=== PATIENT | male | born 1965 | race African-American/Black ===

== ENCOUNTER 2021-08-15 01:32 | Emergency (ER) | payer OTHER, MEDICAID ==
[~2021-08-15] VITALS: Ht 188 cm; Wt 113.4 kg
[2021-08-15 01:45] VITALS: BP 128/100
[2021-08-15 03:05] LABS: Basophils # (auto) 0.1 10 ^3/uL (0-0.2); Eosinophils # (auto) 0 10 ^3/uL (0-0.8)
[2021-08-15 03:08] LABS: Monocytes # (auto) 0.6 10 ^3/uL (0-1.3)
[2021-08-15 03:20] LABS: Albumin 2.6 g/dL (3.4-5.0); Calcium 8.4 mg/dL (8.5-10.1); Eosinophils % (auto) 0.2 % (0.0-7.0); Potassium 3.8 mmol/L (3.5-5.1)
[2021-08-15 03:23] LABS: Basophils % (auto) 1.3 % (0.0-2.0); Hematocrit 34.9 % (41.0-53.0); Lymphocytes # (auto) 1.6 10 ^3/uL (0.4-5.4); Lymphocytes % (auto) 34.2 % (10.0-50.0); Mean Corpuscular Hemoglobin 23.9 pg (28.0-32.0); Mean Corpuscular Hgb Conc. 31.4 g/dL (32.0-36.0); Monocytes % (auto) 13.9 % (0.0-12.0); Neutrophils # (auto) 2.3 10 ^3/uL (1.6-8.6); Neutrophils % (auto) 50.4 % (37.0-80.0); Nucleated Red Blood Cells % 1.3 %; Red Blood Cells 4.59 10^6/uL (4.5-5.90); White Blood Cell 4.6 10^3/uL (4.4-10.8)
[2021-08-15 03:25] LABS: BUN/Creatinine Ratio 10.7; Bilirubin, Total 3.1 mg/dL (0.2-1.0); Red Cell Distribution Width 23.8 % (11.8-14.3); Total Protein 7.7 g/dL (6.4-8.2)
== END 2021-08-15 05:58 | disposition home or self-care (01) ==
LOC: ER 01:32 → EDBD 01:32 → ER 05:58
DX: R51.9 Headache, unspecified (principal); E11.40 Type 2 diabetes mellitus with diabetic neuropathy, unspecified; I13.0 Hypertensive heart and chronic kidney disease with heart failure and stage 1 through stage 4 chronic kidney disease, or unspecified chronic kidney disease; E11.22 Type 2 diabetes mellitus with diabetic chronic kidney disease; N18.9 Chronic kidney disease, unspecified; I50.9 Heart failure, unspecified; Z88.6 Allergy status to analgesic agent
CPT/HCPCS: 36415; 71045; 80053; 83880; 84484; 85025; 93005

== ENCOUNTER 2025-03-20 13:27 | Inpatient (IN) | payer MEDICAID, OTHER ==
[~2025-03-20] VITALS: Ht 188 cm; Wt 92.0 kg
[~2025-03-20 13:27] MED LIST: ACET300T51 PO; ATOR20TA50 PO; BUME2TAB5 PO; CEPH500C PO; GABA-1250 PO; HYDR-4798 PO; LEVE500T3 PO; LOS25T PO; SODI650T PO; TIZA-206 PO
--- NOTE | 2025-03-20 13:38 | ECG ---
[facility] Test Date: 2025-03-20 Test Time: 13:24:41 Pat Name: CYNTHIA OROPEZA Department: Room: 0234T Gender: M Bakery Helper: TIMOTHY : 1965 Requested By: EMERGENCY EMERGENCY Order Number: [id number] Reading MD: Jt Ponce Measurements Intervals [place] Rate: 86 P: 80 ND: 212 QRS: 124 QRSD: 115 T: 127 QT: 447 QTc: 535 Interpretive Statements Sinus rhythm Prolonged ND interval Left posterior fascicular block Nonspecific T abnormalities, lateral leads Electronically Signed On 03-23-2025 9:37:33 PDT by Jt Ponce Please click the below link to view image of tracing.
--- NOTE | 2025-03-20 14:23 | ED.PDOC ---
SOB-HPI HPI Comments 60 y/o M, BIBA, with PMHx of CHF, CKF, CVA, DM, HTN, and seizures presents to the ED for CC of shortness of breath. EMS reports, patient is coming from home where he c/o shortness of breath sudden onset, yesterday (03/20/25). Patient relays, that he uses at home oxygen at 4L pm via [place] at night; despite oxygen usage has experienced no relied. Patient denies cough, nasal congestion, sore- throat, chest pain, or fever. No other symptoms or modifying factors are present at this time. Chief Complaint: Shortness of Breath Time Seen by MD: 14:15 Reviewed notes: Nurses Notes, Executive Vice President Of Sales Notes, Medications, Allergies Information Source: Patient, Emergency Med Personnel Mode of Arrival: EMS Severity: Moderate Timing: Hours Duration: Since onset Context: At Rest PE Risk Factors: None History of: CHF Prehospital treatment: None Modifying Factors: Nothing Associated Signs and Symptoms: None Past Medical History PAST MEDICAL HISTORY: CHF, CKF, CVA, DM, HTN, Seizures Surgical History: Denies all surgeries Family History Family History: Reviewed,noncontributory to illness Social History Smoker: Non-Smoker Alcohol: Denies ETOH Use Drugs: Denies Drug Use Lives In: Home Constitutional: denies: chills, diaphoresis, fatigue, fever, malaise, sweats, weakness, others EENTM: denies: blurred vision, double vision, ear bleeding, ear discharge, ear drainage, ear pain, ear ringing, eye pain, eye redness, hearing loss, mouth pain, mouth swelling, nasal discharge, nose bleeding, nose congestion, nose pain, photophobia, tearing, throat pain, throat swelling, voice changes, others Respiratory: reports: shortness of breath; denies: cough, hemoptysis, orthopnea, SOB at rest, SOB with excertion, stridor, wheezing, others Cardiovascular: denies: chest pain, dizzy spells, diaphoresis, Dyspnea on exertion, edema, irregular heart beat, left arm pain, lightheadedness, palpitations, PND, syncope, others Gastrointestinal: denies: abdomen distended, abdominal pain, blood streaked bowels, constipated, diarrhea, dysphagia, difficulty swallowing, hematemesis, melena, nausea, poor appetite, poor fluid intake, rectal bleeding, rectal pain, vomiting, others Genitourinary: denies: burning, dysuria, flank pain, frequency, hematuria, incontinence, penile discharge, penile sore, pain, testicle pain, testicle swelling, urgency, others Neurological: denies: dizziness, fainting, headache, left sided numbness, left sided weakness, numbness, paresthesia, pre-existing deficit, right sided numbness, right sided weakness, seizure, speech problems, tingling, tremors, weakness, others Musculoskeletal: denies: back pain, gout, joint pain, joint swelling, muscle pain, muscle stiffness, neck pain, others Integumetry: denies: bruises, change in color, change in hair/nails, dryness, laceration, lesions, lumps, rash, wounds, others Allergic/Immunocompromised: denies: Difficulty Healing, Frequent Infections, Hives, Itching, others Hematologic/Lymphatic: denies: anemia, blood clots, easy bleeding, easy bruising, swollen glands, others Endocrine: denies: excessive hunger, excessive sweating, excessive thirst, excessive urination, flushing, intolerance to cold, intolerance to heat, unexplained weight gain, unexplained weight loss, others Psychiatric: denies: anxiety, bipolar disorder, depression, hopeless, panic disorder, schizophrenia, sleepless, suicidal, others All Other Systems: Reviewed and Negative Physical Exam General Appearance: Moderate Distress HEENT: Normal ENT Inspection, Pharynx Normal, TMs Normal Neck: Full Range of Motion, Non-Tender, Normal, Normal Inspection Respiratory: Other (Coarse breath sounds) Cardiovascular: No Edema, No JVD, No Murmur, No Gallop, Normal Peripheral Pulses, Regular Rate/Rhythm Breast Exam: Deferred Gastrointestinal: No Organomegaly, Non Tender, No Pulsatile Mass, Normal Bowel Sounds, Soft Genitalia: Deferred Pelvic: Deferred Rectal: Deferred Extremities: Decreased range of motion (Bilateral lower extremity), No calf tenderness, Pedal edema Musculoskeletal : Apperance: Normal Neurologic: Alert, No Motor Deficits, No Sensory Deficits Cerebellar Function: NOT DONE Reflexes: NOT DONE Skin: Wounds (Left ankle area medial aspect wound dehiscence) Peripheral Pulses: 3+ Radial (R), 3+ Radial (L) Lymphatic: No Adenopathy Was a procedure done? Was a procedure done?: No Differential Dx Differential Diagnosis: Anxiety, Asthma, Bronchitis, CHF, COPD, Pneumonia, Pulmonary Embolism, Sinusitis, Pharyngitis, URI X-Ray, Labs, Meds, VS Vital Signs Date Time Temp Pulse Resp B/P (MAP) Pulse Ox O2 Delivery O2 Flow Rate FiO2 03/20/25 13:59 93 18 107/67 (80) 100 03/20/25 13:32 98.0 80 18 111/59 100 98.0 03/20/25 13:27 86 Lab Test 03/20/25 15:19 Range/Units White Blood Count 5.3 4.4-10.8 10^3/uL Red Blood Count 3.07 L 4.5-5.90 10^6/uL Hemoglobin 7.7 L 13.5-17.5 g/dL Hematocrit 23.0 L 41.0-53.0 % Mean Corpuscular Volume 74.7 L 80.0-100.0 fL Mean Corpuscular Hemoglobin 24.9 L 28.0-32.0 pg Mean Corpuscular Hemoglobin Concent 33.3 32.0-36.0 g/dL Red Cell Distribution Width 21.3 H 11.8-14.3 % Platelet Count 73 L 140-450 10^3/uL Mean Platelet Volume 8.8 6.9-10.8 fL Neutrophils (%) (Auto) 65.4 37.0-80.0 % Lymphocytes (%) (Auto) 24.9 10.0-50.0 % Monocytes (%) (Auto) 8.8 0.0-12.0 % Eosinophils (%) (Auto) 0.6 0.0-7.0 % Basophils (%) (Auto) 0.3 0.0-2.0 % Neutrophils # (Auto) 3.4 1.6-8.6 10 ^3/uL Lymphocytes # (Auto) 1.3 0.4-5.4 10 ^3/uL Monocytes # (Auto) 0.5 0-1.3 10 ^3/uL Eosinophils # (Auto) 0 0-0.8 10 ^3/uL Basophils # (Auto) 0 0-0.2 10 ^3/uL Nucleated Red Blood Cells 0.1 % Platelet Estimate Pending Sodium Level 135 L 136-145 mmol/L Potassium Level 3.7 3.5-5.1 mmol/L Chloride Level 99 98-107 mmol/L Carbon Dioxide Level 26 20-31 mmol/L Anion Gap 10 5-15 Blood Urea Nitrogen Pending Creatinine Pending Glomerular Filtration Rate Calc Pending BUN/Creatinine Ratio Pending Serum Glucose Pending Calcium Level 8.1 L 8.7-10.4 mg/dL Troponin I High Sensitivity Pending B-Type Natriuretic Peptide Pending Patient alert. Vitals stable. Complaining of shortness a breath. Answering questions. Has gaps when he speaks possibly from shortness a breath. Possible CHF. He did have a wound in the left ankle medial aspect that has been sutured at [facility]. Wound dehiscence. Was given Lasix. Explained to the patient. Clinically monitoring. [place] [id number] Ph: [phone] DIAGNOSTIC IMAGING Diagnostic Imaging Report : [id number] Signed PATIENT: CYNTHIA OROPEZA ACCT: [id number] UNIT: [id number] : 1965 LOC: ER ROOM / BED: / AGE / SEX: 60 / M ADM STATUS: REG ER SERVICE 1450 ORDERING PHYSICIAN: SKIP MEDRANO MD PROCEDURE(s): CXRP - CHEST PORTABLE REASON: sob ORDER NUMBER(s): [id number], ACCESSION NUMBER(s): [id number] CHEST RADIOGRAPH Indication: sob Technique: Single frontal view of the chest was obtained COMPARISON: XR CHEST 1 VIEW on DOS: 01/19/23, XR CHEST 1 VIEW on DOS: 01/15/23, CHEST PORTABLE on DOS: 08/15/21 FINDINGS: Lines and Tubes: None Lungs: Congestion Pleura: No effusion. No pneumothorax. Cardiomediastinal contours: Cardiomegaly Bones: Unremarkable IMPRESSION: Increased interstital prominence. This may represent pulmonary vascular congestion and/or viral pneumonia. Clinical correlation advised. ATED BY: SEAN MCPHERSON MD DICTATED DATE/TIME: 03/20/251518 SIGNED BY: SEAN MCPHERSON MD SIGNED DATE/TIME: 03/20/251518 CC: Time of 1ST Reevaluation: 14:45 Reevaluation 1ST: Unchanged Patient Education/Counseling: Diagnosis, Treatment Family Education/Counseling: No Family Present SEPSIS Sepsis Screen Date sepsis recognized/suspect: Mar 20, 2025 Time Sepsis recognized/suspect: 1329 Recent Procedure: No On Antibiotic Therapy: No Respiratory Rate >20: No Heart Rate >90: No Temp<36 C (96.8 F) or >38.3 C: No SBP <90 or MAP <65 mmHG: No New Acute Mental Status Change: No Is the patient on CPAP, BIPAP,: No Physician Orders Troponin-I Hs (03/20/25 14:50) Complete Blood Count (03/20/25 14:50) Chest Portable (03/20/25 14:50) Urinalysis (03/20/25 14:50) Basic Metabolic Panel (03/20/25 14:50) Troponin-I Hs (03/20/25 15:50) Troponin-I Hs (03/20/25 17:50) B-Type Natriuretic Peptide (03/20/25 14:50) Rbc Morphology (03/20/25 15:19) Vital Signs Date Time Temp Pulse Resp B/P (MAP) Pulse Ox O2 Delivery O2 Flow Rate FiO2 03/20/25 13:59 93 18 107/67 (80) 100 03/20/25 13:32 98.0 80 18 111/59 100 98.0 03/20/25 13:27 86 Laboratory Tests Test 03/20/25 15:19 White Blood Count 5.3 10^3/uL (4.4-10.8) Departure 1 Departure Time of Disposition: 14:58 Impression: Primary Impression: CHF (congestive heart failure) Qualified Codes: I50.43 - Acute on chronic combined systolic (congestive) and diastolic (congestive) heart failure Disposition: ADMITTED INPATIENT Admit to: Med Surg Condition: Guarded Critical Care Note Critical Care Time?: Yes (90 min-critical care time only) Stability Stability form required: No Heart Score Heart Score: Heart Score Response (Comments) Value History N/A 0 EKG N/A 0 Age N/A 0 Risk Factors N/A 0 Troponin N/A 0 Total 0 I personally scribed for SKIP MEDRANO MD ([email or web address]) on 03/20/25 at 14:23. Electronically submitted by Ramona Zepeda ([email or web address]). I personally scribed for SKIP MEDRANO MD ([email or web address]) on 03/20/25 at 15:57. Electronically submitted by Ramona Zepeda ([email or web address]). SKIP MEDRANO MD Mar 20, 2025 14:23
[2025-03-20] MEDS: FUROSEMIDE 40 MG/4 ML VIAL IV ONE (15:00)
--- NOTE | 2025-03-20 15:22 | DVH ---
CHEST RADIOGRAPH Indication: sob Technique: Single frontal view of the chest was obtained COMPARISON: XR CHEST 1 VIEW on DOS: 01/19/23, XR CHEST 1 VIEW on DOS: 01/15/23, CHEST PORTABLE on DOS: 08/15/21 FINDINGS: Lines and Tubes: None Lungs: Congestion Pleura: No effusion. No pneumothorax. Cardiomediastinal contours: Cardiomegaly Bones: Unremarkable IMPRESSION: Increased interstital prominence. This may represent pulmonary vascular congestion and/or viral pneum onia. Clinical correlation advised.
[2025-03-20 15:46] LABS: Hematocrit 23.0 % (41.0-53.0); Hemoglobin 7.7 g/dL (13.5-17.5); Mean Corpuscular Hemoglobin 24.9 pg (28.0-32.0); Mean Corpuscular Volume 74.7 fL (80.0-100.0); Nucleated Red Blood Cells % 0.1 %
[2025-03-20 15:51] LABS: Chloride 99 mmol/L (98-107); Potassium 3.7 mmol/L (3.5-5.1)
[2025-03-20 15:53] LABS: Anion Gap 10 (5-15); Carbon Dioxide 26 mmol/L (20-31)
[2025-03-20 15:54] LABS: Calcium 8.1 mg/dL (8.7-10.4); Sodium 135 mmol/L (136-145)
[2025-03-20 15:58] LABS: BUN/Creatinine Ratio 11.2 (10.0-20.0); Blood Urea Nitrogen 23 mg/dL (9-23); Glucose 98 mg/dL (74-106)
[2025-03-20 16:18] LABS: Anisocytosis Slight
[2025-03-20] MEDS ORDERED: NITROGLYCERIN 0.4 MG SL TAB SL PRN (17:30)
[2025-03-20] MEDS ORDERED: MORPHINE SULFATE INJ 2 MG/ml SYRG IV PRN (17:30)
[2025-03-20] MEDS ORDERED: ONDANSETRON HCL 4 MG/2 ML VIAL IV PRN (17:30)
[2025-03-20 17:58] LABS: INR 1.25 (0.9-1.15); Partial Thromboplastin Time 34.6 SEC (24.5-34.5); Prothrombin Time 13.0 sec (9.3-11.8)
[2025-03-20 18:12] LABS: Triglycerides 59 mg/dL (< 150)
[2025-03-20 18:14] LABS: Cholesterol 90 mg/dL (< 200)
[2025-03-20 18:34] LABS: HDL Cholesterol 35 mg/dL (40-59)
--- NOTE | 2025-03-20 18:37 | DVHHPRES ---
History of Present Illness Resident Creating Document: SHELLY BHATTI RESIDENT History of Present Illness CYNTHIA OROPEZA is a 60-year-old male with a PMH of CHF, CKD, CVA, type 2 DM, HTN, seizure presented to the ED with the chief complaints of worsening of shortness of breath for 1 week. The patient has been experiencing shortness of breath for about 3 days which has been consistent throughout the day and night, he also reports chest pain started 2 days ago localized in the left side of the chest and the pain is described as sharp and stinging in the same place with the no radiation, no aggravating, no relieving factors. On my assessment patient denies fever, pallor, dizziness, chills, recent flu-like symptoms CV and other associated symptoms at this time. Patient is polysubstance abuser still using, smoking, drinking, methamphetamines occasionally. PMH: As above PSH: None Family history: Noncontributo Social history: lives at home. Smokes cigarettes less than a pack for 40 years, 1 glass per day alcohol use, marijuana abuse and methamphetamine abuse but denies other drug abuse Allergies: No known allergies Home medications: amiodarone 200 mg b.i.d., aspirin 81 mg, Lipitor 20 mg, Coreg 6.25 mg, Cozaar 25 mg, Keppra 500 mg b.i.d., Protonix Patient seen and examined at the bedside. Patient is currently complaining of shortness of breath and rest of the ROS is negative Review of Systems Allergies: Coded Allergies: Aspirin (Verified Allergy, Unknown, 03/20/25) Ibuprofen (Verified Allergy, Unknown, 08/15/21) Lisinopril (Verified Allergy, Unknown, 03/20/25) Medications Current Medications Medications Dose Ordered Sig/Maryan Route Start Time Stop Time Status Last Admin Dose Admin Sodium Chloride 10 ml Q8HR IV 03/20/25 22:00 Ondansetron HCl 4 mg Q4HP PRN IV 03/20/25 17:30 Enoxaparin Sodium 40 mg DAILY SC 03/21/25 10:00 UNV Acetaminophen 650 mg Q6HP PRN PO 03/20/25 17:30 Morphine Sulfate 2 mg Q4HPRN PRN IV 03/20/25 17:30 Nitroglycerin 0.4 mg Q5MINP PRN SL 03/20/25 17:30 Morphine Sulfate 2 mg Q30M PRN IV 03/20/25 17:30 Levetiracetam 500 mg BID PO 03/20/25 22:00 Pantoprazole Sodium 40 mg DAILY@0600 PO 03/21/25 06:00 Amiodarone HCl 200 mg Q12HR PO 03/20/25 22:00 Aspirin 81 mg DAILY PO 03/21/25 10:00 UNV Losartan Potassium 25 mg DAILY PO 03/21/25 10:00 Carvedilol 3.125 mg Q12HR PO 03/20/25 22:00 Atorvastatin Calcium 20 mg HS PO 03/20/25 22:00 Furosemide 40 mg DAILY IV 03/21/25 10:00 Exam Vital Signs Vital Signs Date Time Temp Pulse Resp B/P (MAP) Pulse Ox O2 Delivery O2 Flow Rate FiO2 03/20/25 18:00 98.1 92 18 110/60 (77) 99 98.1 Exam Pt is lying on bed General Appearance: Alert, Oriented X3, Cooperative, Not in acute distress HEENT: Atraumatic, Mucous membranes moist/pink Respiratory: Clear to auscultation, Normal air movement, No added sounds Cardiovascular: Regular rate, Normal S1, Normal S2, No murmurs, reproducible chest tenderness on the right side Abdominal: Active bowel sounds, Soft, no distention, no tenderness Extremities: 1+ BLE edema, Normal pulses, No tenderness/swelling Skin: No Significant rash, except past surgical scars Neuro: Normal speech, sensorimotor deficits none Psych/Mental Status: Mental status NL, Mood NL Nurse was there as outside event sales specialist during examination Labs/Xrays Labs Test 03/20/25 18:24 03/20/25 16:44 03/20/25 15:19 Range/Units Troponin I High Sensitivity 11 </=54 ng/L White Blood Count 5.3 4.4-10.8 10^3/uL Red Blood Count 3.07 L 4.5-5.90 10^6/uL Hemoglobin 7.7 L 13.5-17.5 g/dL Hematocrit 23.0 L 41.0-53.0 % Mean Corpuscular Volume 74.7 L 80.0-100.0 fL Mean Corpuscular Hemoglobin 24.9 L 28.0-32.0 pg Mean Corpuscular Hemoglobin Concent 33.3 32.0-36.0 g/dL Red Cell Distribution Width 21.3 H 11.8-14.3 % Platelet Count 73 L 140-450 10^3/uL Mean Platelet Volume 8.8 6.9-10.8 fL Neutrophils (%) (Auto) 65.4 37.0-80.0 % Lymphocytes (%) (Auto) 24.9 10.0-50.0 % Monocytes (%) (Auto) 8.8 0.0-12.0 % Eosinophils (%) (Auto) 0.6 0.0-7.0 % Basophils (%) (Auto) 0.3 0.0-2.0 % Neutrophils # (Auto) 3.4 1.6-8.6 10 ^3/uL Lymphocytes # (Auto) 1.3 0.4-5.4 10 ^3/uL Monocytes # (Auto) 0.5 0-1.3 10 ^3/uL Eosinophils # (Auto) 0 0-0.8 10 ^3/uL Basophils # (Auto) 0 0-0.2 10 ^3/uL Nucleated Red Blood Cells 0.1 % Platelet Estimate Decreased Hypochromasia (manual) Slight Poikilocytosis (manual) Slight Anisocytosis (manual) Slight Microcytosis Slight Prothrombin Time 13.0 H 9.3-11.8 sec Prothrombin Time INR 1.25 H 0.9-1.15 Activated Partial Thromboplast Time 34.6 H 24.5-34.5 SEC D-Dimer, Quantitative 7.38 H 0.0-0.49 mg/L FEU Sodium Level 135 L 136-145 mmol/L Potassium Level 3.7 3.5-5.1 mmol/L Chloride Level 99 98-107 mmol/L Carbon Dioxide Level 26 20-31 mmol/L Anion Gap 10 5-15 Blood Urea Nitrogen 23 9-23 mg/dL Creatinine 2.05 H 0.700-1.30 mg/dL Glomerular Filtration Rate Calc 36 >90 mL/min BUN/Creatinine Ratio 11.2 10.0-20.0 Serum Glucose 98 74-106 mg/dL Calcium Level 8.1 L 8.7-10.4 mg/dL B-Type Natriuretic Peptide 682.54 0-100 pg/mL Triglycerides Level 59 < 150 mg/dL Cholesterol Level 90 < 200 mg/dL LDL Cholesterol 39 < 100 mg/dL HDL Cholesterol 35 L 40-59 mg/dL SEPSIS Sepsis Screen Date sepsis recognized/suspect: Mar 20, 2025 Time Sepsis recognized/suspect: 1328 Recent Procedure: No On Antibiotic Therapy: No Respiratory Rate >20: No Heart Rate >90: No Temp<36 C (96.8 F) or >38.3 C: No SBP <90 or MAP <65 mmHG: No New Acute Mental Status Change: No Is the patient on CPAP, BIPAP,: No Physician Orders Chest Portable (03/20/25 14:50) Urinalysis (03/20/25 14:50) Troponin-I Hs (03/20/25 17:50) Admit (03/20/25 17:17) Allergies (03/20/25 17:17) Code Status (03/20/25 17:17) 2 Gm Sodium Diet (03/20/25 Dinner) Sodium Chloride Lock (Saline Lock Ns) (03/20/25 22:00) Oxygen Per Hour (03/20/25 17:17) Ondansetron Hcl (Zofran) (03/20/25 17:30) Enoxaparin Sodium (Lovenox) (03/21/25 10:00) Complete Blood Count (03/21/25 04:00) Comprehensive Metabolic Panel (03/21/25 04:00) Cardiac Diet-2gna,Lofat,Lochol (03/20/25 Dinner) Condition: Fair (03/20/25 17:17) Acetaminophen Tablet (Tylenol Tablet) (03/20/25 17:30) Morphine Sulfate Injection (03/20/25 17:30) Nitroglycerin Sublingual (Ntrostat Subli (03/20/25 17:30) Morphine Sulfate Injection (03/20/25 17:30) Oxygen By Nasal Cannula (03/20/25 17:17) Stat Ekg For Chest Pain (03/20/25 17:17) Notify Md Of Changes From Base (03/20/25 17:17) Anthropology Department Chair For 24 Hours (03/20/25 17:17) Emergency Dysrhythmia Protocol (03/20/25 17:17) Rhythm Strips Once Every Shift (03/20/25 17:17) Echo 2d Mode Cardiac Dop (03/20/25 17:17) Magnesium (03/20/25 17:17) Urinalysis (03/20/25 17:17) Thyroid Stimulating Hormone (03/20/25 17:17) Lipid Panel (03/20/25 17:17) Hepatic Panel (03/20/25 17:17) Drug Screen (03/20/25 17:17) Blood Alcohol (03/20/25 17:17) Covid19 Antigen Joyce (03/20/25 17:17) Rapid Influenza A&B (03/20/25 17:17) Levetiracetam Tablet (Keppra Tablet) (03/20/25 22:00) Pantoprazole Tablet (Protonix Tablet) (03/21/25 06:00) Amiodarone Tablet (Cordarone Tablet) (03/20/25 22:00) Aspirin Tablet (03/20/25 17:30) Aspirin Tablet (03/21/25 10:00) Losartan Tablet (Cozaar Tablet) (03/21/25 10:00) Carvedilol Tablet (Coreg Tablet) (03/20/25 22:00) Atorvastatin (Lipitor) (03/20/25 22:00) Furosemide Injection (Lasix Injection) (03/21/25 10:00) Strict I & O QSHIFT (03/20/25 17:17) Maintain Fluid Restrictions QSHIFT (03/20/25 17:17) Vital Signs Date Time Temp Pulse Resp B/P (MAP) Pulse Ox O2 Delivery O2 Flow Rate FiO2 03/20/25 18:00 98.1 92 18 110/60 (77) 99 98.1 03/20/25 13:59 93 18 107/67 (80) 100 03/20/25 13:32 98.0 80 18 111/59 100 98.0 03/20/25 13:27 86 Laboratory Tests Test 03/20/25 15:19 White Blood Count 5.3 10^3/uL (4.4-10.8) Assessment/Plan Assessment/Plan # Acute on chronic systolic versus diastolic CHF # Chest pain rule out ACS likely costochondritis # Polysubstance abuse, methamphetamine, marijuana, alcohol - telemetry - echocardiogram, pending - started on GDM T Coreg, Cozaar - Lasix 40 mg IV daily - CXR showed congestion - strict I&Os and fluid restriction - UDS - continue aspirin # HX of CVA - resumed aspirin and Lipitor # KEKE likely due to VMN on CKD -monitor lab -avoid nephrotoxic agents # Microcytic hypochromic anemia # Thrombocytopenia - monitor lab for now # tobacco use disorder/dependence # methamphetamine use disorder # alcohol use disorder, monitor for withdrawal # marijuana use disorder -counseled regarding cessation for more than 17 minutes -consider nicotine patch if needed GI PPX: Protonix VTE ppx: scds Diet: cardiac diet as tolerated Goals of care addressed with the patient for more than 27 minutes: Full code status Case discussed with Dr. Major ,patient and nurse Plan discussed with: Patient My Orders Orders - SHELLY BHATTI RESIDENT Procedure Category Date Status Time Admit ADMIT 03/20/25 Transmitted 17:17 Allergies YURI 03/20/25 In Process 17:17 Code Status CODE 03/20/25 Transmitted 17:17 2 Gm Sodium Diet DIET 03/20/25 Transmitted Dinner Sodium Chloride Lock PHA 03/20/25 In Process (Saline Lock Ns) 22:00 Oxygen Per Hour RT 03/20/25 Transmitted 17:17 Ondansetron Hcl PHA 03/20/25 In Process (Zofran) 17:30 Enoxaparin Sodium PHA 03/21/25 Logged (Lovenox) 10:00 Complete Blood Count LAB 03/21/25 Verified 04:00 Comprehensive LAB 03/21/25 Verified Metabolic Panel 04:00 Cardiac DIET 03/20/25 Transmitted Diet-2gna,Lofat,Lochol Dinner Condition: Fair YURI 03/20/25 In Process 17:17 Acetaminophen Tablet PHA 03/20/25 In Process (Tylenol Tablet) 17:30 Morphine Sulfate PHA 03/20/25 In Process Injection 17:30 Nitroglycerin PHA 03/20/25 In Process Sublingual (Ntrostat 17:30 Morphine Sulfate PHA 03/20/25 In Process Injection 17:30 Oxygen By Nasal RT 03/20/25 Transmitted Cannula 17:17 Stat Ekg For Chest YURI 03/20/25 In Process Pain 17:17 Notify Of Changes [facility] 03/20/25 In Process From Base 17:17 Anthropology Department Chair For [facility] 03/20/25 In Process 24 Hours 17:17 Emergency Dysrhythmia YURI 03/20/25 In Process Protocol 17:17 Rhythm Strips Once [facility] 03/20/25 In Process Every Shift 17:17 Echo 2d Mode Cardiac US 03/20/25 Logged DOP 17:17 Magnesium LAB 03/20/25 Logged 17:17 Urinalysis LAB 03/20/25 Logged 17:17 Thyroid Stimulating LAB 03/20/25 In Process Hormone 17:17 Lipid Panel LAB 03/20/25 In Process 17:17 Hepatic Panel LAB 03/20/25 Logged 17:17 Drug Screen LAB 03/20/25 Logged 17:17 Blood Alcohol LAB 03/20/25 Logged 17:17 Covid19 Antigen Joyce LAB 03/20/25 Logged 17:17 Rapid Influenza A&B LAB 03/20/25 Logged 17:17 Levetiracetam Tablet PHA 03/20/25 In Process (Keppra Tablet) 22:00 Pantoprazole Tablet PHA 03/21/25 In Process (Protonix Tablet) 06:00 Amiodarone Tablet PHA 03/20/25 In Process (Cordarone Tablet) 22:00 Aspirin Tablet PHA 03/20/25 Logged 17:30 Aspirin Tablet PHA 03/21/25 Logged 10:00 Losartan Tablet PHA 03/21/25 In Process (Cozaar Tablet) 10:00 Carvedilol Tablet PHA 03/20/25 In Process (Coreg Tablet) 22:00 Atorvastatin (Lipitor) PHA 03/20/25 In Process 22:00 Furosemide Injection PHA 03/21/25 In Process (Lasix Injection) 10:00 Strict I & O YURI 03/20/25 In Process 17:17 Maintain Fluid YURI 03/20/25 In Process Restrictions 17:17 Date of Service: Mar 20, 2025 Billing Provider: TIFFANIE AGGARWAL MD Common Visit Codes: 21585-[id number] INP/OBS CARE (HIGH) Secondary Visit Codes: 48305-FOUCNQZH CARE PLAN 30 MINUTES TRIPP BHATTIBenitaROCÍO RESIDENT Mar 20, 2025 18:36 TIFFANIE AGGARWAL MD Mar 27, 2025 18:45
[2025-03-20 19:10] LABS: Alanine Aminotransferase 22 U/L (7-40); Total Protein 6.9 g/dL (5.7-8.2)
[2025-03-20 19:11] LABS: Albumin 2.6 g/dL (3.2-4.8); Alkaline Phosphatase 385 U/L (46-116); Bilirubin, Direct 1.3 mg/dL (<0.3); Bilirubin, Total 2.0 mg/dL (0.2-1.0); Magnesium 1.5 mg/dL (1.6-2.6)
[2025-03-20] MEDS: HYDROcodone-ACET 5/325MG TAB PO ONE (20:40)
[2025-03-20] MEDS: HYDROcodone-ACET 5/325MG TAB ONE (20:40)
[2025-03-20] MEDS: ATORVASTATIN 20 MG TAB PO SCH (22:00)
[2025-03-21] VITALS (18 sets, daily range): BP systolic 90–133; BP diastolic 50–74; PULSE 68–92; RESP 14–22; TEMP 97.1–98.1; O2SAT 89–100
[2025-03-21] MEDS: AMIODARONE HCL 200 MG TAB ONE (00:51)
[2025-03-21] MEDS: ONDANSETRON HCL 4 MG/2 ML VIAL ONE (00:51)
[2025-03-21] MEDS: CARVEDILOL 3.125 MG TAB ONE (00:51)
[2025-03-21] MEDS: levETIRAcetam 500 MG TAB ONE (00:51)
[2025-03-21] MEDS: PANTOPRAZOLE 40 MG/10 ML VIAL INJ IV ONE ×2 (01:03→01:04)
[2025-03-21] MEDS: SODIUM CHLOR 0.9% PF (SALINE LOCK) 10ML VIAL/SYR IV SCH (01:03)
[2025-03-21] MEDS: AMIODARONE HCL 200 MG TAB PO SCH (01:04)
[2025-03-21] MEDS: SODIUM CHLORIDE 0.9% 500 ML IV ONE (01:04)
[2025-03-21] MEDS: ONDANSETRON HCL 4 MG/2 ML VIAL IV ONE (01:04)
[2025-03-21] MEDS: levETIRAcetam 500 MG TAB PO SCH (01:05)
[2025-03-21] MEDS: CARVEDILOL 3.125 MG TAB PO SCH (01:05)
[2025-03-21 01:07] LABS: COVID19 ANTIGEN SOFIA FIA POSITIVE (NEGATIVE)
[2025-03-21 01:58] LABS: Hematocrit 18.1 % (41.0-53.0)
[2025-03-21 01:58] LABS: Cannabinoid Screen, Urine Pos (NEGATIVE); Opiate Scree,Urine Neg (NEGATIVE)
[2025-03-21 02:01] LABS: Hemoglobin 6.0 g/dL (13.5-17.5)
[2025-03-21 02:09] LABS: Amphetamine Screen, Urine Neg (NEGATIVE); Barbiturate Scree,Urine Neg (NEGATIVE); Benzodiazephine Screen, Urine Neg (NEGATIVE); Cocaine Screen, Urine Neg (NEGATIVE); Phencyclidine Screen, Urine Pos (NEGATIVE)
[2025-03-21 02:19] LABS: Urine Protein, UAD Negative (Negative)
[2025-03-21] MEDS: PANTOPRAZOLE 40 MG TAB PO SCH ×2 (06:00→21:58)
[2025-03-21] MEDS: PANTOPRAZOLE 40 MG TAB PO ONE (06:13)
[2025-03-21 06:55] LABS: Mean Corpuscular Volume 75.6 fL (80.0-100.0); Nucleated Red Blood Cells % 0.1 %
[2025-03-21 07:03] LABS: Hematocrit 16.1 % (41.0-53.0); Mean Corpuscular Hemoglobin 25.5 pg (28.0-32.0)
[2025-03-21 07:16] LABS: Alanine Aminotransferase 23 U/L (7-40); Anion Gap 10 (5-15); BUN/Creatinine Ratio 16.5 (10.0-20.0); Carbon Dioxide 27 mmol/L (20-31); Chloride 104 mmol/L (98-107); Glucose 98 mg/dL (74-106); Potassium 4.5 mmol/L (3.5-5.1); Sodium 141 mmol/L (136-145); Total Protein 6.0 g/dL (5.7-8.2)
[2025-03-21 07:19] LABS: Hemoglobin 5.4 g/dL (13.5-17.5)
[2025-03-21 07:21] LABS: Albumin 2.3 g/dL (3.2-4.8); Alkaline Phosphatase 309 U/L (46-116); Bilirubin, Total 2.3 mg/dL (0.2-1.0); Blood Urea Nitrogen 32 mg/dL (9-23); Calcium 8.0 mg/dL (8.7-10.4)
[2025-03-21] MEDS: MAGNESIUM SULFATE 1GM/100ML 100 ML IV ONE (08:00)
[2025-03-21] MEDS ORDERED: REMDESIVIR PER PHARMACY 0 ML IV SCH (08:30)
[2025-03-21] MEDS ORDERED: MAGNESIUM SULFATE 1GM/100ML 100 ML IV SCH (09:00)
[2025-03-21] MEDS: DOXYCYCLINE 100MG/100ML 100 ML IV SCH (09:30)
[2025-03-21 09:35] LABS: Anisocytosis Slight; Ovalocytes FEW
[2025-03-21 09:52] LABS: INR 1.43 (0.9-1.15); Partial Thromboplastin Time 35.4 SEC (24.5-34.5); Prothrombin Time 14.6 sec (9.3-11.8)
--- NOTE | 2025-03-21 09:53 | DVH ---
US BiLat Lower DVT HISTORY: D-7.3 COMPARISON: None TECHNIQUE: Duplex doppler evaluation of the deep venous system of the lower extremity from the common femoral veins, superficial femoral vein, great saphenous vein, deep femoral vein, popliteal vein, an d calf veins, including color doppler and spectral/pulsed waveform analysis, was performed. FINDINGS: Right: - Common femoral vein: Compressible - Deep femoral vein: Compressible - Femoral vein: Compressible - Popliteal vein: Compressible - Posterior tibial vein: Waveforms present - Other: Nothing Left: - Common femoral vein: Compressible - Deep femoral vein: Compressible - Femoral vein: Compressible - Popliteal vein: Compressible - Posterior tibial vein: Waveforms present - Other: Nothing IMPRESSION: No right or left lower extremity deep venous thrombosis.
[2025-03-21] MEDS ORDERED: ENOXAPARIN SOD 40 MG/0.4 ML SYRINGE SC SCH (10:00)
[2025-03-21] MEDS ORDERED: FUROSEMIDE 40 MG/4 ML VIAL IV SCH ×2 (10:00)
[2025-03-21] MEDS ORDERED: LOSARTAN POTASSIUM 25 MG TAB PO SCH (10:00)
[2025-03-21 10:05] LABS: Protein, Urine 12.5 mg/dL (1-14)
--- NOTE | 2025-03-21 11:33 | DVHINCON2 ---
ROBERT VAZQUEZ [facility] 03/21/25 1133: Date Seen: Mar 21, 2025 Referring Physician MD Chapito Reason for Consultation CHF, suspected cardiomyopathy, hx of AICD History of Present Illness This is a 60-year-old man who presented to the emergency room via EMS with a chief complaint of shortness of breath x1 week. At time of assessment, the patient was found withdrawn, very poor historian. Information obtained from records which indicate he presented with a chief complaint of progressive shortness of breath associated with chest pain and with worsening symptoms yesterday which prompted him to call 911. It is mentioned he used his home O2 with no relief of symptoms. Twelve lead electrocardiogram revealed a sinus rhythm with an associated first-degree atrioventricular block. Serial troponin levels are negative. 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 Past Medical History Past medical history reviewed. No other significant than mentioned above. Past Surgical History History of AICD implantation and explantation Status post implantable loop recorder Family History: Patient reports no known family medical history. Family History Unable to obtain family history at this time. Social History See HPI. Allergies: Coded Allergies: Aspirin (Verified Allergy, Unknown, 03/20/25) Ibuprofen (Verified Allergy, Unknown, 08/15/21) Lisinopril (Verified Allergy, Unknown, 03/20/25) Home Meds Home medications reviewed. Current Medications Current Medications Medications (Trade) Dose Ordered Sig/Maryan Route PRN Reason Start Time Stop Time Status Last Admin Sodium Chloride (Saline Lock Ns) 10 ml Q8HR IV 03/20/25 22:00 03/21/25 06:18 Ondansetron HCl (Zofran) 4 mg Q4HP PRN IV NAUSEA / VOMITING 03/20/25 17:30 Enoxaparin Sodium (Lovenox) 40 mg DAILY SC 03/21/25 10:00 03/21/25 09:36 DC Acetaminophen (Tylenol Tablet) 650 mg Q6HP PRN PO PAIN SCALE 1-3 OR TEMP>100.4 03/20/25 17:30 Morphine Sulfate 2 mg Q4HPRN PRN IV SEVERE PAIN (7-10 PAIN SCALE) 03/20/25 17:30 Nitroglycerin (Ntrostat Sublingual) 0.4 mg Q5MINP PRN SL FOR CHEST PAIN 03/20/25 17:30 Morphine Sulfate 2 mg Q30M PRN IV FOR CHEST PAIN 03/20/25 17:30 Levetiracetam (Keppra Tablet) 500 mg BID PO 03/20/25 22:00 03/21/25 01:05 Pantoprazole Sodium (Protonix Tablet) 40 mg DAILY@0600 PO 03/21/25 06:00 Amiodarone HCl (Cordarone Tablet) 200 mg Q12HR PO 03/20/25 22:00 03/21/25 01:04 Aspirin 81 mg DAILY PO 03/21/25 10:00 Losartan Potassium (Cozaar Tablet) 25 mg DAILY PO 03/21/25 10:00 03/21/25 10:04 DC Carvedilol (Coreg Tablet) 3.125 mg Q12HR PO 03/20/25 22:00 03/21/25 01:05 Atorvastatin Calcium (Lipitor) 20 mg HS PO 03/20/25 22:00 Furosemide (Lasix Injection) 40 mg DAILY IV 03/21/25 10:00 03/21/25 09:36 DC Remdesivir 0 ml @ 0 mls/hr PER PHARMACY IV 03/21/25 08:30 03/23/25 08:31 Dexamethasone Sodium Phosphate (Decadron Injection) 6 mg DAILY IV 03/21/25 08:30 Magnesium Sulfate/ Dextrose 100 ml @ 100 mls/hr Q1HR IV 03/21/25 09:00 03/21/25 10:59 UNV Remdesivir 100 mg/ Sodium Chloride 250 ml @ 250 mls/hr DAILY@1500 IV 03/22/25 15:00 03/23/25 15:59 Ceftriaxone Sodium 50 ml @ 100 mls/hr DAILY@09 IV 03/21/25 09:30 Doxycycline Hyclate 100 ml @ 50 mls/hr Q12H IV 03/21/25 09:30 Furosemide (Lasix Injection) 40 mg BID IV 03/21/25 10:00 Albuterol (Ventolin Medneb) 2.5 mg Q6HR NEB 03/21/25 12:00 Ipratropium [place] (Atrovent Medneb) 0.5 mg Q6HR NEB 03/21/25 12:00 Review of Systems Constitutional: No symptom reported Ears, Nose, & Throat: No symptom reported Eyes: No symptom reported Neurological: No symptoms reported Pulmonary/Respiratory: SOB Cardiovascular: Chest pain Gastrointestinal: No symptom reported Genitourinary: No symptom reported Musculoskeletal: No symptom reported Skin: No symptom reported Psychiatric: No symptom reported Endocrine: No symptom reported Hemotologic/Lymphatic: No symptom reported Vital Signs Vital Signs Date Time Temp Pulse Resp B/P (MAP) Pulse Ox O2 Delivery O2 Flow Rate FiO2 03/21/25 08:29 97.5 85 18 107/59 (75) 99 97.5 03/21/25 02:55 Nasal Cannula* 4 36 Physical Exam General Appearance: Withdrawn Head Exam: Normal inspection Neck Exam: Normal inspection. Normal alignment Pulmonary/Respiratory: Diminished bilateral breath sounds. On room air Cardiovascular/Chest: Regular rate and rhythm. S1, S2. Sinus rhythm. No murmurs Peripheral Pulses: 2+ Radial (R). 2+ Radial (L). 2+ Pedal (R). 2+ Pedal (L) Abdominal Exam: Normal bowel sounds. Soft. Nontender. No hepatospenomegaly. No masses Ankle Exam: Negative ankle edema Lower extremities: Negative lower extremity edema Neuro/Mental Status: Unable to assess at this time Thoughts/Psych: Unable to assess at this time Appearance: In no acute distress. Withdrawn Skin Exam: Wounds present to left foot and suture wound to left ankle area Labs/Diagnostic Data Labs Test 03/21/25 05:15 03/21/25 00:50 03/20/25 23:30 03/20/25 18:35 Range/Units White Blood Count 5.0 4.4-10.8 10^3/uL Red Blood Count 2.13 L 4.5-5.90 10^6/uL Hemoglobin 5.4 *L 13.5-17.5 g/dL Hematocrit 16.1 #L 41.0-53.0 % Mean Corpuscular Volume 75.6 L 80.0-100.0 fL Mean Corpuscular Hemoglobin 25.5 L 28.0-32.0 pg Mean Corpuscular Hemoglobin Concent 33.7 32.0-36.0 g/dL Red Cell Distribution Width 21.6 H 11.8-14.3 % Platelet Count 54 L 140-450 10^3/uL Mean Platelet Volume 9.2 6.9-10.8 fL Neutrophils (%) (Auto) 59.0 37.0-80.0 % Lymphocytes (%) (Auto) 28.9 10.0-50.0 % Monocytes (%) (Auto) 10.5 0.0-12.0 % Eosinophils (%) (Auto) 1.2 0.0-7.0 % Basophils (%) (Auto) 0.4 0.0-2.0 % Neutrophils # (Auto) 3.0 1.6-8.6 10 ^3/uL Lymphocytes # (Auto) 1.4 0.4-5.4 10 ^3/uL Monocytes # (Auto) 0.5 0-1.3 10 ^3/uL Eosinophils # (Auto) 0.1 0-0.8 10 ^3/uL Basophils # (Auto) 0 0-0.2 10 ^3/uL Nucleated Red Blood Cells 0.1 % Platelet Estimate Decreased Large Platelets Few Poikilocytosis (manual) Slight Anisocytosis (manual) Slight Microcytosis Slight Target Cells Few Ovalocytes Few Schistocytes Few Prothrombin Time 14.6 H 9.3-11.8 sec Prothrombin Time INR 1.43 H 0.9-1.15 Activated Partial Thromboplast Time 35.4 H 24.5-34.5 SEC Sodium Level 141 # 136-145 mmol/L Potassium Level 4.5 3.5-5.1 mmol/L Chloride Level 104 98-107 mmol/L Carbon Dioxide Level 27 20-31 mmol/L Anion Gap 10 5-15 Blood Urea Nitrogen 32 H 9-23 mg/dL Creatinine 1.94 H 0.700-1.30 mg/dL Glomerular Filtration Rate Calc 39 >90 mL/min BUN/Creatinine Ratio 16.5 10.0-20.0 Serum Glucose 98 74-106 mg/dL Calcium Level 8.0 L 8.7-10.4 mg/dL Total Bilirubin 2.3 H 0.2-1.0 mg/dL Aspartate Amino Transferase (AST) 117 H 13-40 U/L Alanine Aminotransferase (ALT) 23 7-40 U/L Alkaline Phosphatase 309 H 46-116 U/L Total Protein 6.0 5.7-8.2 g/dL Albumin 2.3 L 3.2-4.8 g/dL Urine Color Yellow Yellow Urine Clarity Clear Clear Urine pH 6.0 5.0-9.0 Urine Specific [place] 1.015 1.001-1.035 Urine Protein Negative Negative Urine Ketones 1+ H Negative Urine Blood Negative Negative /uL Urine Nitrite Negative Negative Urine Bilirubin Negative Negative Urine Urobilinogen Normal Negative mg/dL Urine Leukocyte Esterase Negative Negative /uL Urine RBC None seen 0 - 3 /hpf Urine Microscopic WBC < 1 0-3 /HPF Urine Squamous Epithelial Cells None seen <5 /hpf Urine Uric Acid Crystals Many None Seen /hpf Urine Bacteria None seen None Seen /hpf Urine Creatinine 131.85 H 30.0-125.0 mg/dL Urine Protein/Creatinine Ratio 0.09 Urine Sodium 11 L 40-220 mmol/L Urine Glucose Normal Normal mg/dL Urine Total Protein 12.5 1-14 mg/dL Urine Opiates Screen Neg NEGATIVE Urine Fentanyl Screen Neg NEGATIVE Urine Barbiturates Screen Neg NEGATIVE Urine Phencyclidine Screen Pos NEGATIVE Urine Amphetamines Screen Neg NEGATIVE Urine Benzodiazepines Screen Neg NEGATIVE Urine Cocaine Screen Neg NEGATIVE Urine Cannabinoids Screen Pos NEGATIVE Influenza Type A Antigen Negative Negative Influenza Type B Antigen Negative Negative SARS-CoV-2 Antigen (Rapid) Positive *A NEGATIVE Hemoglobin A1c 5.5 <5.7 % A1C Magnesium Level 1.5 L 1.6-2.6 mg/dL Direct Bilirubin 1.3 H <0.3 mg/dL Troponin I High Sensitivity 12 </=54 ng/L Plasma/Serum Blood Alcohol < 3.0 <10 mg/dL Test 03/20/25 15:19 Range/Units Hypochromasia (manual) Slight D-Dimer, Quantitative 7.38 H 0.0-0.49 mg/L FEU B-Type Natriuretic Peptide 682.54 0-100 pg/mL Triglycerides Level 59 < 150 mg/dL Cholesterol Level 90 < 200 mg/dL LDL Cholesterol 39 < 100 mg/dL HDL Cholesterol 35 L 40-59 mg/dL Thyroid Stimulating Hormone (TSH) 0.78 0.55-4.78 uIU/mL Assessment RV enlargement rule out PE Acute on chronic HF, NYHA Class IV COVID-19 Pneumonia Acute toxic encephalopathy Acute anemia/thrombocytopenia Acute kidney injury vs CKD 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 Presence of loop recorder +UDS: PCP/cannabinoids Tobacco/alcohol use Plan/Recommendation (Dr. Wooten) The patient follows up in the outpatient setting with Dr. Wooten with latest appointment on 01/2025. At that time, the patient reported a recent hospital discharge from [facility] where he was treated for endocarditis with management including explantation of AICD and HD catheter and hospital length of stay of approximately five months. Prior to this, he was last seen on 04/2023. During this admission, the patient is highly suspected for a PE with AC therapy contraindicated given acute anemia and thrombocytopenia. A VQ Scan was ordered by the primary care team. Consider an IVC filter implantation in the setting of a positive PE. Agree with blood transfusion, monitor blood levels closely. Discontinue ASA given listed allergy and blood levels. Discontinue BP medication given borderline BP. Agree with judicious preload reduction. Replete electrolytes as necessary. We will continue further cardiac evaluation with a transthoracic echocardiogram to evaluate cardiac function. Rest of plan per clinical course. Thank you for allowing us to participate in this patient's care. Please call if you have any questions or concerns. Critical care time: 40 min. This medical document was created using an electronic medical record system with voice recognition software and computerized dictation system. Although this document has been carefully reviewed, there might still be some phonetic and typographical errors. Occasional wrong-word or ``sound-alike substitutions may have occurred due to the inherent limitations of voice recognition software. These areas are purely typographical due to imperfections of the software programs and do not reflect any compromise in the patient's medical care. Please read the chart carefully and recognize, using context, where these substitutions have occurred. Plan discussed with: Other NYHA Physical activity limitations: Class4(Severe)discomfort (w any activit,symptoms at rest) Date of Service: Mar 21, 2025 Billing Provider: ROBERT VAZQUEZ Cardiology Common Codes: [id number] CARE 30-74 MIN QUIQUE WOOTEN MD 03/21/25 1336: Family History: Patient reports no known family medical history. Allergies: Coded Allergies: Aspirin (Verified Allergy, Unknown, 03/20/25) Ibuprofen (Verified Allergy, Unknown, 08/15/21) Lisinopril (Verified Allergy, Unknown, 03/20/25) Plan/Recommendation pt has seen us in office hx of severe chf ef 10% in past per notes s/p ICD placement and removal in [place] hx of drug abuse agreee with SPEECH CORRECTION ASSISTANT assessment and plan defer VTE workup to primary team obtunded severe anemia tx to icu if pt decompensates Plan discussed with: Patient VAZQUEZ,ROBERT FNP Mar 21, 2025 11:33 QUIQUE WOOTEN MD Mar 21, 2025 13:36
[2025-03-21] MEDS: ALBUTEROL SULF 2.5 MG/0.5ML(0.5%) NEB SOLN NEB SCH (12:00)
[2025-03-21] MEDS: IPRATROPIUM BROM 0.5 MG/2.5ML INH SOL NEB SCH (12:00)
[2025-03-21 12:02] LABS: Hepatitis B Surface Antigen Negative (Negative)
[2025-03-21 12:02] LABS: Iron 190.0 ug/dL (65-175)
[2025-03-21 12:06] LABS: Hematocrit 15.3 % (41.0-53.0); Mean Corpuscular Hemoglobin 25.3 pg (28.0-32.0); Mean Corpuscular Volume 76.7 fL (80.0-100.0); Nucleated Red Blood Cells % 0.2 %
[2025-03-21 12:07] LABS: Total Iron Binding Capacity 234.0 ug/dL (250-425)
[2025-03-21 12:10] LABS: Hemoglobin 5.1 g/dL (13.5-17.5)
[2025-03-21 12:22] LABS: Hepatitis C Antibody Negative (Negative)
[2025-03-21] MEDS: REMDESIVIR 200mg in NS 210mL LOADING DOSE ADULT IV ONE (13:00)
--- NOTE | 2025-03-21 13:18 | DVHSR ---
APPROVED REPORT EXAM: Two-dimensional and M-mode echocardiogram with Doppler and color Doppler. Blood Pressure: 133/74 mmHg INDICATION Heart Failure RISK FACTORS Height: 6'2", Weight: 191 DIMENSIONS LVDd5.9 (3.8-5.7cm)LA (2D)4.2 (1.9-4.0cm)Aortic Root3.1 (2.0-3.7cm) LVDs4.4 (2.5-4.0cm)LA (MM) (1.9-4.0cm)Aortic Cusp Exc2.0 (1.5-2.0cm) EF (%) 49.0 (55-70%)Rt. Atrium5.8 (1.9-4.0cm)Asc. Aorta cm IVSd0.9 (0.7-1.1cm)RV (D)4.7 (1.8-2.4cm) PWd1.1 (0.7-1.1cm) Mitral Valve MitralMitral Stenosis E wave0.83m/sMV Mean GR.mmHg A wave0.66m/sMV Peak GR.mmHg E/A ratio1.32D MVAcm2 DECEL [id number] 1/2 Timems Aortic Valve Aortic ValveAortic Stenosis V11.08m/Nils Mean GR.11mmHg V22.21m/Nils Peak GR.20mmHg LVOT Diameter2.2 (1.8-2.4cm)Doppler AVA1.86cm2 AI P 1/2 Wfrc155.18ms Pulmonic Valve V21.18m/s Tricuspid Valve TR Velocity2.44m/s [id number] Other Information Quality : Technically LimitedRhythm : Technically limited study due to patient non-stop moving and position. Conclusion lvef 35% moderate LV dysfunction RV enlarged moderate with dysfunction biatrial enlargement moderate tricsupid regurg
--- NOTE | 2025-03-21 15:16 | DVHPNRES ---
Progress Note Date Seen: Mar 21, 2025 Resident Creating Document: ELSI NORRIS RESIDENT Medical Necessity Reason Pt with a Central, PICC or Fol: No Subjective Review of Systems Patient is 60 years old male with past medical history of CHF, CKD, CVA, diabetes mellitus type 2, hypertension, seizure disorder came with a complaint of shortness of breaths. As per patient he has been having shortness of breaths for 3 days associated with the PND. Patient reported he came back [place] and started having runny nose and sneezing. Also started having shortness of breaths with the exertion and also with PND. Patient reported having sick contact with the other family members especially his aunt. Patient also endorsed left-sided chest pain for last 3 days, intermittent, sharp, could not give details. Patient denied any fever, dysuria, diarrhea. Patient reported he had hemodialysis before and also he had a defibrillator placed in chest but could not give me the exact reson. Patient reported he was [facility] for 1 and happened then followed by rehab at the same hospital for another 4 months. Patient reported he had some infection in his chest, so his defibrillator was taken off, he also had dialysis and catheter also removed due to infection. On further inquiry patient reported he was not able to walk so he was sent to rehab for almost for 4 month. Initial lab workup revealed positive for COVID-19, anemia with hemoglobin 7.7, thrombocytopenia with platelets 73, serum creatinine 2.05, BUN 23, GFR 36, D-dimer 7.38, INR 1.25, Total bilirubin 2.0, direct bilirubin 1.3, AST 110, ALT 22, alkaline phosphatase 385, troponin I 14, BNP 682, uterine creatinine 132, urine sodium 11, urine protein creatinine ratio 0.09, FENA .1%.. CXR- Increased interstital prominence. This may represent pulmonary vascular congestion and/or viral pneumonia. Doppler study negative for DVT. Echo 2D revealed LVEF 35%, moderate LV dysfunction, right ventricular enlargement moderate with a dysfunction. Biatrial enlargement. Moderate tricuspid regurgitation. PMH-CHF, CKD, CVA, diabetes mellitus type 2, hypertension, seizure disorder PSH- History of AICD implantation and explantation , Status post implantable loop recorder Allergy- aspirin, ibuprofen, lisinopril Personal History/ Social History- Smokes cigarettes less than a pack for 40 years, 1 glass per day alcohol use, marijuana abuse and methamphetamine abuse but denies other drug abuse Gastrointestinal- denies any rectal bleeding, nausea or vomiting Musculoskeletal-denies acute joint swelling or tenderness or redness Neurological- denies acute dysarthria, dysphagia, change in vision Psychiatry- denies depression or SI or HI Skin- denies acute rash or purpura Patient was seen today at bedside. Patient was not cooperative during history taking and physical examination. Details of the history and physical could not be obtained. Labs and chart reviewed. Patient on 4 L of oxygen, patient has some confusion and agitation. Patient's hemoglobin dropped down to 5.4> 5.1. Transfusion for packed red blood cell in place. Patient tested positive for COVID-19, started on remdesivir and Decadron. Patient was also started on ceftriaxone and doxycycline for secondary pneumonia. Cardiology consult reviewed and appreciated. Pending nephrology consult.Echo 2D revealed LVEF 35%, moderate LV dysfunction, right ventricular enlargement moderate with a dysfunction. Biatrial enlargement. Moderate tricuspid regurgitation. Pending gastroenterology consult for further evaluation and care Provider called of kin Bubba Rangel, [phone] , several times, called did not go through. Called patient's sister Sultana Brandt, , discussed patient's current medical condition and answered her question. Objective vital signs Vital Sign Date Time Temp Pulse Resp B/P (MAP) Pulse Ox O2 Delivery O2 Flow Rate FiO2 03/21/25 13:00 97.6 80 18 105/55 (72) 98 97.6 03/21/25 11:23 2.0 03/21/25 02:55 Nasal Cannula* 36 Total Intake and Output 03/20/25 03/20/25 03/21/25 15:00 23:00 07:00 Output Total 200 ml Balance -200 ml medications Current Medications Medications Dose Ordered Sig/Maryan Route Start Time Stop Time Status Last Admin Dose Admin Sodium Chloride 10 ml Q8HR IV 03/20/25 22:00 03/21/25 06:18 10 ML Ondansetron HCl 4 mg Q4HP PRN IV 03/20/25 17:30 Acetaminophen 650 mg Q6HP PRN PO 03/20/25 17:30 Morphine Sulfate 2 mg Q4HPRN PRN IV 03/20/25 17:30 Nitroglycerin 0.4 mg Q5MINP PRN SL 03/20/25 17:30 Morphine Sulfate 2 mg Q30M PRN IV 03/20/25 17:30 Levetiracetam 500 mg BID PO 03/20/25 22:00 03/21/25 01:05 500 MG Pantoprazole Sodium 40 mg DAILY@0600 PO 03/21/25 06:00 Amiodarone HCl 200 mg Q12HR PO 03/20/25 22:00 03/21/25 01:04 200 MG Atorvastatin Calcium 20 mg HS PO 03/20/25 22:00 Remdesivir 0 ml @ 0 mls/hr PER PHARMACY IV 03/21/25 08:30 03/23/25 08:31 Dexamethasone Sodium Phosphate 6 mg DAILY IV 03/21/25 08:30 Magnesium Sulfate/ Dextrose 100 ml @ 100 mls/hr Q1HR IV 03/21/25 09:00 03/21/25 10:59 UNV Remdesivir 100 mg/ Sodium Chloride 250 ml @ 250 mls/hr DAILY@1500 IV 03/22/25 15:00 03/23/25 15:59 Ceftriaxone Sodium 50 ml @ 100 mls/hr DAILY@09 IV 03/21/25 09:30 Doxycycline Hyclate 100 ml @ 50 mls/hr Q12H IV 03/21/25 09:30 Albuterol 2.5 mg Q6HR NEB 03/21/25 12:00 Ipratropium [place] 0.5 mg Q6HR NEB 03/21/25 12:00 Furosemide 20 mg BID IV 03/21/25 22:00 Examination General examination- awake, mild respiratory distress, agitation HEENT- PEERLA, no acute nasal discharge Cardiovascular- S1-S2 audible, rate and rhythm regular, no murmur Respiratory- bilateral lung crackles+ Gastrointestinal-nontender, bowel sound+. Nondistended Musculoskeletal-no acute joint swelling or tenderness or redness Lower extremity- bilateral leg edema+ Neurological- cranial nerves intact, no acute dysarthria or dysphagia Psychiatry- denies depression or SI or HI Skin- no acute rash or purpura laboratory and microbiology Laboratory Tests 03/21/25 10:59 03/21/25 05:15 Test 03/21/25 05:15 Range/Units Serum Glucose 98 74-106 mg/dL Problem List/Assessment/Plan Problem List/Assessment/Plan Assessment and plan- Patient was not cooperative during history taking and physical examination. Details of the history and physical could not be obtained. # acute hypoxic respiratory failure likely due to COVID pneumonia/HFpEF # rule out pulmonary embolism # acute pneumonia Gram-positive versus Gram-negative -pending ventilation perfusion mismatch study -continue remdesivir as prescribed -continue Decadron as prescribed -continue ceftriaxone IV 1 g daily -continue doxycycline 100 mg IV b.i.d. -NC O2 as per titration -monitor vitals # acute metabolic encephalopathy likely due to acute hepatic failure/hypoxic encephalopathy/pneumonia -ordered lactulose 30 mL p.o. b.i.d. -continue pantoprazole 40 mg IV b.i.d. -continue other conservative management # sepsis likely due to pneumonia -pending blood culture, respiratory culture -continue current management -ordered IV fluid -monitor vitals # acute GI bleeding #Suspected acute hepatic failure likely due to acute hepatitis/cirrhosis of liver # transaminitis -continue lactulose 30 mL p.o. b.i.d. -pantoprazole IV drip as prescribed . -pending GI consult # acute on chronic HFpEF, NYHA class 4 #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 #Presence of loop recorder # bilateral leg edema, rule out DVT/CHF -Doppler study negative for DVT -echo 2D revealed LVEF 35%, moderate LV dysfunction, right ventricular enlargement moderate with a dysfunction. Biatrial enlargement. Moderate tricuspid regurgitation. -continue Lasix 40 mg IV daily # KEKE on CKD likely due to VMN # history of CKD # severe anemia under evaluation -avoid dehydration and nephrotoxic drugs -pending nephrology consult # severe anemia # bicytopenia # thrombocytopenia under evaluation -ordered blood transfusion -monitor CBC, CMP # seizure disorder -resume home medication Keppra 500 mg p.o. b.i.d. # substance abuse- +UDS: PCP/cannabinoids #Tobacco/alcohol use -patient was counseled about the effect of substance abuse, smoking/alcoholism on health Goals of care, Code status ; discussed with >15 minutes PUD prophylaxis: SCD DVT prophylaxis: Pantoprazole Plan discussed with Dr. Ragland , nursing staff, Total time spent on patient evaluation, chart review, assessment and plan, discussion discussion >35 minutes Plan discussed with: Patient, Other (RN, sister) My Orders My Orders Orders - ELSI NORRIS RESIDENT Procedure Category Date Status Time Bilat Lower Dvt US 03/21/25 Resulted 08:01 Remdesivir Per PHA 03/21/25 In Process Pharmacy 08:30 Dexamethasone PHA 03/21/25 In Process Injection (Decadron 08:30 Hiv 1 Quant Pcr LAB 03/21/25 In Process Nongraphical 08:25 Remdesivir 100mg PHA 03/22/25 In Process ([facility]) 15:00 Pharmacy [facility] 03/21/25 In Process Clarification: 09:14 Ceftriaxone 1gm/50ml PHA 03/21/25 In Process (Rocephin) 09:30 Doxycycline PHA 03/21/25 In Process 100mg/100ml 09:30 * Cardiology Consult CONS 03/21/25 Transmitted 09:25 Albuterol Medneb PHA 03/21/25 In Process (Ventolin Medneb) 12:00 Ipratropium Medneb PHA 03/21/25 In Process (Atrovent Medneb) 12:00 *Dr. [facility] CONS 03/21/25 Transmitted -[place] 10:01 Nm Vq Scan NM 03/21/25 Logged 10:50 Blood Culture NOHEMY 03/21/25 In Process 10:54 Insert Midline ORDERS 03/21/25 Transmitted 12:03 Stool Occult Blood LAB 03/21/25 In Process 12:58 Stool Bacterial NOHEMY 03/21/25 In Process Culture 12:58 Date of Service: Mar 21, 2025 Billing Provider: MARLEN RAGLAND MD Common Visit Codes: [id number] INP/OBS CARE(HIGH) Secondary Visit Codes: [id number] CARE PLAN 30 MINUTES ELSI NORRIS RESIDENT Mar 21, 2025 15:16 MARLEN RAGLAND MD Mar 29, 2025 19:42
--- NOTE | 2025-03-21 16:43 | DVHCONRES ---
Date Seen: Mar 21, 2025 Resident Creating Document: DONNY WARD RESIDENT Referring Physician Dr. Momin Reason for Consultation Severe anemia History of Present Illness Patient is a 60-year-old male with past medical history of heart failure with reduced ejection fraction, CKD, CVA, type 2 diabetes, hypertension, seizure disorder who came in initially due to shortness of breath, and was being treated for heart failure exacerbation. GI team was consulted for severe anemia. At the time of my assessment, patient notes he has been having vomiting for the last 2 days, multiple episodes unable to quantify, notes having blood in vomitus. Patient is AO x4, however, in poor historian due to being in moderate distress. Patient also had 4 bowel movements today which were watery and black in color. Past Medical History heart failure with reduced ejection fraction, CKD, CVA, type 2 diabetes, h ypertension, seizure disorder Family History: Patient reports no known family medical history. Social History Smokin cigarettes per day for the past 15 years Alcohol: 1 pt per day for the past 40 years Drugs: Marijuana. Allergies: Coded Allergies: Aspirin (Verified Allergy, Unknown, 03/20/25) Ibuprofen (Verified Allergy, Unknown, 08/15/21) Lisinopril (Verified Allergy, Unknown, 03/20/25) Home Meds Reported Medications Cephalexin Monohydrate (Cephalexin) 500 Mg Cap, 1 CAP PO TID for 10 Days, #30 03/21/25 Hydrocodone-Acetaminophen (Hydrocodone Bitartrate/AC 10-325 mg) 1 Tab Tab, 1 TAB PO QID for 30 Days, #120 [HYDROCODONE-ACETAMINOPHEN 10-325 MG TABLET] 03/21/25 Tizanidine Hydrochloride (Tizanidine Hydrochloride) 2 Mg Tab, 1 TAB PO DAILY for 30 Days, #30 03/21/25 Sodium Bicarbonate (Sodium Bicarbonate) 650 Mg Tab, 1 TAB PO BID for 30 Days, #30 03/21/25 Bumetanide (Bumetanide) 2 Mg Tab, 1 TAB PO BID for 30 Days, #60 03/21/25 Losartan Potassium (Losartan Potassium) 25 Mg Tab, 1 TAB PO DAILY for 30 Days, #30 03/21/25 Levetiracetam (Levetiracetam) 500 Mg Tab, 1 TAB PO BID for 30 Days, #60 03/21/25 Atorvastatin Calcium (ATORVASTATIN CALCIUM) 20 Mg Tab, 1 TAB PO DAILY for 30 Days, #30 03/21/25 Gabapentin (Gabapentin) 300 Mg Cap, 1 CAP PO DAILY for 30 Days, #30 03/21/25 Discontinued Reported Medications Acetaminophen W/ Codeine (Acetaminophen/Codeine) 1 Tab Tab, 1 TAB PO QID for 30 Days, #120 03/21/25 Current Medications Current Medications Medications (Trade) Dose Ordered Sig/Maryan Route PRN Reason Start Time Stop Time Status Last Admin Sodium Chloride (Saline Lock Ns) 10 ml Q8HR IV 03/20/25 22:00 03/21/25 06:18 Ondansetron HCl (Zofran) 4 mg Q4HP PRN IV NAUSEA / VOMITING 03/20/25 17:30 Enoxaparin Sodium (Lovenox) 40 mg DAILY SC 03/21/25 10:00 03/21/25 09:36 DC Acetaminophen (Tylenol Tablet) 650 mg Q6HP PRN PO PAIN SCALE 1-3 OR TEMP>100.4 03/20/25 17:30 Morphine Sulfate 2 mg Q4HPRN PRN IV SEVERE PAIN (7-10 PAIN SCALE) 03/20/25 17:30 Nitroglycerin (Ntrostat Sublingual) 0.4 mg Q5MINP PRN SL FOR CHEST PAIN 03/20/25 17:30 Morphine Sulfate 2 mg Q30M PRN IV FOR CHEST PAIN 03/20/25 17:30 Levetiracetam (Keppra Tablet) 500 mg BID PO 03/20/25 22:00 03/21/25 01:05 Pantoprazole Sodium (Protonix Tablet) 40 mg DAILY@0600 PO 03/21/25 06:00 03/21/25 16:08 DC Amiodarone HCl (Cordarone Tablet) 200 mg Q12HR PO 03/20/25 22:00 03/21/25 01:04 Aspirin 81 mg DAILY PO 03/21/25 10:00 03/21/25 11:29 DC Losartan Potassium (Cozaar Tablet) 25 mg DAILY PO 03/21/25 10:00 03/21/25 10:04 DC Carvedilol (Coreg Tablet) 3.125 mg Q12HR PO 03/20/25 22:00 03/21/25 11:30 DC 03/21/25 01:05 Atorvastatin Calcium (Lipitor) 20 mg HS PO 03/20/25 22:00 Furosemide (Lasix Injection) 40 mg DAILY IV 03/21/25 10:00 03/21/25 09:36 DC Remdesivir 0 ml @ 0 mls/hr PER PHARMACY IV 03/21/25 08:30 03/23/25 08:31 Dexamethasone Sodium Phosphate (Decadron Injection) 6 mg DAILY IV 03/21/25 08:30 Magnesium Sulfate/ Dextrose 100 ml @ 100 mls/hr Q1HR IV 03/21/25 09:00 03/21/25 10:59 UNV Remdesivir 100 mg/ Sodium Chloride 250 ml @ 250 mls/hr DAILY@1500 IV 03/22/25 15:00 03/23/25 15:59 Ceftriaxone Sodium 50 ml @ 100 mls/hr DAILY@09 IV 03/21/25 09:30 Doxycycline Hyclate 100 ml @ 50 mls/hr Q12H IV 03/21/25 09:30 Furosemide (Lasix Injection) 40 mg BID IV 03/21/25 10:00 03/21/25 11:30 DC Albuterol (Ventolin Medneb) 2.5 mg Q6HR NEB 03/21/25 12:00 Ipratropium [place] (Atrovent Medneb) 0.5 mg Q6HR NEB 03/21/25 12:00 Furosemide (Lasix Injection) 20 mg BID IV 03/21/25 22:00 Pantoprazole Sodium (Protonix Tablet) 40 mg BID PO 03/21/25 22:00 Sucralfate (Carafate Tab) 1 gm QIDACHS PO 03/21/25 17:00 Lactulose 30 ml BID PO 03/21/25 22:00 Review of Systems General: Chills Eyes: No Pain, No Vision change, No Conjunctivae inflammation, No Eyelid inflammation, No Other, No Redness ENT: No Ear pain, No Ear discharge, No Nose pain, No Nose discharge, No Nose congestion, No Mouth pain, No Mouth swelling, No Throat pain, No Throat swelling, No Other Cardiovascular: No Chest Pain, No Palpitations, No Orthopnea, No Paroxysmal No Dyspnea, No Edema, No Lt Headedness, No Other Respiratory: Cough, No Dry, Shortness of breath, No SOB with exertion, No Wheezing, No Hemoptysis, No Pleuritic Pain, No Sputum, No Other Gastrointestinal: Nausea, Vomiting, No Abdominal Pain, Diarrhea, No Constipation, No Melena, No Hematochezia, No Other Genitourinary: No Dysuria, No Frequency, No Incontinence, No Hematuria, No Retention, No Other Musculoskeletal: No other, No neck pain, No shoulder pain, No arm pain, No back pain, No hand pain, No leg pain, No foot pain Skin: No Rash, No Lesions, No Jaundice, No Bruising, No Other Vital Signs Vital Signs Date Time Temp Pulse Resp B/P (MAP) Pulse Ox O2 Delivery O2 Flow Rate FiO2 03/21/25 14:50 97.4 83 18 99/55 97.4 03/21/25 13:00 98 03/21/25 11:23 2.0 03/21/25 02:55 Nasal Cannula* 36 Physical Exam General Appearance: Cooperative. In moderate distress Pulmonary/Respiratory: Chest non-tender. Coarse bilateral breath sounds Abdominal Exam: Normal bowel sounds. Soft. normal abdomen, no visible veins, Nontender. Neuro/Mental Status: A&O x4. Coherent. Thoughts/Psych: Normal thought pattern. Appropriate mood and affect. Good judgement and insight Skin Exam: Normal inspection. Normal color. Warm. Dry Labs/Diagnostic Data Labs Test 03/21/25 13:15 03/21/25 12:50 03/21/25 10:59 03/21/25 05:15 Range/Units Stool Occult Blood Positive Negative Stool Occult Blood Sample #3 Negative White Blood Count 4.3 L 4.4-10.8 10^3/uL Red Blood Count 2.00 L 4.5-5.90 10^6/uL Hemoglobin 5.1 *L 13.5-17.5 g/dL Hematocrit 15.3 L 41.0-53.0 % Mean Corpuscular Volume 76.7 L 80.0-100.0 fL Mean Corpuscular Hemoglobin 25.3 L 28.0-32.0 pg Mean Corpuscular Hemoglobin Concent 33.0 32.0-36.0 g/dL Red Cell Distribution Width 21.4 H 11.8-14.3 % Platelet Count 53 L 140-450 10^3/uL Mean Platelet Volume 10.0 6.9-10.8 fL Neutrophils (%) (Auto) 58.4 37.0-80.0 % Lymphocytes (%) (Auto) 28.2 10.0-50.0 % Monocytes (%) (Auto) 10.8 0.0-12.0 % Eosinophils (%) (Auto) 2.1 0.0-7.0 % Basophils (%) (Auto) 0.5 0.0-2.0 % Neutrophils # (Auto) 2.5 1.6-8.6 10 ^3/uL Lymphocytes # (Auto) 1.2 0.4-5.4 10 ^3/uL Monocytes # (Auto) 0.5 0-1.3 10 ^3/uL Eosinophils # (Auto) 0.1 0-0.8 10 ^3/uL Basophils # (Auto) 0 0-0.2 10 ^3/uL Nucleated Red Blood Cells 0.2 % Ferritin 177.3 22-322 ng/mL Hepatitis A IgM Antibody Negative Hepatitis B Surface Antigen Negative Negative Hepatitis B Core IgM Antibody Negative Negative Hepatitis C Antibody Negative Negative Platelet Estimate Decreased Large Platelets Few Poikilocytosis (manual) Slight Anisocytosis (manual) Slight Microcytosis Slight Target Cells Few Ovalocytes Few Schistocytes Few Prothrombin Time 14.6 H 9.3-11.8 sec Prothrombin Time INR 1.43 H 0.9-1.15 Activated Partial Thromboplast Time 35.4 H 24.5-34.5 SEC Sodium Level 141 # 136-145 mmol/L Potassium Level 4.5 3.5-5.1 mmol/L Chloride Level 104 98-107 mmol/L Carbon Dioxide Level 27 20-31 mmol/L Anion Gap 10 5-15 Blood Urea Nitrogen 32 H 9-23 mg/dL Creatinine 1.94 H 0.700-1.30 mg/dL Glomerular Filtration Rate Calc 39 >90 mL/min BUN/Creatinine Ratio 16.5 10.0-20.0 Serum Glucose 98 74-106 mg/dL Calcium Level 8.0 L 8.7-10.4 mg/dL Total Bilirubin 2.3 H 0.2-1.0 mg/dL Aspartate Amino Transferase (AST) 117 H 13-40 U/L Alanine Aminotransferase (ALT) 23 7-40 U/L Alkaline Phosphatase 309 H 46-116 U/L Total Protein 6.0 5.7-8.2 g/dL Albumin 2.3 L 3.2-4.8 g/dL Test 03/21/25 01:05 03/21/25 00:50 03/20/25 23:30 03/20/25 18:35 Range/Units Iron Level 190 H 65-175 ug/dL Total Iron Binding Capacity 234 L 250-425 ug/dL Percent Iron Saturation 81.2 H 20-55 % Urine Color Yellow Yellow Urine Clarity Clear Clear Urine pH 6.0 5.0-9.0 Urine Specific [place] 1.015 1.001-1.035 Urine Protein Negative Negative Urine Ketones 1+ H Negative Urine Blood Negative Negative /uL Urine Nitrite Negative Negative Urine Bilirubin Negative Negative Urine Urobilinogen Normal Negative mg/dL Urine Leukocyte Esterase Negative Negative /uL Urine RBC None seen 0 - 3 /hpf Urine Microscopic WBC < 1 0-3 /HPF Urine Squamous Epithelial Cells None seen <5 /hpf Urine Uric Acid Crystals Many None Seen /hpf Urine Bacteria None seen None Seen /hpf Urine Creatinine 131.85 H 30.0-125.0 mg/dL Urine Protein/Creatinine Ratio 0.09 Urine Sodium 11 L 40-220 mmol/L Urine Glucose Normal Normal mg/dL Urine Total Protein 12.5 1-14 mg/dL Urine Opiates Screen Neg NEGATIVE Urine Fentanyl Screen Neg NEGATIVE Urine Barbiturates Screen Neg NEGATIVE Urine Phencyclidine Screen Pos NEGATIVE Urine Amphetamines Screen Neg NEGATIVE Urine Benzodiazepines Screen Neg NEGATIVE Urine Cocaine Screen Neg NEGATIVE Urine Cannabinoids Screen Pos NEGATIVE Influenza Type A Antigen Negative Negative Influenza Type B Antigen Negative Negative SARS-CoV-2 Antigen (Rapid) Positive *A NEGATIVE Hemoglobin A1c 5.5 <5.7 % A1C Magnesium Level 1.5 L 1.6-2.6 mg/dL Direct Bilirubin 1.3 H <0.3 mg/dL Troponin I High Sensitivity 12 </=54 ng/L Plasma/Serum Blood Alcohol < 3.0 <10 mg/dL Test 03/20/25 15:19 Range/Units Hypochromasia (manual) Slight D-Dimer, Quantitative 7.38 H 0.0-0.49 mg/L FEU B-Type Natriuretic Peptide 682.54 0-100 pg/mL Triglycerides Level 59 < 150 mg/dL Cholesterol Level 90 < 200 mg/dL LDL Cholesterol 39 < 100 mg/dL HDL Cholesterol 35 L 40-59 mg/dL Thyroid Stimulating Hormone (TSH) 0.78 0.55-4.78 uIU/mL Assessment GI bleed Acute blood loss anemia due to above Heart failure with reduced ejection fraction in exacerbation COVID 19 positive Viral pneumonia Sepsis due to above Mixed shock: Hypovolemic vs septic vs cardiogenic Possible liver cirrhosis History of CVA Type 2 diabetes Seizure disorder KEKE likely hemodynamically mediated/VMN on possible CKD Plan: Patient currently unstable for endoscopy Protonix drip at 8 milligram/hour Octreotide drip Ordered another PRBC transfusion Manage conservatively until patient is stable for endoscopy We will continue to follow the patient closely Prognosis remains guarded Thank you so much for the opportunity to consult on your patient. GI team will follow the patient. In case of any questions or concerns please feel free to reach out. Plan discussed with Dr. Wong Plan discussed with: Patient, Other (RN) DONNY WARD RESIDENT Mar 21, 2025 16:43
[2025-03-21] MEDS ORDERED: NOREPINEPHRINE 8 MG/250ML KIT 250 ML IV SCH (16:45)
--- NOTE | 2025-03-21 16:58 | DVH ---
CLINICAL HISTORY: Rule out cirrhosis of liver/acute hepatitis/choledocholithia TECHNIQUE: Transabdominal sonogram was performed of the right upper quadrant. COMPARISON: None FINDINGS: The liver is coarsened liver in echogenicity and nodular in contour. There is no focal parenchymal a bnormality. No intrahepatic biliary ductal dilatation is present. The liver measures 12.1 cm. The gallbladder is normal with no evidence for stones or wall thickening. The common bile duct is normal in caliber, measuring 2 mm. The visualized pancreas is grossly unremarkable. The right kidney is normal in echogenicity and measures 9.4 cm in length. There is no evidence for hy dronephrosis or calculi. IMPRESSION: Coarsened liver echotexture and nodular Nodular liver contour, suggesting cirrhosis.
[2025-03-21] MEDS: SUCRALFATE 1 GM TAB PO SCH (17:00)
[2025-03-21] MEDS: NOREPINEPHRINE 8 MG/250ML KIT 250 ML IV SCH (19:15)
[2025-03-21 20:37] LABS: Hematocrit 18.1 % (41.0-53.0); Mean Corpuscular Hemoglobin 25.7 pg (28.0-32.0); Mean Corpuscular Volume 77.5 fL (80.0-100.0); Nucleated Red Blood Cells % 0.0 %
--- NOTE | 2025-03-21 20:37 | DVHINCON2 ---
Date of service: Mar 21, 2025 Reason for Consultation sarah History of Present Illness 60 years old man with past medical history of Congestive heart failure with reduced ejection fraction Acute kidney injury needing dialysis in the past currently off dialysis from six months, Chronic kidney disease IIIb, CVA, diabetes, hypertension, seizures presented with shortness of breath and also reports dark bloody stools he was found to have low hemoglobin needing multiple PRBC transfusions nephrology consulted for Acute kidney injury Patient is a noncompliant patient overall Surgical history- Tunneled catheter placement and removal Past Medical History As per HPI Past Surgical History As per HPI Allergies: Coded Allergies: Aspirin (Verified Allergy, Unknown, 03/20/25) Ibuprofen (Verified Allergy, Unknown, 08/15/21) Lisinopril (Verified Allergy, Unknown, 03/20/25) Home Meds Reported Medications Cephalexin Monohydrate (Cephalexin) 500 Mg Cap, 1 CAP PO TID for 10 Days, #30 03/21/25 Hydrocodone-Acetaminophen (Hydrocodone Bitartrate/AC 10-325 mg) 1 Tab Tab, 1 TAB PO QID for 30 Days, #120 [HYDROCODONE-ACETAMINOPHEN 10-325 MG TABLET] 03/21/25 Tizanidine Hydrochloride (Tizanidine Hydrochloride) 2 Mg Tab, 1 TAB PO DAILY for 30 Days, #30 03/21/25 Sodium Bicarbonate (Sodium Bicarbonate) 650 Mg Tab, 1 TAB PO BID for 30 Days, #30 03/21/25 Bumetanide (Bumetanide) 2 Mg Tab, 1 TAB PO BID for 30 Days, #60 03/21/25 Losartan Potassium (Losartan Potassium) 25 Mg Tab, 1 TAB PO DAILY for 30 Days, #30 03/21/25 Levetiracetam (Levetiracetam) 500 Mg Tab, 1 TAB PO BID for 30 Days, #60 03/21/25 Atorvastatin Calcium (ATORVASTATIN CALCIUM) 20 Mg Tab, 1 TAB PO DAILY for 30 Days, #30 03/21/25 Gabapentin (Gabapentin) 300 Mg Cap, 1 CAP PO DAILY for 30 Days, #30 03/21/25 Discontinued Reported Medications Acetaminophen W/ Codeine (Acetaminophen/Codeine) 1 Tab Tab, 1 TAB PO QID for 30 Days, #120 03/21/25 Current Medications Current Medications Medications (Trade) Dose Ordered Sig/Maryan Route PRN Reason Start Time Stop Time Status Last Admin Remdesivir 100 mg/ Sodium Chloride 250 ml @ 250 mls/hr DAILY@1500 IV 03/22/25 15:00 03/23/25 15:59 Furosemide (Lasix Injection) 20 mg BID IV 03/21/25 22:00 03/22/25 09:19 Pantoprazole Sodium (Protonix Tablet) 40 mg BID PO 03/21/25 22:00 03/22/25 09:17 Lactulose 30 ml BID PO 03/21/25 22:00 Norepinephrine Bitartrate 250 ml @ 3.75 mls/hr Q24H IV 03/21/25 19:15 03/22/25 08:27 DC Sodium Chloride 1,000 ml @ 60 mls/hr [id number] IV 03/21/25 19:15 03/22/25 11:55 Meropenem 50 ml @ 17 mls/hr Q12HR IV 03/21/25 22:00 03/22/25 09:18 Vancomycin HCl 250 ml @ 250 mls/hr ONCE STAT IV 03/21/25 19:25 03/21/25 20:24 DC 03/22/25 04:16 Magnesium Sulfate/ Dextrose 100 ml @ 100 mls/hr Q1HR IV 03/22/25 08:00 03/22/25 09:59 DC 03/22/25 09:00 Magnesium Sulfate/ Dextrose 100 ml @ 100 mls/hr Q1HR IV 03/22/25 09:00 Hold Albuterol (Ventolin Hfa) 90 mcg TID IN 03/22/25 14:00 Acetaminophen/ Hydrocodone Bitart (Descanso 5/325MG Tab) 1 tab Q4HPRN PRN PO MODERATE PAIN (4-6 PAIN SCALE) 03/22/25 08:30 Haloperidol Lactate (Haldol) 2.5 mg Q6HPRN PRN IM AGITATION 03/22/25 09:00 03/22/25 09:48 Thiamine HCl 500 mg BID IV 03/22/25 22:00 03/22/25 17:15 DC Folic Acid 1 mg/ Dextrose 50.2 ml @ 200.8 mls/ hr DAILY INJ 03/22/25 17:15 Thiamine HCl 500 mg TID IV 03/22/25 17:15 Family History: Patient reports no known family medical history. Review of Systems As mentioned in HPI otherwise negative H&P Exam Vital Signs/I&O Vital Sign Date Time Temp Pulse Resp B/P (MAP) Pulse Ox O2 Delivery O2 Flow Rate FiO2 03/22/25 15:00 99.0 89 18 106/52 (70) 100 99.0 03/22/25 10:00 Nasal Cannula 3.0 03/22/25 10:00 28 Intake and Output 03/21/25 03/22/25 19:00 07:00 Intake Total 450 ml 410 ml Output Total 200 ml 550 ml Balance 250 ml -140 ml Intake Oral 150 ml 0 ml IV Total 110 ml Blood Product 300 ml 300 ml Output Urine Total 200 ml 550 ml # Bowel Movements 5 10 Physical Exam General-not in any distress HEENT-normocephalic, no icterus, positive pallor Respiratory-fair air entry bilateral, [id number] heard, no murmurs appreciated Abdominal-soft, nontender, nondistended Musculoskeletal-no pedal edema, no calf tenderness Genitourinary-deferred Neuro-awake alert oriented x3, Psychiatric-not agitated, cooperative, Labs/Diagnostic Data Labs/Diagnostic Data Laboratory Tests Test 03/22/25 16:32 03/22/25 09:30 03/22/25 04:50 03/21/25 20:10 Range/Units POC Glucose 198 H 70-106 mg/dl White Blood Count 5.3 4.6 4.4 4.4-10.8 10^3/uL Red Blood Count 2.73 L 2.53 L 2.34 L 4.5-5.90 10^6/uL Hemoglobin 7.4 L 6.7 *L 6.0 #*L 13.5-17.5 g/dL Hematocrit 21.9 #L 19.8 L 18.1 #L 41.0-53.0 % Mean Corpuscular Volume 80.1 78.4 L 77.5 L 80.0-100.0 fL Mean Corpuscular Hemoglobin 27.2 L 26.6 L 25.7 L 28.0-32.0 pg Mean Corpuscular Hemoglobin Concent 34.0 34.0 33.1 32.0-36.0 g/dL Red Cell Distribution Width 20.0 H 20.9 H 21.9 H 11.8-14.3 % Platelet Count 56 L 55 L 53 L 140-450 10^3/uL Mean Platelet Volume 8.9 9.4 9.3 6.9-10.8 fL Neutrophils (%) (Auto) 87.4 H 89.7 H 83.2 H 37.0-80.0 % Lymphocytes (%) (Auto) 11.9 9.7 L 12.7 10.0-50.0 % Monocytes (%) (Auto) 0.6 0.6 2.3 0.0-12.0 % Eosinophils (%) (Auto) 0.0 0.0 1.4 0.0-7.0 % Basophils (%) (Auto) 0.1 0.0 0.4 0.0-2.0 % Neutrophils # (Auto) 4.7 4.2 3.7 1.6-8.6 10 ^3/uL Lymphocytes # (Auto) 0.6 0.4 0.6 0.4-5.4 10 ^3/uL Monocytes # (Auto) 0 0 0.1 0-1.3 10 ^3/uL Eosinophils # (Auto) 0 0 0.1 0-0.8 10 ^3/uL Basophils # (Auto) 0 0 0 0-0.2 10 ^3/uL Nucleated Red Blood Cells 0.1 0.2 0.0 % Prothrombin Time 12.9 H 13.1 H 9.3-11.8 sec Prothrombin Time INR 1.24 H 1.26 H 0.9-1.15 Activated Partial Thromboplast Time 35.0 H 34.9 H 24.5-34.5 SEC Sodium Level 141 143 136-145 mmol/L Potassium Level 4.1 4.3 3.5-5.1 mmol/L Chloride Level 108 H 109 H 98-107 mmol/L Carbon Dioxide Level 20 22 20-31 mmol/L Anion Gap 13 12 5-15 Blood Urea Nitrogen 28 #H 45 #H 9-23 mg/dL Creatinine 1.86 H 1.87 H 0.700-1.30 mg/dL Glomerular Filtration Rate Calc 41 41 >90 mL/min BUN/Creatinine Ratio 15.1 24.1 H 10.0-20.0 Serum Glucose 139 H 95 74-106 mg/dL Calcium Level 8.5 L 8.0 L 8.7-10.4 mg/dL Magnesium Level 1.7 1.5 L 1.6-2.6 mg/dL Total Bilirubin 2.3 H 2.3 H 0.2-1.0 mg/dL Aspartate Amino Transferase (AST) 90 H 116 H 13-40 U/L Alanine Aminotransferase (ALT) 19 26 7-40 U/L Alkaline Phosphatase 276 H 306 H 46-116 U/L Ammonia 15 23 11-32 umol/L B-Type Natriuretic Peptide 439.99 0-100 pg/mL Total Protein 6.4 5.8 5.7-8.2 g/dL Albumin 2.6 L 2.3 L 3.2-4.8 g/dL Lactic Acid Level 0.9 0.4-2.0 mmol/L Test 03/21/25 12:50 03/21/25 10:59 03/21/25 05:15 03/21/25 01:39 Range/Units Stool Occult Blood Positive Negative Stool Occult Blood Sample #3 Negative White Blood Count 4.3 L 5.0 4.4-10.8 10^3/uL Red Blood Count 2.00 L 2.13 L 4.5-5.90 10^6/uL Hemoglobin 5.1 *L 5.4 *L 6.0 #*L 13.5-17.5 g/dL Hematocrit 15.3 L 16.1 #L 18.1 #L 41.0-53.0 % Mean Corpuscular Volume 76.7 L 75.6 L 80.0-100.0 fL Mean Corpuscular Hemoglobin 25.3 L 25.5 L 28.0-32.0 pg Mean Corpuscular Hemoglobin Concent 33.0 33.7 32.0-36.0 g/dL Red Cell Distribution Width 21.4 H 21.6 H 11.8-14.3 % Platelet Count 53 L 54 L 140-450 10^3/uL Mean Platelet Volume 10.0 9.2 6.9-10.8 fL Neutrophils (%) (Auto) 58.4 59.0 37.0-80.0 % Lymphocytes (%) (Auto) 28.2 28.9 10.0-50.0 % Monocytes (%) (Auto) 10.8 10.5 0.0-12.0 % Eosinophils (%) (Auto) 2.1 1.2 0.0-7.0 % Basophils (%) (Auto) 0.5 0.4 0.0-2.0 % Neutrophils # (Auto) 2.5 3.0 1.6-8.6 10 ^3/uL Lymphocytes # (Auto) 1.2 1.4 0.4-5.4 10 ^3/uL Monocytes # (Auto) 0.5 0.5 0-1.3 10 ^3/uL Eosinophils # (Auto) 0.1 0.1 0-0.8 10 ^3/uL Basophils # (Auto) 0 0 0-0.2 10 ^3/uL Nucleated Red Blood Cells 0.2 0.1 % Ferritin 177.3 22-322 ng/mL Hepatitis A IgM Antibody Negative Hepatitis B Surface Antigen Negative Negative Hepatitis B Core IgM Antibody Negative Negative Hepatitis C Antibody Negative Negative Platelet Estimate Decreased Large Platelets Few Poikilocytosis (manual) Slight Anisocytosis (manual) Slight Microcytosis Slight Target Cells Few Ovalocytes Few Schistocytes Few Prothrombin Time 14.6 H 9.3-11.8 sec Prothrombin Time INR 1.43 H 0.9-1.15 Activated Partial Thromboplast Time 35.4 H 24.5-34.5 SEC Sodium Level 141 # 136-145 mmol/L Potassium Level 4.5 3.5-5.1 mmol/L Chloride Level 104 98-107 mmol/L Carbon Dioxide Level 27 20-31 mmol/L Anion Gap 10 5-15 Blood Urea Nitrogen 32 H 9-23 mg/dL Creatinine 1.94 H 0.700-1.30 mg/dL Glomerular Filtration Rate Calc 39 >90 mL/min BUN/Creatinine Ratio 16.5 10.0-20.0 Serum Glucose 98 74-106 mg/dL Calcium Level 8.0 L 8.7-10.4 mg/dL Total Bilirubin 2.3 H 0.2-1.0 mg/dL Aspartate Amino Transferase (AST) 117 H 13-40 U/L Alanine Aminotransferase (ALT) 23 7-40 U/L Alkaline Phosphatase 309 H 46-116 U/L Total Protein 6.0 5.7-8.2 g/dL Albumin 2.3 L 3.2-4.8 g/dL Test 03/21/25 01:05 03/21/25 00:50 03/20/25 23:30 03/20/25 18:35 Range/Units Iron Level 190 H 65-175 ug/dL Total Iron Binding Capacity 234 L 250-425 ug/dL Percent Iron Saturation 81.2 H 20-55 % Urine Color Yellow Yellow Urine Clarity Clear Clear Urine pH 6.0 5.0-9.0 Urine Specific [place] 1.015 1.001-1.035 Urine Protein Negative Negative Urine Ketones 1+ H Negative Urine Blood Negative Negative /uL Urine Nitrite Negative Negative Urine Bilirubin Negative Negative Urine Urobilinogen Normal Negative mg/dL Urine Leukocyte Esterase Negative Negative /uL Urine RBC None seen 0 - 3 /hpf Urine Microscopic WBC < 1 0-3 /HPF Urine Squamous Epithelial Cells None seen <5 /hpf Urine Uric Acid Crystals Many None Seen /hpf Urine Bacteria None seen None Seen /hpf Urine Creatinine 131.85 H 30.0-125.0 mg/dL Urine Protein/Creatinine Ratio 0.09 Urine Sodium 11 L 40-220 mmol/L Urine Glucose Normal Normal mg/dL Urine Total Protein 12.5 1-14 mg/dL Urine Opiates Screen Neg NEGATIVE Urine Fentanyl Screen Neg NEGATIVE Urine Barbiturates Screen Neg NEGATIVE Urine Phencyclidine Screen Pos NEGATIVE Urine Amphetamines Screen Neg NEGATIVE Urine Benzodiazepines Screen Neg NEGATIVE Urine Cocaine Screen Neg NEGATIVE Urine Cannabinoids Screen Pos NEGATIVE Influenza Type A Antigen Negative Negative Influenza Type B Antigen Negative Negative SARS-CoV-2 Antigen (Rapid) Positive *A NEGATIVE Hemoglobin A1c 5.5 <5.7 % A1C Magnesium Level 1.5 L 1.6-2.6 mg/dL Total Bilirubin 2.0 H 0.2-1.0 mg/dL Direct Bilirubin 1.3 H <0.3 mg/dL Aspartate Amino Transferase (AST) 110 H 13-40 U/L Alanine Aminotransferase (ALT) 22 7-40 U/L Alkaline Phosphatase 385 H 46-116 U/L Troponin I High Sensitivity 12 </=54 ng/L Total Protein 6.9 5.7-8.2 g/dL Albumin 2.6 L 3.2-4.8 g/dL Plasma/Serum Blood Alcohol < 3.0 <10 mg/dL Test 03/20/25 16:44 03/20/25 15:19 Range/Units Troponin I High Sensitivity 11 14 </=54 ng/L White Blood Count 5.3 4.4-10.8 10^3/uL Red Blood Count 3.07 L 4.5-5.90 10^6/uL Hemoglobin 7.7 L 13.5-17.5 g/dL Hematocrit 23.0 L 41.0-53.0 % Mean Corpuscular Volume 74.7 L 80.0-100.0 fL Mean Corpuscular Hemoglobin 24.9 L 28.0-32.0 pg Mean Corpuscular Hemoglobin Concent 33.3 32.0-36.0 g/dL Red Cell Distribution Width 21.3 H 11.8-14.3 % Platelet Count 73 L 140-450 10^3/uL Mean Platelet Volume 8.8 6.9-10.8 fL Neutrophils (%) (Auto) 65.4 37.0-80.0 % Lymphocytes (%) (Auto) 24.9 10.0-50.0 % Monocytes (%) (Auto) 8.8 0.0-12.0 % Eosinophils (%) (Auto) 0.6 0.0-7.0 % Basophils (%) (Auto) 0.3 0.0-2.0 % Neutrophils # (Auto) 3.4 1.6-8.6 10 ^3/uL Lymphocytes # (Auto) 1.3 0.4-5.4 10 ^3/uL Monocytes # (Auto) 0.5 0-1.3 10 ^3/uL Eosinophils # (Auto) 0 0-0.8 10 ^3/uL Basophils # (Auto) 0 0-0.2 10 ^3/uL Nucleated Red Blood Cells 0.1 % Platelet Estimate Decreased Hypochromasia (manual) Slight Poikilocytosis (manual) Slight Anisocytosis (manual) Slight Microcytosis Slight Prothrombin Time 13.0 H 9.3-11.8 sec Prothrombin Time INR 1.25 H 0.9-1.15 Activated Partial Thromboplast Time 34.6 H 24.5-34.5 SEC D-Dimer, Quantitative 7.38 H 0.0-0.49 mg/L FEU Sodium Level 135 L 136-145 mmol/L Potassium Level 3.7 3.5-5.1 mmol/L Chloride Level 99 98-107 mmol/L Carbon Dioxide Level 26 20-31 mmol/L Anion Gap 10 5-15 Blood Urea Nitrogen 23 9-23 mg/dL Creatinine 2.05 H 0.700-1.30 mg/dL Glomerular Filtration Rate Calc 36 >90 mL/min BUN/Creatinine Ratio 11.2 10.0-20.0 Serum Glucose 98 74-106 mg/dL Calcium Level 8.1 L 8.7-10.4 mg/dL B-Type Natriuretic Peptide 682.54 0-100 pg/mL Triglycerides Level 59 < 150 mg/dL Cholesterol Level 90 < 200 mg/dL LDL Cholesterol 39 < 100 mg/dL HDL Cholesterol 35 L 40-59 mg/dL Thyroid Stimulating Hormone (TSH) 0.78 0.55-4.78 uIU/mL Microbiology Date/Time Source Procedure Growth Status 03/22/25 00:12 Nose MRSA Screen - Final Complete Assessment Acute kidney injury likely hemodynamic mediated etiology in the setting of GI bleed Acute hypoxic respiratory failure COVID-19 pneumonia Acute blood loss anemia GI bleed History of Acute kidney injury needed dialysis stopped dialysis six months ago Recommendations Continue IV fluids PRBC transfusion Hypoxia likely secondary to chest x-ray findings --treat with diuretics and COVID pneumonia No DVT ,, suspicion of PE less likely--however defer CT angiogram need to primary medical team---patient is at moderate risk to develop contrast induced Acute kidney injury Treat anemia--GI following We will follow closely Plan discussed with: Patient PAM FRY MD Mar 21, 2025 20:37
[2025-03-21 20:46] LABS: Hemoglobin 6.0 g/dL (13.5-17.5)
[2025-03-21 20:49] LABS: INR 1.26 (0.9-1.15); Partial Thromboplastin Time 34.9 SEC (24.5-34.5); Prothrombin Time 13.1 sec (9.3-11.8)
[2025-03-21 21:41] LABS: Alanine Aminotransferase 26 U/L (7-40); Anion Gap 12 (5-15); BUN/Creatinine Ratio 24.1 (10.0-20.0); Carbon Dioxide 22 mmol/L (20-31); Glucose 95 mg/dL (74-106); Potassium 4.3 mmol/L (3.5-5.1); Sodium 143 mmol/L (136-145); Total Protein 5.8 g/dL (5.7-8.2)
[2025-03-21 21:43] LABS: Albumin 2.3 g/dL (3.2-4.8); Alkaline Phosphatase 306 U/L (46-116); Bilirubin, Total 2.3 mg/dL (0.2-1.0); Blood Urea Nitrogen 45 mg/dL (9-23); Calcium 8.0 mg/dL (8.7-10.4); Chloride 109 mmol/L (98-107)
[2025-03-21] MEDS: PANTOPRAZOLE 40mg/50ML NS AE 50 ML IV SCH (21:51)
[2025-03-21] MEDS: ACETAMINOPHEN 325 MG TAB PO PRN (21:59)
[2025-03-21] MEDS: FUROSEMIDE 40 MG/4 ML VIAL IV SCH (22:00)
[2025-03-21] MEDS: LACTULOSE 20Gm/30ML SOLN PO SCH (22:00)
[2025-03-21] MEDS: MEROPENEM 1GM IVPB 50 ML IV SCH (22:00)
[2025-03-21] MEDS: SODIUM CHLORIDE 0.9% 1,000 ML IV SCH (22:06)
[2025-03-22] VITALS (59 sets, daily range): BP systolic 96–149; BP diastolic 46–80; PULSE 83–101; RESP 10–26; TEMP 97.8–99; O2SAT 85–100
[2025-03-22] MEDS: ALBUMIN 25% 100 ML IV ONE (02:57)
[2025-03-22] MEDS: OCTREOTIDE ACETATE 500 MCG in SODIUM CHL 0.9% 99 ML IV SCH (03:15)
[2025-03-22] MEDS: VANCOMYCIN 1GM/250ML KIT 250 ML IV STA (04:16)
[2025-03-22] MEDS: VANCOMYCIN 1GM/250ML KIT 250 ML IV ONE (04:31)
[2025-03-22 05:26] LABS: Mean Corpuscular Hemoglobin 26.6 pg (28.0-32.0)
[2025-03-22 05:28] LABS: Hematocrit 19.8 % (41.0-53.0); Mean Corpuscular Volume 78.4 fL (80.0-100.0); Nucleated Red Blood Cells % 0.2 %
[2025-03-22 05:37] LABS: Alanine Aminotransferase 19 U/L (7-40); Anion Gap 13 (5-15); BUN/Creatinine Ratio 15.1 (10.0-20.0); Carbon Dioxide 20 mmol/L (20-31); Magnesium 1.7 mg/dL (1.6-2.6); Potassium 4.1 mmol/L (3.5-5.1); Sodium 141 mmol/L (136-145); Total Protein 6.4 g/dL (5.7-8.2)
[2025-03-22 05:45] LABS: INR 1.24 (0.9-1.15); Partial Thromboplastin Time 35.0 SEC (24.5-34.5); Prothrombin Time 12.9 sec (9.3-11.8)
[2025-03-22 05:48] LABS: Albumin 2.6 g/dL (3.2-4.8); Alkaline Phosphatase 276 U/L (46-116); Bilirubin, Total 2.3 mg/dL (0.2-1.0); Blood Urea Nitrogen 28 mg/dL (9-23); Calcium 8.5 mg/dL (8.7-10.4); Chloride 108 mmol/L (98-107); Glucose 139 mg/dL (74-106)
[2025-03-22 05:59] LABS: Hemoglobin 6.7 g/dL (13.5-17.5)
--- NOTE | 2025-03-22 08:28 | DVHPN2 ---
Consult Progress Note Date Seen: Mar 22, 2025 Subjective Other Systems: No overnight cardiac events reported Objective vital signs Vital Sign Date Time Temp Pulse Resp B/P (MAP) Pulse Ox O2 Delivery O2 Flow Rate FiO2 03/22/25 06:18 98.3 99 17 110/59 98.3 03/22/25 02:00 100 03/22/25 00:37 Nasal Cannula 2.0 03/22/25 00:37 28 Total Intake and Output 03/21/25 03/21/25 03/22/25 14:59 22:59 06:59 Intake Total 450 ml 390 ml Output Total 200 ml 550 ml Balance 250 ml -160 ml medications Current Medications Medications Dose Ordered Sig/Maryan Route Start Time Stop Time Status Last Admin Dose Admin Sodium Chloride 10 ml Q8HR IV 03/20/25 22:00 03/22/25 06:27 10 ML Ondansetron HCl 4 mg Q4HP PRN IV 03/20/25 17:30 Acetaminophen 650 mg Q6HP PRN PO 03/20/25 17:30 03/21/25 21:59 650 MG Morphine Sulfate 2 mg Q4HPRN PRN IV 03/20/25 17:30 Nitroglycerin 0.4 mg Q5MINP PRN SL 03/20/25 17:30 Levetiracetam 500 mg BID PO 03/20/25 22:00 03/21/25 22:05 500 MG Amiodarone HCl 200 mg Q12HR PO 03/20/25 22:00 03/21/25 21:58 200 MG Atorvastatin Calcium 20 mg HS PO 03/20/25 22:00 03/21/25 21:56 20 MG Remdesivir 0 ml @ 0 mls/hr PER PHARMACY IV 03/21/25 08:30 03/23/25 08:31 Dexamethasone Sodium Phosphate 6 mg DAILY IV 03/21/25 08:30 03/21/25 10:00 6 MG Magnesium Sulfate/ Dextrose 100 ml @ 100 mls/hr Q1HR IV 03/21/25 09:00 03/21/25 10:59 UNV Remdesivir 100 mg/ Sodium Chloride 250 ml @ 250 mls/hr DAILY@1500 IV 03/22/25 15:00 03/23/25 15:59 Albuterol 2.5 mg Q6HR NEB 03/21/25 12:00 03/22/25 00:37 2.5 MG Ipratropium [place] 0.5 mg Q6HR NEB 03/21/25 12:00 03/22/25 00:37 0.5 MG Furosemide 20 mg BID IV 03/21/25 22:00 03/21/25 22:00 20 MG Pantoprazole Sodium 40 mg BID PO 03/21/25 22:00 03/21/25 21:58 40 MG Sucralfate 1 gm QIDACHS PO 03/21/25 17:00 03/21/25 21:56 1 GM Lactulose 30 ml BID PO 03/21/25 22:00 Pantoprazole Sodium 50 ml @ 10 mls/hr Q5H IV 03/21/25 17:15 03/22/25 03:12 10 MLS/HR Octreotide Acetate 500 mcg/ Sodium Chloride 100 ml @ 10 mls/hr Q10H IV 03/21/25 17:15 03/22/25 04:58 10 MLS/HR Norepinephrine Bitartrate 250 ml @ 3.75 mls/hr Q24H IV 03/21/25 19:15 Sodium Chloride 1,000 ml @ 60 mls/hr [id number] IV 03/21/25 19:15 Meropenem 50 ml @ 17 mls/hr Q12HR IV 03/21/25 22:00 Magnesium Sulfate/ Dextrose 100 ml @ 100 mls/hr Q1HR IV 03/22/25 08:00 03/22/25 09:59 Examination: GENERAL:Abnormal, LUNGS:Abnormal (O2 via NC 3.5 L/min), CVS:Normal (NSR with first degree AV block. Off vasopressors), NEURO:Abnormal (A&O x 2. Uneasy, agitated) laboratory and microbiology Laboratory Tests 03/22/25 04:50 Test 03/22/25 04:50 Range/Units Serum Glucose 139 H 74-106 mg/dL Problem List/Assessment/Plan Problem List/Assessment/Plan RV enlargement rule out PE Acute on chronic decompensated HFrEF, NYHA Class IV COVID-19 Pneumonia Acute toxic encephalopathy Acute anemia/thrombocytopenia with +FOBT Acute kidney injury vs CKD 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 Presence of loop recorder +UDS: PCP/cannabinoids Tobacco/alcohol use Plan/Recommendation (Dr. Hutchins) The patient follows up in the outpatient setting with Dr. Hutchins with latest appointment on 01/2025. At that time, the patient reported a recent hospital discharge from [facility] where he was treated for endocarditis with management including explantation of AICD and HD catheter and a hospital length of stay of approximately five months. Prior to this, he was last seen on 04/2023. The patient underwent a transthoracic echocardiogram revealing a LVEF of 35% with RV enlargement and moderate LV dysfunction. Highly suspected for a PE, continue VQ Scan. AC therapy contraindicated given acute anemia, thrombocytopenia, and +FOBT. Consider an IVC filter implantation in the setting of a positive PE. Agree with blood transfusion, monitor blood levels closely. Initiate GDMT for CHF as BP and renal function can tolerate. Agree with judicious preload reduction. Replete electrolytes as necessary. Kindly call if in need to re-consult. Thank you for allowing us to participate in this patient's care. Critical care time: 30 min. This medical document was created using an electronic medical record system with voice recognition software and computerized dictation system. Although this document has been carefully reviewed, there might still be some phonetic and typographical errors. Occasional wrong-word or ``sound-alike substitutions may have occurred due to the inherent limitations of voice recognition software. These areas are purely typographical due to imperfections of the software programs and do not reflect any compromise in the patient's medical care. Please read the chart carefully and recognize, using context, where these substitutions have occurred. Plan discussed with: Patient, Other Date of Service: Mar 22, 2025 Billing Provider: ROBERT VAZQUEZ Cardiology Common Codes: 10101-[id number] CARE 30-74 MIN ROBERT VAZQUEZ Mar 22, 2025 08:28
--- NOTE | 2025-03-22 08:39 | DVH ---
CHEST RADIOGRAPH Indication: PNA/CHF Technique: Single frontal view of the chest was obtained Comparison: XY CHEST PORTABLE on DOS: 03/20/25, XR CHEST 1 VIEW on DOS: 01/19/23, XR CHEST 1 VIEW on DO S: 01/15/23, CHEST PORTABLE on DOS: 08/15/21, XY CHEST PORTABLE on DOS: 03/20/25 FINDINGS: Lines and Tubes: None Lungs: Congestion Pleura: No effusion. No pneumothorax. Cardiomediastinal contours: Cardiomegaly Bones: Unremarkable IMPRESSION: 1. Increased interstital prominence. This may represent pulmonary vascular congestion and/or viral pn eumonia. Clinical correlation advised.
[2025-03-22] MEDS: MAGNESIUM SULFATE 1GM/100ML 100 ML IV SCH ×2 (09:00)
[2025-03-22] MEDS: MORPHINE SULFATE INJ 2 MG/ml SYRG IV PRN (09:26)
[2025-03-22] MEDS: HALOPERIDOL LACTATE 5 MG/ML INJ VIAL IM PRN (09:48)
[2025-03-22 10:25] LABS: Hemoglobin 7.4 g/dL (13.5-17.5); Nucleated Red Blood Cells % 0.1 %
[2025-03-22 10:26] LABS: Hematocrit 21.9 % (41.0-53.0); Mean Corpuscular Hemoglobin 27.2 pg (28.0-32.0); Mean Corpuscular Volume 80.1 fL (80.0-100.0)
--- NOTE | 2025-03-22 11:05 | CONS ---
Pharmacy Clinical Information: From Heart Failure Fallout Report on CQM Application, ClaireStephan, 60M with PMH of CHF, CKD, CVA, T2DM, HTN, and seizure His home medications for heart failure include losartan 25mg only Due to his inpatient blood pressure being constantly low (average 100/60) while only on the lowest dose of losartan, other GDMT medications such as beta- tin, MRA, and SGLT2 inhibitor should be initiated once blood pressure can tolerate KEVON THOMPSON [facility] RESIDENT Mar 22, 2025 11:05
--- NOTE | 2025-03-22 12:04 | DVHPNRES ---
Progress Note Date Seen: Mar 22, 2025 Resident Creating Document: ELSI NORRIS RESIDENT Medical Necessity Reason Pt with a Central, PICC or Fol: Yes Subjective Review of Systems Patient is 60 years old male with past medical history of CHF, CKD, CVA, diabetes mellitus type 2, hypertension, seizure disorder came with a complaint of shortness of breaths. As per patient he has been having shortness of breaths for 3 days associated with the PND. Patient reported he came back [place] and started having runny nose and sneezing. Also started having shortness of breaths with the exertion and also with PND. Patient reported having sick contact with the other family members especially his aunt. Patient also endorsed left-sided chest pain for last 3 days, intermittent, sharp, could not give details. Patient denied any fever, dysuria, diarrhea. Patient reported he had hemodialysis before and also he had a defibrillator placed in chest but could not give me the exact reson. Patient reported he was [facility] for 1 and happened then followed by rehab at the same hospital for another 4 months. Patient reported he had some infection in his chest, so his defibrillator was taken off, he also had dialysis and catheter also removed due to infection. On further inquiry patient reported he was not able to walk so he was sent to rehab for almost for 4 month. Initial lab workup revealed positive for COVID-19, anemia with hemoglobin 7.7, thrombocytopenia with platelets 73, serum creatinine 2.05, BUN 23, GFR 36, D-dimer 7.38, INR 1.25, Total bilirubin 2.0, direct bilirubin 1.3, AST 110, ALT 22, alkaline phosphatase 385, troponin I 14, BNP 682, uterine creatinine 132, urine sodium 11, urine protein creatinine ratio 0.09, FENA .1%.. CXR- Increased interstital prominence. This may represent pulmonary vascular congestion and/or viral pneumonia. Doppler study negative for DVT. Echo 2D revealed LVEF 35%, moderate LV dysfunction, right ventricular enlargement moderate with a dysfunction. Biatrial enlargement. Moderate tricuspid regurgitation. PMH-CHF, CKD, CVA, diabetes mellitus type 2, hypertension, seizure disorder PSH- History of AICD implantation and explantation , Status post implantable loop recorder Allergy- aspirin, ibuprofen, lisinopril Personal History/ Social History- Smokes cigarettes less than a pack for 40 years, 1 glass per day alcohol use, marijuana abuse and methamphetamine abuse but denies other drug abuse Gastrointestinal- denies any rectal bleeding, nausea or vomiting Musculoskeletal-denies acute joint swelling or tenderness or redness Neurological- denies acute dysarthria, dysphagia, change in vision Psychiatry- denies depression or SI or HI Skin- denies acute rash or purpura Patient was seen today at bedside. Labs and chart reviewed. Patient had 3 units of blood so far. Patient is agitated. 9 Emanuel from left leg was removed without any complication. Patient is getting 4th unit of blood transfusion due to due to active bleeding, with a history of hypotension, with altered mental status. Plan is to follow up with the CBC, CMP, PT INR. Patient is seen by Gastroenterology, recommendation reviewed and appreciated. Cardiology recommendation reviewed and appreciated. Pending V/Q scan to rule out pulmonary embolism. Called patient's sister Sultana Brandt, , discussed patient's current medical condition and answered her question. Objective vital signs Vital Sign Date Time Temp Pulse Resp B/P (MAP) Pulse Ox O2 Delivery O2 Flow Rate FiO2 03/22/25 09:26 100 22 151/81 03/22/25 06:18 98.3 98.3 03/22/25 02:00 100 03/22/25 00:37 Nasal Cannula 2.0 03/22/25 00:37 28 Total Intake and Output 03/21/25 03/21/25 03/22/25 15:00 23:00 07:00 Intake Total 450 ml 390 ml Output Total 200 ml 550 ml Balance 250 ml -160 ml medications Current Medications Medications Dose Ordered Sig/Maryan Route Start Time Stop Time Status Last Admin Dose Admin Sodium Chloride 10 ml Q8HR IV 03/20/25 22:00 03/22/25 06:27 10 ML Ondansetron HCl 4 mg Q4HP PRN IV 03/20/25 17:30 Acetaminophen 650 mg Q6HP PRN PO 03/20/25 17:30 03/21/25 21:59 650 MG Morphine Sulfate 2 mg Q4HPRN PRN IV 03/20/25 17:30 03/22/25 09:26 2 MG Nitroglycerin 0.4 mg Q5MINP PRN SL 03/20/25 17:30 Levetiracetam 500 mg BID PO 03/20/25 22:00 03/22/25 09:18 500 MG Amiodarone HCl 200 mg Q12HR PO 03/20/25 22:00 03/22/25 09:18 200 MG Atorvastatin Calcium 20 mg HS PO 03/20/25 22:00 03/21/25 21:56 20 MG Remdesivir 0 ml @ 0 mls/hr PER PHARMACY IV 03/21/25 08:30 03/23/25 08:31 Dexamethasone Sodium Phosphate 6 mg DAILY IV 03/21/25 08:30 03/22/25 09:19 6 MG Magnesium Sulfate/ Dextrose 100 ml @ 100 mls/hr Q1HR IV 03/21/25 09:00 03/21/25 10:59 UNV Remdesivir 100 mg/ Sodium Chloride 250 ml @ 250 mls/hr DAILY@1500 IV 03/22/25 15:00 03/23/25 15:59 Furosemide 20 mg BID IV 03/21/25 22:00 03/22/25 09:19 20 MG Pantoprazole Sodium 40 mg BID PO 03/21/25 22:00 03/22/25 09:17 40 MG Sucralfate 1 gm QIDACHS PO 03/21/25 17:00 03/21/25 21:56 1 GM Lactulose 30 ml BID PO 03/21/25 22:00 Pantoprazole Sodium 50 ml @ 10 mls/hr Q5H IV 03/21/25 17:15 03/22/25 09:20 10 MLS/HR Octreotide Acetate 500 mcg/ Sodium Chloride 100 ml @ 10 mls/hr Q10H IV 03/21/25 17:15 03/22/25 04:58 10 MLS/HR Sodium Chloride 1,000 ml @ 60 mls/hr [id number] IV 03/21/25 19:15 Meropenem 50 ml @ 17 mls/hr Q12HR IV 03/21/25 22:00 03/22/25 09:18 17 MLS/HR Magnesium Sulfate/ Dextrose 100 ml @ 100 mls/hr Q1HR IV 03/22/25 09:00 Hold Albuterol 90 mcg TID IN 03/22/25 14:00 Acetaminophen/ Hydrocodone Bitart 1 tab Q4HPRN PRN PO 03/22/25 08:30 Haloperidol Lactate 2.5 mg Q6HPRN PRN IM 03/22/25 09:00 03/22/25 09:48 2.5 MG Examination General examination- awake, mild respiratory distress, agitation HEENT- PEERLA, no acute nasal discharge Cardiovascular- S1-S2 audible, rate and rhythm regular, no murmur Respiratory- bilateral lung crackles+ Gastrointestinal-nontender, bowel sound+. Nondistended Musculoskeletal-no acute joint swelling or tenderness or redness Lower extremity- bilateral leg edema+ Neurological- cranial nerves intact, no acute dysarthria or dysphagia Psychiatry- denies depression or SI or HI Skin- no acute rash or purpura laboratory and microbiology Laboratory Tests 03/22/25 09:30 03/22/25 04:50 Test 03/22/25 04:50 Range/Units Serum Glucose 139 H 74-106 mg/dL Microbiology Date/Time Source Procedure Growth Status 03/21/25 12:50 Stool Stool Culture - Preliminary Resulted 03/21/25 12:50 Stool Shiga Toxin I & II Pending Resulted Problem List/Assessment/Plan Problem List/Assessment/Plan Assessment and plan- Patient was not cooperative during history taking and physical examination. Details of the history and physical could not be obtained. # acute hypoxic respiratory failure likely due to COVID pneumonia/HFpEF # rule out pulmonary embolism # acute pneumonia Gram-positive versus Gram-negative -pending ventilation perfusion mismatch study -continue remdesivir as prescribed -continue Decadron as prescribed -continue ceftriaxone IV 1 g daily -continue doxycycline 100 mg IV b.i.d. -NC O2 as per titration -monitor vitals # acute metabolic encephalopathy likely due to acute hepatic failure/hypoxic encephalopathy/pneumonia # suspected Wernicke encephalopathy - lactulose 30 mL p.o. b.i.d. -continue pantoprazole IV drip -started thiamine 500 mg IV b.i.d. for 2 days -started on folic acid -continue other conservative management # septic shock likely due to pneumonia -blood culture no growth so far -continue methamphetamine vancomycin as prescribed -monitor vitals # acute GI bleeding #Suspected acute hepatic failure likely due to acute hepatitis/cirrhosis of liver # transaminitis -continue lactulose 30 mL p.o. b.i.d. -pantoprazole IV drip as prescribed . 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 Biatrial enlargement. Moderate tricuspid regurgitation. -continue Lasix 40 mg IV daily # KEKE on CKD likely due to VMN # history of CKD # severe anemia under evaluation -avoid dehydration and nephrotoxic drugs - Nephrology recommendation reviewed and appreciated # severe anemia # bicytopenia # thrombocytopenia under evaluation -ordered blood transfusion -monitor CBC, CMP # seizure disorder -resume home medication Keppra 500 mg p.o. b.i.d. # substance abuse- +UDS: PCP/cannabinoids #Tobacco/alcohol use -patient was counseled about the effect of substance abuse, smoking/alcoholism on health Goals of care, Code status ; discussed with >15 minutes PUD prophylaxis: SCD DVT prophylaxis: Pantoprazole Plan discussed with Dr. Ragland , nursing staff, Total time spent on patient evaluation, chart review, assessment and plan, discussion discussion >75 minutes Plan discussed with: Patient, Other (RN,sister ) My Orders My Orders Orders - ELSI NORRIS RESIDENT Procedure Category Date Status Time Insert Midline ORDERS 03/21/25 Transmitted 12:03 Stool Bacterial NOHEMY 03/21/25 In Process Culture 12:58 * Gi Dvh Lace Weaver CONS 03/21/25 Transmitted 15:56 Pantoprazole Tablet PHA 03/21/25 In Process (Protonix Tablet) 22:00 LIVER US 03/21/25 Resulted 16:07 Sucralfate Tab PHA 03/21/25 In Process (Carafate Tab) 17:00 Lactulose Oral PHA 03/21/25 In Process 22:00 Transfer Orders XFER 03/21/25 Transmitted 16:38 Transfer Orders XFER 03/21/25 Transmitted 16:49 Communication Order ORDERS 03/21/25 Transmitted 16:51 Communication Order ORDERS 03/21/25 Transmitted 18:11 Transfer Orders XFER 03/21/25 Transmitted 19:04 Communication Order ORDERS 03/21/25 Transmitted 19:06 Sodium Chloride 0.9% PHA 03/21/25 In Process 19:15 Meropenem 1gm Ivpb PHA 03/21/25 In Process (Merrem 1gm/50ml) 22:00 Vancomycin Per YURI 03/21/25 In Process Pharmacy Protoc 19:31 * Wound Consult CONS 03/21/25 Transmitted 23:21 * Dietary Consult CONS 03/21/25 Transmitted 23:21 Mrsa Screen NOHEMY 03/22/25 In Process 00:12 Chest Xray 1 View XY 03/22/25 Resulted 07:00 Albuterol Inhaler PHA 03/22/25 In Process (Ventolin Hfa) 14:00 Communication Order ORDERS 03/22/25 Transmitted 10:54 Dietary Evaluation Review Comments: 1. Tube feeding if EN/GI accessible. Glucerna @60ml/hr (1728kcal 86g Protein 1159ml free water) meeting 100% protein needs and 80% energy needs, 2. F/U with nephrology and GI consults and updated lab values 3. CCHO-60 Cardiac diet when medically feasible and passing CORNER CUTTER eval. Expected Outcomes/Goals: controlled DM, maintain wt, Date of Service: Mar 22, 2025 Billing Provider: AMRLEN RAGLAND MD Common Visit Codes: [id number] INP/OBS CARE(HIGH) ELSI NORRIS RESIDENT Mar 22, 2025 12:04 MARLEN RAGLAND MD Mar 29, 2025 19:44
--- NOTE | 2025-03-22 12:16 | DVHPN2 ---
Progress Note Date Seen: Mar 22, 2025 Resident Creating Document: DONNY WARD RESIDENT Medical Necessity Reason Pt with a Central, PICC or Fol: Yes Subjective Review of Systems Patient seen and examined at bedside No further vomiting One loose brown BM in the past 24 hours Patient not cooperative at the time of my assessment, somewhat altered. Objective vital signs Vital Sign Date Time Temp Pulse Resp B/P (MAP) Pulse Ox O2 Delivery O2 Flow Rate FiO2 03/22/25 09:26 100 22 151/81 03/22/25 06:18 98.3 98.3 03/22/25 02:00 100 03/22/25 00:37 Nasal Cannula 2.0 03/22/25 00:37 28 Total Intake and Output 03/21/25 03/21/25 03/22/25 15:00 23:00 07:00 Intake Total 450 ml 390 ml Output Total 200 ml 550 ml Balance 250 ml -160 ml medications Current Medications Medications Dose Ordered Sig/Maryan Route Start Time Stop Time Status Last Admin Dose Admin Sodium Chloride 10 ml Q8HR IV 03/20/25 22:00 03/22/25 06:27 10 ML Ondansetron HCl 4 mg Q4HP PRN IV 03/20/25 17:30 Acetaminophen 650 mg Q6HP PRN PO 03/20/25 17:30 03/21/25 21:59 650 MG Morphine Sulfate 2 mg Q4HPRN PRN IV 03/20/25 17:30 03/22/25 09:26 2 MG Nitroglycerin 0.4 mg Q5MINP PRN SL 03/20/25 17:30 Levetiracetam 500 mg BID PO 03/20/25 22:00 03/22/25 09:18 500 MG Amiodarone HCl 200 mg Q12HR PO 03/20/25 22:00 03/22/25 09:18 200 MG Atorvastatin Calcium 20 mg HS PO 03/20/25 22:00 03/21/25 21:56 20 MG Remdesivir 0 ml @ 0 mls/hr PER PHARMACY IV 03/21/25 08:30 03/23/25 08:31 Dexamethasone Sodium Phosphate 6 mg DAILY IV 03/21/25 08:30 03/22/25 09:19 6 MG Magnesium Sulfate/ Dextrose 100 ml @ 100 mls/hr Q1HR IV 03/21/25 09:00 03/21/25 10:59 UNV Remdesivir 100 mg/ Sodium Chloride 250 ml @ 250 mls/hr DAILY@1500 IV 03/22/25 15:00 03/23/25 15:59 Furosemide 20 mg BID IV 03/21/25 22:00 03/22/25 09:19 20 MG Pantoprazole Sodium 40 mg BID PO 03/21/25 22:00 03/22/25 09:17 40 MG Sucralfate 1 gm QIDACHS PO 03/21/25 17:00 03/21/25 21:56 1 GM Lactulose 30 ml BID PO 03/21/25 22:00 Pantoprazole Sodium 50 ml @ 10 mls/hr Q5H IV 03/21/25 17:15 03/22/25 09:20 10 MLS/HR Octreotide Acetate 500 mcg/ Sodium Chloride 100 ml @ 10 mls/hr Q10H IV 03/21/25 17:15 03/22/25 04:58 10 MLS/HR Sodium Chloride 1,000 ml @ 60 mls/hr [id number] IV 03/21/25 19:15 Meropenem 50 ml @ 17 mls/hr Q12HR IV 03/21/25 22:00 03/22/25 09:18 17 MLS/HR Magnesium Sulfate/ Dextrose 100 ml @ 100 mls/hr Q1HR IV 03/22/25 09:00 Hold Albuterol 90 mcg TID IN 03/22/25 14:00 Acetaminophen/ Hydrocodone Bitart 1 tab Q4HPRN PRN PO 03/22/25 08:30 Haloperidol Lactate 2.5 mg Q6HPRN PRN IM 03/22/25 09:00 03/22/25 09:48 2.5 MG Examination General Appearance: Cooperative. In moderate distress Pulmonary/Respiratory: Chest non-tender. Coarse bilateral breath sounds Abdominal Exam: Normal bowel sounds. Soft. normal abdomen, no visible veins, Nontender. Neuro/Mental Status: A&O x4. Coherent. Thoughts/Psych: Normal thought pattern. Appropriate mood and affect. Good judgement and insight Skin Exam: Normal inspection. Normal color. Warm. Dry laboratory and microbiology Laboratory Tests 03/22/25 09:30 03/22/25 04:50 Test 03/22/25 04:50 Range/Units Serum Glucose 139 H 74-106 mg/dL Microbiology Date/Time Source Procedure Growth Status 03/21/25 12:50 Stool Stool Culture - Preliminary Resulted 03/21/25 12:50 Stool Shiga Toxin I & II Pending Resulted Labs and/or images reviewed: Labs reviewed by me, Image(s) reviewed by me Problem List/Assessment/Plan Problem List/Assessment/Plan GI bleed Acute blood loss anemia due to above Heart failure with reduced ejection fraction in exacerbation COVID 19 positive Viral pneumonia Sepsis due to above Mixed shock: Hypovolemic vs septic vs cardiogenic Possible liver cirrhosis History of CVA Type 2 diabetes Seizure disorder KEKE likely hemodynamically mediated/VMN on possible CKD Plan: No signs of active GI bleed Protonix drip at 8 milligram/hour Octreotide drip Ordered another PRBC transfusion Manage conservatively until patient is stable for endoscopy We will continue to follow the patient closely Prognosis remains guarded Outpatient follow up with GI recommended Thank you so much for the opportunity to consult on your patient. GI team will follow the patient. In case of any questions or concerns please feel free to reach out. Plan discussed with Dr. Wong Plan discussed with: Other (RN) My Orders My Orders Orders - DONNY WARD RESIDENT Procedure Category Date Status Time Pantoprazole PHA 03/21/25 In Process 40mg/50ml Ns Ae 17:15 Sodium Chl 0.9% PHA 03/21/25 In Process (So... W/Octreotide 17:15 Npo Except Ice Chips YURI 03/21/25 In Process 17:01 Npo (Nothing By DIET 03/21/25 Transmitted Mouth) Diet Dinner Dietary Evaluation Review Comments: 1. Tube feeding if EN/GI accessible. Glucerna @60ml/hr (1728kcal 86g Protein 1159ml free water) meeting 100% protein needs and 80% energy needs, 2. F/U with nephrology and GI consults and updated lab values 3. CCHO-60 Cardiac diet when medically feasible and passing AIRCRAFT MECHANIC ELECTRICAL AND RADIO eval. Expected Outcomes/Goals: controlled DM, maintain wt, DONNY WARD RESIDENT Mar 22, 2025 12:16
[2025-03-22] MEDS: REMDESIVIR 100mg in NS 230mL (3 DAY REGIMEN) IV SCH (18:05)
--- NOTE | 2025-03-22 18:20 | DVHPN2 ---
Progress Note Date Seen: Mar 22, 2025 Medical Necessity Reason Pt with a Central, PICC or Fol: Yes Subjective Patient reports: Other (Upgraded to ICU) Review of Systems: Deferred Objective vital signs Vital Sign Date Time Temp Pulse Resp B/P (MAP) Pulse Ox O2 Delivery O2 Flow Rate FiO2 03/22/25 15:00 99.0 89 18 106/52 (70) 100 99.0 03/22/25 10:00 Nasal Cannula 3.0 03/22/25 10:00 28 Total Intake and Output 03/21/25 03/21/25 03/22/25 15:00 23:00 07:00 Intake Total 450 ml 410 ml Output Total 200 ml 550 ml Balance 250 ml -140 ml medications Current Medications Medications Dose Ordered Sig/Maryan Route Start Time Stop Time Status Last Admin Dose Admin Sodium Chloride 10 ml Q8HR IV 03/20/25 22:00 03/22/25 14:00 10 ML Ondansetron HCl 4 mg Q4HP PRN IV 03/20/25 17:30 Acetaminophen 650 mg Q6HP PRN PO 03/20/25 17:30 03/21/25 21:59 650 MG Morphine Sulfate 2 mg Q4HPRN PRN IV 03/20/25 17:30 03/22/25 09:26 2 MG Nitroglycerin 0.4 mg Q5MINP PRN SL 03/20/25 17:30 Levetiracetam 500 mg BID PO 03/20/25 22:00 03/22/25 09:18 500 MG Amiodarone HCl 200 mg Q12HR PO 03/20/25 22:00 03/22/25 09:18 200 MG Atorvastatin Calcium 20 mg HS PO 03/20/25 22:00 03/21/25 21:56 20 MG Remdesivir 0 ml @ 0 mls/hr PER PHARMACY IV 03/21/25 08:30 03/23/25 08:31 Dexamethasone Sodium Phosphate 6 mg DAILY IV 03/21/25 08:30 03/22/25 09:19 6 MG Magnesium Sulfate/ Dextrose 100 ml @ 100 mls/hr Q1HR IV 03/21/25 09:00 03/21/25 10:59 UNV Remdesivir 100 mg/ Sodium Chloride 250 ml @ 250 mls/hr DAILY@1500 IV 03/22/25 15:00 03/23/25 15:59 Pantoprazole Sodium 40 mg BID PO 03/21/25 22:00 03/22/25 09:17 40 MG Sucralfate 1 gm QIDACHS PO 03/21/25 17:00 03/22/25 16:27 1 GM Lactulose 30 ml BID PO 03/21/25 22:00 Pantoprazole Sodium 50 ml @ 10 mls/hr Q5H IV 03/21/25 17:15 03/22/25 16:28 10 MLS/HR Octreotide Acetate 500 mcg/ Sodium Chloride 100 ml @ 10 mls/hr Q10H IV 03/21/25 17:15 03/22/25 13:15 10 MLS/HR Meropenem 50 ml @ 17 mls/hr Q12HR IV 03/21/25 22:00 03/22/25 09:18 17 MLS/HR Magnesium Sulfate/ Dextrose 100 ml @ 100 mls/hr Q1HR IV 03/22/25 09:00 Hold Albuterol 90 mcg TID IN 03/22/25 14:00 Acetaminophen/ Hydrocodone Bitart 1 tab Q4HPRN PRN PO 03/22/25 08:30 Haloperidol Lactate 2.5 mg Q6HPRN PRN IM 03/22/25 09:00 03/22/25 09:48 2.5 MG Folic Acid 1 mg/ Dextrose 50.2 ml @ 200.8 mls/ hr DAILY INJ 03/22/25 17:15 Thiamine HCl 500 mg TID IV 03/22/25 17:15 Furosemide 40 mg BID IV 03/22/25 22:00 laboratory and microbiology Laboratory Tests 03/22/25 04:50 Test 03/22/25 04:50 Range/Units Serum Glucose 139 H 74-106 mg/dL Microbiology Date/Time Source Procedure Growth Status 03/22/25 00:12 Nose MRSA Screen - Final Complete 03/21/25 13:15 Blood Blood Culture - Preliminary NO GROWTH AFTER 24 HOURS OF INCUBATION. Resulted 03/21/25 12:50 Stool Stool Culture - Preliminary Resulted 03/21/25 12:50 Stool Shiga Toxin I & II - Final Resulted Problem List/Assessment/Plan Problem List/Assessment/Plan Acute kidney injury likely hemodynamic mediated etiology in the setting of GI bleed Acute hypoxic respiratory failure COVID-19 pneumonia Acute blood loss anemia GI bleed History of Acute kidney injury needed dialysis stopped dialysis six months ago Recommendations dc IV fluids, Lasix IV b.i.d. as chest x-ray worse PRBC transfusion--4 units PRBC Hypoxia likely secondary to chest x-ray findings --treat with diuretics and COVID pneumonia No DVT ,, suspicion of PE less likely--however defer CT angiogram need to primary medical team---patient is at moderate risk to develop contrast induced Acute kidney injury-- Six months ago patient needed dialysis and several tunneled catheters were placed---given high-risk for acute kidney injury consider central line instead of a PICC line to preserve vasculature for future---patient is not on any vasopressors Treat anemia--GI following We will follow closely Plan discussed with: Patient My Orders My Orders Orders - PAM FRY MD Procedure Category Date Status Time Furosemide Injection PHA 03/22/25 In Process (Lasix Injection) 22:00 Dietary Evaluation Review Comments: 1. Tube feeding if EN/GI accessible. Glucerna @60ml/hr (1728kcal 86g Protein 1159ml free water) meeting 100% protein needs and 80% energy needs, 2. F/U with nephrology and GI consults and updated lab values 3. CCHO-60 Cardiac diet when medically feasible and passing CIVIL STRUCTURAL ENGINEER eval. Expected Outcomes/Goals: controlled DM, maintain wt, PAM FRY MD Mar 22, 2025 18:20
[2025-03-22 18:30] LABS: Hematocrit 25.5 % (41.0-53.0); Hemoglobin 8.4 g/dL (13.5-17.5); Mean Corpuscular Hemoglobin 26.9 pg (28.0-32.0); Mean Corpuscular Volume 81.6 fL (80.0-100.0); Nucleated Red Blood Cells % 0.1 %
[2025-03-22] MEDS: THIAMINE 100mg/ml INJ (200mg/2ml VIAL) IV SCH (18:31)
[2025-03-22] MEDS ORDERED: DEXTROSE (50%) 50ML SYRG IV PRN (20:00)
[2025-03-22] MEDS: FOLIC ACID 1 MG in D5W 5% 50 ML INJ SCH (21:00)
[2025-03-22] MEDS: FUROSEMIDE 40 MG/4 ML VIAL IV SCH (21:21)
[2025-03-22] MEDS: HYDROcodone-ACET 5/325MG TAB PO PRN (21:35)
[2025-03-22] MEDS: InsuLIN REG 1unit/0.01ml Soln (100units/ml) SC SCH (21:53)
[2025-03-22] MEDS ORDERED: THIAMINE 100mg/ml INJ (200mg/2ml VIAL) IV SCH (22:00)
[2025-03-22] MEDS: ACCU-CHEK COMFORT CURVE STRIP VI SCH (22:00)
[2025-03-22] MEDS: ALBUTEROL SULF HFA 90MCG INH 200DOSE IN SCH (22:11)
[2025-03-23] VITALS (11 sets, daily range): BP systolic 118–138; BP diastolic 73–85; PULSE 80–93; RESP 14–20; TEMP 97.7–98.4; O2SAT 95–100
[2025-03-23 06:09] LABS: Hematocrit 24.5 % (41.0-53.0); Hemoglobin 8.2 g/dL (13.5-17.5); Mean Corpuscular Hemoglobin 27.1 pg (28.0-32.0); Mean Corpuscular Volume 80.9 fL (80.0-100.0); Nucleated Red Blood Cells % 0.0 %
[2025-03-23 06:30] LABS: INR 1.25 (0.9-1.15); Partial Thromboplastin Time 33.7 SEC (24.5-34.5); Prothrombin Time 13.0 sec (9.3-11.8)
[2025-03-23 06:46] LABS: Alanine Aminotransferase 17 U/L (7-40); Anion Gap 10 (5-15); BUN/Creatinine Ratio 20.1 (10.0-20.0); Carbon Dioxide 21 mmol/L (20-31); Chloride 106 mmol/L (98-107); Magnesium 2.1 mg/dL (1.6-2.6); Potassium 4.4 mmol/L (3.5-5.1); Sodium 137 mmol/L (136-145); Total Protein 6.4 g/dL (5.7-8.2)
[2025-03-23 06:51] LABS: Alkaline Phosphatase 242 U/L (46-116); Blood Urea Nitrogen 47 mg/dL (9-23); Glucose 139 mg/dL (74-106)
[2025-03-23 06:52] LABS: Albumin 2.6 g/dL (3.2-4.8); Bilirubin, Total 1.4 mg/dL (0.2-1.0); Calcium 8.4 mg/dL (8.7-10.4)
--- NOTE | 2025-03-23 09:03 | DVHPNRES ---
Progress Note Date Seen: Mar 23, 2025 Resident Creating Document: ELSI NORRIS RESIDENT Medical Necessity Reason Pt with a Central, PICC or Fol: Yes Subjective Review of Systems Patient is 60 years old male with past medical history of CHF, CKD, CVA, diabetes mellitus type 2, hypertension, seizure disorder came with a complaint of shortness of breaths. As per patient he has been having shortness of breaths for 3 days associated with the PND. Patient reported he came back [place] and started having runny nose and sneezing. Also started having shortness of breaths with the exertion and also with PND. Patient reported having sick contact with the other family members especially his aunt. Patient also endorsed left-sided chest pain for last 3 days, intermittent, sharp, could not give details. Patient denied any fever, dysuria, diarrhea. Patient reported he had hemodialysis before and also he had a defibrillator placed in chest but could not give me the exact reson. Patient reported he was [facility] for 1 and happened then followed by rehab at the same hospital for another 4 months. Patient reported he had some infection in his chest, so his defibrillator was taken off, he also had dialysis and catheter also removed due to infection. On further inquiry patient reported he was not able to walk so he was sent to rehab for almost for 4 month. Initial lab workup revealed positive for COVID-19, anemia with hemoglobin 7.7, thrombocytopenia with platelets 73, serum creatinine 2.05, BUN 23, GFR 36, D-dimer 7.38, INR 1.25, Total bilirubin 2.0, direct bilirubin 1.3, AST 110, ALT 22, alkaline phosphatase 385, troponin I 14, BNP 682, uterine creatinine 132, urine sodium 11, urine protein creatinine ratio 0.09, FENA .1%.. CXR- Increased interstital prominence. This may represent pulmonary vascular congestion and/or viral pneumonia. Doppler study negative for DVT. Echo 2D revealed LVEF 35%, moderate LV dysfunction, right ventricular enlargement moderate with a dysfunction. Biatrial enlargement. Moderate tricuspid regurgitation. PMH-CHF, CKD, CVA, diabetes mellitus type 2, hypertension, seizure disorder PSH- History of AICD implantation and explantation , Status post implantable loop recorder Allergy- aspirin, ibuprofen, lisinopril Personal History/ Social History- Smokes cigarettes less than a pack for 40 years, 1 glass per day alcohol use, marijuana abuse and methamphetamine abuse but denies other drug abuse Gastrointestinal- denies any rectal bleeding, nausea or vomiting Musculoskeletal-denies acute joint swelling or tenderness or redness Neurological- denies acute dysarthria, dysphagia, change in vision Psychiatry- denies depression or SI or HI Skin- denies acute rash or purpura Patient was seen today at bedside. Labs and chart reviewed. Patient had total 4 units of blood transfusion. Today patient's hemoglobin 8.2. Platelets 64. Patient's mellitus trending down. Blood culture no growth so far. Stool culture no growth so far. Nephrology recommendation reviewed and appreciated. Gastroenterology recommendation reviewed and appreciated. Gastroenterology discontinued Protonix and octreotide drip. Ordered IV Protonix 40 mg IV b.i.d.. Advanced to full liquid diet. Recommended for outpatient follow up with GI for endoscopy and colonoscopy. Objective vital signs Vital Sign Date Time Temp Pulse Resp B/P (MAP) Pulse Ox O2 Delivery O2 Flow Rate FiO2 03/23/25 08:46 97.7 80 18 122/73 (89) 98 97.7 03/23/25 06:02 Room Air 0.0 03/23/25 06:02 21 Total Intake and Output 03/22/25 03/22/25 03/23/25 15:00 23:00 07:00 Intake Total 751 ml 1087.2 ml 300 ml Output Total 0 ml 550 ml 250 ml Balance 751 ml 537.2 ml 50 ml medications Current Medications Medications Dose Ordered Sig/Maryan Route Start Time Stop Time Status Last Admin Dose Admin Sodium Chloride 10 ml Q8HR IV 03/20/25 22:00 03/23/25 06:01 10 ML Ondansetron HCl 4 mg Q4HP PRN IV 03/20/25 17:30 Acetaminophen 650 mg Q6HP PRN PO 03/20/25 17:30 03/21/25 21:59 650 MG Morphine Sulfate 2 mg Q4HPRN PRN IV 03/20/25 17:30 03/22/25 09:26 2 MG Nitroglycerin 0.4 mg Q5MINP PRN SL 03/20/25 17:30 Levetiracetam 500 mg BID PO 03/20/25 22:00 03/22/25 21:22 500 MG Amiodarone HCl 200 mg Q12HR PO 03/20/25 22:00 03/22/25 21:22 200 MG Atorvastatin Calcium 20 mg HS PO 03/20/25 22:00 03/22/25 21:22 20 MG Dexamethasone Sodium Phosphate 6 mg DAILY IV 03/21/25 08:30 03/22/25 09:19 6 MG Magnesium Sulfate/ Dextrose 100 ml @ 100 mls/hr Q1HR IV 03/21/25 09:00 03/21/25 10:59 UNV Remdesivir 100 mg/ Sodium Chloride 250 ml @ 250 mls/hr DAILY@1500 IV 03/22/25 15:00 03/23/25 15:59 03/22/25 18:05 250 MLS/HR Pantoprazole Sodium 40 mg BID PO 03/21/25 22:00 03/22/25 09:17 40 MG Sucralfate 1 gm QIDACHS PO 03/21/25 17:00 03/23/25 05:44 1 GM Lactulose 30 ml BID PO 03/21/25 22:00 Pantoprazole Sodium 50 ml @ 10 mls/hr Q5H IV 03/21/25 17:15 03/23/25 05:59 10 MLS/HR Octreotide Acetate 500 mcg/ Sodium Chloride 100 ml @ 10 mls/hr Q10H IV 03/21/25 17:15 03/23/25 05:59 10 MLS/HR Meropenem 50 ml @ 17 mls/hr Q12HR IV 03/21/25 22:00 03/22/25 21:18 17 MLS/HR Magnesium Sulfate/ Dextrose 100 ml @ 100 mls/hr Q1HR IV 03/22/25 09:00 Hold Albuterol 90 mcg TID IN 03/22/25 14:00 03/23/25 06:02 90 MCG Acetaminophen/ Hydrocodone Bitart 1 tab Q4HPRN PRN PO 03/22/25 08:30 03/22/25 21:35 1 TAB Haloperidol Lactate 2.5 mg Q6HPRN PRN IM 03/22/25 09:00 03/22/25 09:48 2.5 MG Folic Acid 1 mg/ Dextrose 50.2 ml @ 200.8 mls/ hr DAILY INJ 03/22/25 17:15 03/22/25 21:00 200.8 MLS/HR Thiamine HCl 500 mg TID IV 03/22/25 17:15 03/23/25 05:44 500 MG Furosemide 40 mg BID IV 03/22/25 22:00 03/22/25 21:21 40 MG Diagnostic Test (Pha) 1 strip ACHS 03/22/25 22:00 03/23/25 06:01 1 STRIP Insulin Human Regular ACHS SC 03/22/25 22:00 03/22/25 21:53 3 UNITS Dextrose 50 ml UD PRN IV 03/22/25 20:00 Examination General examination- awake, mild respiratory distress, agitation HEENT- PEERLA, no acute nasal discharge Cardiovascular- S1-S2 audible, rate and rhythm regular, no murmur Respiratory- bilateral lung crackles+ Gastrointestinal-nontender, bowel sound+. Nondistended Musculoskeletal-no acute joint swelling or tenderness or redness Lower extremity- bilateral leg edema+ Neurological- cranial nerves intact, no acute dysarthria or dysphagia Psychiatry- denies depression or SI or HI Skin- no acute rash or purpura laboratory and microbiology Laboratory Tests 03/23/25 05:44 Test 03/23/25 05:44 Range/Units Serum Glucose 139 H 74-106 mg/dL Microbiology Date/Time Source Procedure Growth Status 03/22/25 00:12 Nose MRSA Screen - Final Complete 03/21/25 13:15 Blood Blood Culture - Preliminary NO GROWTH AFTER 24 HOURS OF INCUBATION. Resulted 03/21/25 12:50 Stool Stool Culture - Preliminary Resulted 03/21/25 12:50 Stool Shiga Toxin I & II - Final Resulted Problem List/Assessment/Plan Problem List/Assessment/Plan Assessment and plan- Patient was not cooperative during history taking and physical examination. Details of the history and physical could not be obtained. # acute hypoxic respiratory failure likely due to COVID pneumonia/HFpEF # rule out pulmonary embolism # acute pneumonia Gram-positive versus Gram-negative -pending ventilation perfusion mismatch study -continue remdesivir as prescribed -continue Decadron as prescribed -continue ceftriaxone IV 1 g daily -continue doxycycline 100 mg IV b.i.d. -NC O2 as per titration -monitor vitals -as per Radiology as patient is COVID-19 positive V/Q scan can not be done at this time # acute metabolic encephalopathy likely due to acute hepatic failure/hypoxic encephalopathy/pneumonia -ordered lactulose 30 mL p.o. b.i.d. -continue pantoprazole 40 mg IV b.i.d. -continue other conservative management # septic shock likely due to pneumonia -blood culture no growth so far. -continue meropenem and vancomycin as prescribed. -continue current management -monitor vitals # acute GI bleeding #Suspected acute hepatic failure likely due to acute hepatitis/cirrhosis of liver # transaminitis -continue lactulose 30 mL p.o. b.i.d. -pantoprazole IV 40 mg bid -GI consult reviewed and appreciate. discontinued Protonix and octreotide drip. Ordered IV Protonix 40 mg IV b.i.d.. Advanced to full liquid diet. Recommended for outpatient follow up with GI for endoscopy and colonoscopy. -status post 4 unit blood transfusion # acute on chronic HFpEF, NYHA class 4 # cardiogenic shock, discontinued Levophed #Hx AICD post explantation 2/ endocarditis #Presence of loop recorder # bilateral leg edema, rule out DVT/CHF -Doppler study negative for DVT -echo 2D revealed LVEF 35%, moderate LV dysfunction, right ventricular enlargement moderate with a dysfunction. Biatrial enlargement. Moderate tricuspid regurgitation. -continue Lasix 40 mg IV bid # KEKE on CKD likely due to VMN # history of CKD # severe anemia likely due to acute GI bleeding -avoid dehydration and nephrotoxic drugs -nephrology recommendation reviewed and appreciated # severe anemia # bicytopenia # thrombocytopenia under evaluation -s/p 4 units blood transfusion -monitor CBC, CMP # seizure disorder -resume home medication Keppra 500 mg p.o. b.i.d. # substance abuse- +UDS: PCP/cannabinoids #Tobacco/alcohol use -patient was counseled about the effect of substance abuse, smoking/alcoholism on health Goals of care, Code status ; discussed with >15 minutes PUD prophylaxis: SCD DVT prophylaxis: Pantoprazole Plan discussed with , nursing staff, Total time spent on patient evaluation, chart review, assessment and plan, discussion discussion >75 minutes Plan discussed with: Patient, Other (RN) My Orders My Orders Orders - ELSI NORRIS RESIDENT Procedure Category Date Status Time Communication Order ORDERS 03/22/25 Transmitted 10:54 Cleanse Wound With YURI 03/22/25 In Process Wound Clean 11:50 Transfer Orders XFER 03/22/25 Transmitted 16:02 Folic Acid PHA 03/22/25 In Process 17:15 Thiamine Inj PHA 03/22/25 In Process 17:15 Glucose Blood PHA 03/22/25 In Process (Accu-Chek Comfort 22:00 Insulin R (Human) PHA 03/22/25 In Process (Insulin R) 22:00 Dextrose 50% Syringe PHA 03/22/25 In Process 20:00 * Logistics Analytics Manager CONS 03/23/25 Transmitted Consult 08:00 Dietary Evaluation Review Comments: 1. Tube feeding if EN/GI accessible. Glucerna @60ml/hr (1728kcal 86g Protein 1159ml free water) meeting 100% protein needs and 80% energy needs, 2. F/U with nephrology and GI consults and updated lab values 3. CCHO-60 Cardiac diet when medically feasible and passing CHEF BROILER OR FRY eval. Expected Outcomes/Goals: controlled DM, maintain wt, Date of Service: Mar 23, 2025 Billing Provider: MARLEN MCNALLY MD Common Visit Codes: [id number] INP/OBS CARE(HIGH) ELSI NORRIS RESIDENT Mar 23, 2025 09:03 MARLEN MCNALLY MD Mar 29, 2025 19:45
--- NOTE | 2025-03-23 12:50 | DVHPN2 ---
Progress Note Date Seen: Mar 23, 2025 Resident Creating Document: DONNY WARD RESIDENT Medical Necessity Reason Pt with a Central, PICC or Fol: Yes Subjective Review of Systems patient seen and examined at bedside last BM 03/22/25, soft brown denies any nausea or vomitting no signs of active GIB Objective vital signs Vital Sign Date Time Temp Pulse Resp B/P (MAP) Pulse Ox O2 Delivery O2 Flow Rate FiO2 03/23/25 10:19 122/73 03/23/25 08:46 97.7 80 18 98 97.7 03/23/25 06:02 Room Air 0.0 03/23/25 06:02 21 Total Intake and Output 03/22/25 03/22/25 03/23/25 15:00 23:00 07:00 Intake Total 751 ml 1087.2 ml 300 ml Output Total 0 ml 550 ml 250 ml Balance 751 ml 537.2 ml 50 ml medications Current Medications Medications Dose Ordered Sig/Maryan Route Start Time Stop Time Status Last Admin Dose Admin Sodium Chloride 10 ml Q8HR IV 03/20/25 22:00 03/23/25 06:01 10 ML Ondansetron HCl 4 mg Q4HP PRN IV 03/20/25 17:30 Acetaminophen 650 mg Q6HP PRN PO 03/20/25 17:30 03/21/25 21:59 650 MG Morphine Sulfate 2 mg Q4HPRN PRN IV 03/20/25 17:30 03/22/25 09:26 2 MG Nitroglycerin 0.4 mg Q5MINP PRN SL 03/20/25 17:30 Levetiracetam 500 mg BID PO 03/20/25 22:00 03/23/25 10:16 500 MG Amiodarone HCl 200 mg Q12HR PO 03/20/25 22:00 03/23/25 10:16 200 MG Atorvastatin Calcium 20 mg HS PO 03/20/25 22:00 03/22/25 21:22 20 MG Dexamethasone Sodium Phosphate 6 mg DAILY IV 03/21/25 08:30 03/23/25 10:19 6 MG Magnesium Sulfate/ Dextrose 100 ml @ 100 mls/hr Q1HR IV 03/21/25 09:00 03/21/25 10:59 UNV Remdesivir 100 mg/ Sodium Chloride 250 ml @ 250 mls/hr DAILY@1500 IV 03/22/25 15:00 03/23/25 15:59 03/22/25 18:05 250 MLS/HR Pantoprazole Sodium 40 mg BID PO 03/21/25 22:00 03/23/25 10:17 40 MG Sucralfate 1 gm QIDACHS PO 03/21/25 17:00 03/23/25 12:39 1 GM Lactulose 30 ml BID PO 03/21/25 22:00 Pantoprazole Sodium 50 ml @ 10 mls/hr Q5H IV 03/21/25 17:15 03/23/25 12:41 10 MLS/HR Octreotide Acetate 500 mcg/ Sodium Chloride 100 ml @ 10 mls/hr Q10H IV 03/21/25 17:15 03/23/25 05:59 10 MLS/HR Meropenem 50 ml @ 17 mls/hr Q12HR IV 03/21/25 22:00 03/23/25 10:18 17 MLS/HR Magnesium Sulfate/ Dextrose 100 ml @ 100 mls/hr Q1HR IV 03/22/25 09:00 Hold Albuterol 90 mcg TID IN 03/22/25 14:00 03/23/25 06:02 90 MCG Acetaminophen/ Hydrocodone Bitart 1 tab Q4HPRN PRN PO 03/22/25 08:30 03/22/25 21:35 1 TAB Haloperidol Lactate 2.5 mg Q6HPRN PRN IM 03/22/25 09:00 03/22/25 09:48 2.5 MG Folic Acid 1 mg/ Dextrose 50.2 ml @ 200.8 mls/ hr DAILY INJ 03/22/25 17:15 03/23/25 12:41 200.8 MLS/HR Thiamine HCl 500 mg TID IV 03/22/25 17:15 03/23/25 05:44 500 MG Furosemide 40 mg BID IV 03/22/25 22:00 03/23/25 10:19 40 MG Diagnostic Test (Pha) 1 strip ACHS 03/22/25 22:00 03/23/25 11:30 1 STRIP Insulin Human Regular ACHS SC 03/22/25 22:00 03/22/25 21:53 3 UNITS Dextrose 50 ml UD PRN IV 03/22/25 20:00 Examination General Appearance: Cooperative. In moderate distress Pulmonary/Respiratory: Chest non-tender. Coarse bilateral breath sounds Abdominal Exam: Normal bowel sounds. Soft. normal abdomen, no visible veins, Nontender. Neuro/Mental Status: A&O x4. Coherent. Thoughts/Psych: Normal thought pattern. Appropriate mood and affect. Good judgement and insight Skin Exam: Normal inspection. Normal color. Warm. Dry laboratory and microbiology Laboratory Tests 03/23/25 05:44 Test 03/23/25 05:44 Range/Units Serum Glucose 139 H 74-106 mg/dL Microbiology Date/Time Source Procedure Growth Status 03/22/25 00:12 Nose MRSA Screen - Final Complete 03/21/25 13:15 Blood Blood Culture - Preliminary NO GROWTH AFTER 24 HOURS OF INCUBATION. Resulted 03/21/25 12:50 Stool Stool Culture - Final Complete 03/21/25 12:50 Stool Shiga Toxin I & II - Final Complete Labs and/or images reviewed: Labs reviewed by me, Image(s) reviewed by me Problem List/Assessment/Plan Problem List/Assessment/Plan GI bleed Acute blood loss anemia due to above Heart failure with reduced ejection fraction in exacerbation COVID 19 positive Viral pneumonia Sepsis due to above Mixed shock: Hypovolemic vs septic vs cardiogenic Possible liver cirrhosis History of CVA Type 2 diabetes Seizure disorder KEKE likely hemodynamically mediated/VMN on possible CKD Plan: No signs of active GI bleed dc'ed Protonix drip and Octreotide drip IV protonix 40bid advanced to full liquid diet We will continue to follow the patient closely Outpatient follow up with GI for EGD and colonoscopy recommended Thank you so much for the opportunity to consult on your patient. GI team will follow the patient. In case of any questions or concerns please feel free to reach out. Plan discussed with Dr. Wong Plan discussed with: Patient, Other (RN) My Orders My Orders Orders - DONNY WARD RESIDENT Procedure Category Date Status Time Clear Liq Diet DIET 03/22/25 Transmitted Dinner Dietary Evaluation Review Comments: 1. Tube feeding if EN/GI accessible. Glucerna @60ml/hr (1728kcal 86g Protein 1159ml free water) meeting 100% protein needs and 80% energy needs, 2. F/U with nephrology and GI consults and updated lab values 3. CCHO-60 Cardiac diet when medically feasible and passing RESTAURANT ASSISTANT MANAGER eval. Expected Outcomes/Goals: controlled DM, maintain wt, DONNY WARD RESIDENT Mar 23, 2025 12:50
--- NOTE | 2025-03-23 18:57 | DVHPN2 ---
Progress Note Date Seen: Mar 23, 2025 Medical Necessity Reason Pt with a Central, PICC or Fol: Yes Subjective Patient reports: No new complaints Review of Systems: Deferred Objective vital signs Vital Sign Date Time Temp Pulse Resp B/P (MAP) Pulse Ox O2 Delivery O2 Flow Rate FiO2 03/23/25 16:52 97.9 86 18 128/75 (92) 96 97.9 03/23/25 13:23 Room Air* 0 21 Total Intake and Output 03/22/25 03/22/25 03/23/25 15:00 23:00 07:00 Intake Total 751 ml 1087.2 ml 300 ml Output Total 0 ml 550 ml 250 ml Balance 751 ml 537.2 ml 50 ml medications Current Medications Medications Dose Ordered Sig/Maryan Route Start Time Stop Time Status Last Admin Dose Admin Sodium Chloride 10 ml Q8HR IV 03/20/25 22:00 03/23/25 14:12 10 ML Ondansetron HCl 4 mg Q4HP PRN IV 03/20/25 17:30 Acetaminophen 650 mg Q6HP PRN PO 03/20/25 17:30 03/21/25 21:59 650 MG Morphine Sulfate 2 mg Q4HPRN PRN IV 03/20/25 17:30 03/22/25 09:26 2 MG Nitroglycerin 0.4 mg Q5MINP PRN SL 03/20/25 17:30 Levetiracetam 500 mg BID PO 03/20/25 22:00 03/23/25 10:16 500 MG Amiodarone HCl 200 mg Q12HR PO 03/20/25 22:00 03/23/25 10:16 200 MG Atorvastatin Calcium 20 mg HS PO 03/20/25 22:00 03/22/25 21:22 20 MG Dexamethasone Sodium Phosphate 6 mg DAILY IV 03/21/25 08:30 03/23/25 10:19 6 MG Magnesium Sulfate/ Dextrose 100 ml @ 100 mls/hr Q1HR IV 03/21/25 09:00 03/21/25 10:59 UNV Sucralfate 1 gm QIDACHS PO 03/21/25 17:00 03/23/25 17:55 1 GM Lactulose 30 ml BID PO 03/21/25 22:00 Meropenem 50 ml @ 17 mls/hr Q12HR IV 03/21/25 22:00 03/23/25 10:18 17 MLS/HR Magnesium Sulfate/ Dextrose 100 ml @ 100 mls/hr Q1HR IV 03/22/25 09:00 Hold Albuterol 90 mcg TID IN 03/22/25 14:00 03/23/25 13:23 90 MCG Acetaminophen/ Hydrocodone Bitart 1 tab Q4HPRN PRN PO 03/22/25 08:30 03/22/25 21:35 1 TAB Haloperidol Lactate 2.5 mg Q6HPRN PRN IM 03/22/25 09:00 03/22/25 09:48 2.5 MG Folic Acid 1 mg/ Dextrose 50.2 ml @ 200.8 mls/ hr DAILY INJ 03/22/25 17:15 03/23/25 12:41 200.8 MLS/HR Thiamine HCl 500 mg TID IV 03/22/25 17:15 03/23/25 14:12 500 MG Diagnostic Test (Pha) 1 strip ACHS 03/22/25 22:00 03/23/25 17:16 1 STRIP Insulin Human Regular ACHS SC 03/22/25 22:00 03/22/25 21:53 3 UNITS Dextrose 50 ml UD PRN IV 03/22/25 20:00 Pantoprazole Sodium 40 mg BID IV 03/23/25 22:00 Furosemide 20 mg DAILY IV 03/24/25 10:00 UNV Examination: GENERAL:Abnormal, LUNGS:Abnormal laboratory and microbiology Laboratory Tests 03/23/25 05:44 Test 03/23/25 05:44 Range/Units Serum Glucose 139 H 74-106 mg/dL Microbiology Date/Time Source Procedure Growth Status 03/22/25 00:12 Nose MRSA Screen - Final Complete 03/21/25 13:15 Blood Blood Culture - Preliminary NO GROWTH AFTER 48 HOURS OF INCUBATION. Resulted 03/21/25 12:50 Stool Stool Culture - Final Complete 03/21/25 12:50 Stool Shiga Toxin I & II - Final Complete Problem List/Assessment/Plan Problem List/Assessment/Plan Acute kidney injury likely hemodynamic mediated etiology in the setting of GI bleed Acute hypoxic respiratory failure COVID-19 pneumonia Acute blood loss anemia GI bleed History of Acute kidney injury needed dialysis stopped dialysis six months ago Recommendations Reduce IV Lasix dose to 20 mg IV once daily Status post multiple PRBC transfusion- Downgraded from ICU Plan discussed with: Patient My Orders My Orders Orders - PAM FRY MD Procedure Category Date Status Time Furosemide Injection PHA 03/24/25 Logged (Lasix Injection) 10:00 Dietary Evaluation Review Comments: 1. Tube feeding if EN/GI accessible. Glucerna @60ml/hr (1728kcal 86g Protein 1159ml free water) meeting 100% protein needs and 80% energy needs, 2. F/U with nephrology and GI consults and updated lab values 3. CCHO-60 Cardiac diet when medically feasible and passing CONSOLIDATION ACCOUNTANT eval. Expected Outcomes/Goals: controlled DM, maintain wt, PAM FRY MD Mar 23, 2025 18:57
[2025-03-23] MEDS: PANTOPRAZOLE 40 MG/10 ML VIAL INJ IV SCH (22:28)
[2025-03-24] VITALS (13 sets, daily range): BP systolic 117–140; BP diastolic 57–90; PULSE 80–90; RESP 16–20; TEMP 97.7–98.4; O2SAT 96–100
[2025-03-24 05:54] LABS: Mean Corpuscular Volume 81.2 fL (80.0-100.0); Nucleated Red Blood Cells % 0.2 %
--- NOTE | 2025-03-24 05:55 | DVH ---
CHEST RADIOGRAPH Indication: PNA/CHF Technique: Single frontal view of the chest was obtained COMPARISON: XY CHEST XRAY 1 VIEW on DOS: 03/22/25, XY CHEST PORTABLE on DOS: 03/20/25, XR CHEST 1 VIEW on DOS: 01/19/23, XR CHEST 1 VIEW on DOS: 01/15/23, CHEST PORTABLE on DOS: 08/15/21 FINDINGS: Lines and Tubes: None Lungs: Stable appearing mild bibasilar pulmonary airspace disease. Pleura: No effusion. No pneumothorax. Cardiomediastinal contours: Cardiomegaly. Bones: Unremarkable IMPRESSION: 1. Stable appearing mild bibasilar pulmonary airspace disease. 2. Cardiomegaly.
[2025-03-24 05:58] LABS: Hematocrit 24.3 % (41.0-53.0); Hemoglobin 8.4 g/dL (13.5-17.5); Mean Corpuscular Hemoglobin 28.0 pg (28.0-32.0)
[2025-03-24 06:14] LABS: Alanine Aminotransferase 15 U/L (7-40); Anion Gap 9 (5-15); BUN/Creatinine Ratio 20.2 (10.0-20.0); Carbon Dioxide 21 mmol/L (20-31); Magnesium 1.7 mg/dL (1.6-2.6); Potassium 4.5 mmol/L (3.5-5.1); Sodium 139 mmol/L (136-145); Total Protein 6.7 g/dL (5.7-8.2)
[2025-03-24 06:32] LABS: Albumin 2.8 g/dL (3.2-4.8); Alkaline Phosphatase 224 U/L (46-116); Bilirubin, Total 1.3 mg/dL (0.2-1.0); Blood Urea Nitrogen 47 mg/dL (9-23); Calcium 8.6 mg/dL (8.7-10.4); Chloride 109 mmol/L (98-107); Glucose 131 mg/dL (74-106)
[2025-03-24] MEDS: SODIUM CHLORIDE 0.9% 500 ML IV ONE (07:00)
[2025-03-24] MEDS: MAGNESIUM SULFATE 1GM/100ML 100 ML IV ONE (09:55)
[2025-03-24] MEDS: FUROSEMIDE 20 MG/2 ML VIAL IV SCH (09:58)
--- NOTE | 2025-03-24 12:16 | DVHPNRES ---
Progress Note Date Seen: Mar 24, 2025 Resident Creating Document: ELSI NORRIS RESIDENT Medical Necessity Reason Pt with a Central, PICC or Fol: No Subjective Review of Systems Patient is 60 years old male with past medical history of CHF, CKD, CVA, diabetes mellitus type 2, hypertension, seizure disorder came with a complaint of shortness of breaths. As per patient he has been having shortness of breaths for 3 days associated with the PND. Patient reported he came back [place] and started having runny nose and sneezing. Also started having shortness of breaths with the exertion and also with PND. Patient reported having sick contact with the other family members especially his aunt. Patient also endorsed left-sided chest pain for last 3 days, intermittent, sharp, could not give details. Patient denied any fever, dysuria, diarrhea. Patient reported he had hemodialysis before and also he had a defibrillator placed in chest but could not give me the exact reson. Patient reported he was [facility] for 1 and happened then followed by rehab at the same hospital for another 4 months. Patient reported he had some infection in his chest, so his defibrillator was taken off, he also had dialysis and catheter also removed due to infection. On further inquiry patient reported he was not able to walk so he was sent to rehab for almost for 4 month. Initial lab workup revealed positive for COVID-19, anemia with hemoglobin 7.7, thrombocytopenia with platelets 73, serum creatinine 2.05, BUN 23, GFR 36, D-dimer 7.38, INR 1.25, Total bilirubin 2.0, direct bilirubin 1.3, AST 110, ALT 22, alkaline phosphatase 385, troponin I 14, BNP 682, uterine creatinine 132, urine sodium 11, urine protein creatinine ratio 0.09, FENA .1%.. CXR- Increased interstital prominence. This may represent pulmonary vascular congestion and/or viral pneumonia. Doppler study negative for DVT. Echo 2D revealed LVEF 35%, moderate LV dysfunction, right ventricular enlargement moderate with a dysfunction. Biatrial enlargement. Moderate tricuspid regurgitation. PMH-CHF, CKD, CVA, diabetes mellitus type 2, hypertension, seizure disorder PSH- History of AICD implantation and explantation , Status post implantable loop recorder Allergy- aspirin, ibuprofen, lisinopril Personal History/ Social History- Smokes cigarettes less than a pack for 40 years, 1 glass per day alcohol use, marijuana abuse and methamphetamine abuse but denies other drug abuse Gastrointestinal- denies any rectal bleeding, nausea or vomiting Musculoskeletal-denies acute joint swelling or tenderness or redness Neurological- denies acute dysarthria, dysphagia, change in vision Psychiatry- denies depression or SI or HI Skin- denies acute rash or purpura Patient was seen today at bedside. Labs and chart reviewed. Patient reported much better today. Physical therapy evaluation. Patient was seen by Nephrology, recommendation reviewed and appreciated. GI recommended to advance diet to mechanical soft. Plan is to discharge patient tomorrow. Objective vital signs Vital Sign Date Time Temp Pulse Resp B/P (MAP) Pulse Ox O2 Delivery O2 Flow Rate FiO2 03/24/25 10:00 96 Room Air 03/24/25 10:00 0 21 03/24/25 09:58 131/60 03/24/25 09:00 90 18 03/24/25 05:00 98.4 98.4 Total Intake and Output 03/23/25 03/23/25 03/24/25 15:00 23:00 07:00 Intake Total 300.8 ml 1150 ml 650 ml Output Total 1000 ml Balance 300.8 ml 150 ml 650 ml medications Current Medications Medications Dose Ordered Sig/Maryan Route Start Time Stop Time Status Last Admin Dose Admin Sodium Chloride 10 ml Q8HR IV 03/20/25 22:00 03/24/25 05:45 10 ML Ondansetron HCl 4 mg Q4HP PRN IV 03/20/25 17:30 Acetaminophen 650 mg Q6HP PRN PO 03/20/25 17:30 03/21/25 21:59 650 MG Morphine Sulfate 2 mg Q4HPRN PRN IV 03/20/25 17:30 03/23/25 22:34 2 MG Nitroglycerin 0.4 mg Q5MINP PRN SL 03/20/25 17:30 Levetiracetam 500 mg BID PO 03/20/25 22:00 03/24/25 09:58 500 MG Amiodarone HCl 200 mg Q12HR PO 03/20/25 22:00 03/24/25 09:57 200 MG Atorvastatin Calcium 20 mg HS PO 03/20/25 22:00 03/23/25 22:29 20 MG Dexamethasone Sodium Phosphate 6 mg DAILY IV 03/21/25 08:30 03/24/25 09:57 6 MG Magnesium Sulfate/ Dextrose 100 ml @ 100 mls/hr Q1HR IV 03/21/25 09:00 03/21/25 10:59 UNV Sucralfate 1 gm QIDACHS PO 03/21/25 17:00 03/24/25 09:58 1 GM Lactulose 30 ml BID PO 03/21/25 22:00 03/24/25 09:55 30 ML Meropenem 50 ml @ 17 mls/hr Q12HR IV 03/21/25 22:00 03/24/25 09:55 17 MLS/HR Magnesium Sulfate/ Dextrose 100 ml @ 100 mls/hr Q1HR IV 03/22/25 09:00 Hold Albuterol 90 mcg TID IN 03/22/25 14:00 03/24/25 07:10 90 MCG Acetaminophen/ Hydrocodone Bitart 1 tab Q4HPRN PRN PO 03/22/25 08:30 03/24/25 06:21 1 TAB Haloperidol Lactate 2.5 mg Q6HPRN PRN IM 03/22/25 09:00 03/22/25 09:48 2.5 MG Folic Acid 1 mg/ Dextrose 50.2 ml @ 200.8 mls/ hr DAILY INJ 03/22/25 17:15 03/24/25 09:55 200.8 MLS/HR Thiamine HCl 500 mg TID IV 03/22/25 17:15 03/24/25 05:43 500 MG Diagnostic Test (Pha) 1 strip ACHS 03/22/25 22:00 03/24/25 11:55 1 STRIP Insulin Human Regular ACHS SC 03/22/25 22:00 03/24/25 06:23 2 UNITS Dextrose 50 ml UD PRN IV 03/22/25 20:00 Pantoprazole Sodium 40 mg BID IV 03/23/25 22:00 03/24/25 09:56 40 MG Furosemide 20 mg DAILY IV 03/24/25 10:00 03/24/25 09:58 20 MG Examination General examination- awake, alert and oriented HEENT- PEERLA, no acute nasal discharge Cardiovascular- S1-S2 audible, rate and rhythm regular, no murmur Respiratory- CTAB, no wheezing Gastrointestinal-nontender, bowel sound+. Nondistended Musculoskeletal-no acute joint swelling or tenderness or redness Lower extremity- no leg edema Neurological- cranial nerves intact, no acute dysarthria or dysphagia Psychiatry- denies depression or SI or HI Skin- no acute rash or purpura laboratory and microbiology Laboratory Tests 03/24/25 05:21 Test 03/24/25 05:21 Range/Units Serum Glucose 131 H 74-106 mg/dL Microbiology Date/Time Source Procedure Growth Status 03/22/25 00:12 Nose MRSA Screen - Final Complete 03/21/25 13:15 Blood Blood Culture - Preliminary NO GROWTH AFTER 48 HOURS OF INCUBATION. Resulted 03/21/25 12:50 Stool Stool Culture - Final Complete 03/21/25 12:50 Stool Shiga Toxin I & II - Final Complete Problem List/Assessment/Plan Problem List/Assessment/Plan Assessment and plan- # acute hypoxic respiratory failure likely due to COVID pneumonia/HFpEF # rule out pulmonary embolism # acute pneumonia Gram-positive versus Gram-negative -pending ventilation perfusion mismatch study -continue remdesivir as prescribed -continue Decadron as prescribed -continue ceftriaxone IV 1 g daily -continue doxycycline 100 mg IV b.i.d. -NC O2 as per titration -monitor vitals -as per Radiology as patient is COVID-19 positive V/Q scan can not be done at this time # acute metabolic encephalopathy likely due to acute hepatic failure/hypoxic encephalopathy/pneumonia -ordered lactulose 30 mL p.o. b.i.d. -continue pantoprazole 40 mg IV b.i.d. -continue other conservative management # septic shock likely due to pneumonia -blood culture no growth so far. -continue meropenem and vancomycin as prescribed. -continue current management -monitor vitals # acute GI bleeding #Suspected acute hepatic failure likely due to acute hepatitis/cirrhosis of liver # transaminitis -continue lactulose 30 mL p.o. b.i.d. -pantoprazole IV 40 mg bid -GI consult reviewed and appreciate. discontinued Protonix and octreotide drip. Ordered IV Protonix 40 mg IV b.i.d.. Advanced to full liquid diet. Recommended for outpatient follow up with GI for endoscopy and colonoscopy. 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 Biatrial enlargement. Moderate tricuspid regurgitation. -continue Lasix 40 mg IV bid # KEKE on CKD likely due to VMN # history of CKD # severe anemia likely due to acute GI bleeding -avoid dehydration and nephrotoxic drugs -nephrology recommendation reviewed and appreciated # severe anemia # bicytopenia # thrombocytopenia under evaluation -s/p 4 units blood transfusion -monitor CBC, CMP # seizure disorder -resume home medication Keppra 500 mg p.o. b.i.d. # substance abuse- +UDS: PCP/cannabinoids #Tobacco/alcohol use -patient was counseled about the effect of substance abuse, smoking/alcoholism on health Goals of care, Code status ; discussed with >15 minutes PUD prophylaxis: SCD DVT prophylaxis: Pantoprazole Plan discussed with , nursing staff, Total time spent on patient evaluation, chart review, assessment and plan, discussion discussion >75 minutes Plan discussed with: Patient, Other Dietary Evaluation Review Comments: 1. Tube feeding if EN/GI accessible. Glucerna @60ml/hr (1728kcal 86g Protein 1159ml free water) meeting 100% protein needs and 80% energy needs, 2. F/U with nephrology and GI consults and updated lab values 3. CCHO-60 Cardiac diet when medically feasible and passing BRIDGE TEACHER eval. Expected Outcomes/Goals: controlled DM, maintain wt, Date of Service: Mar 24, 2025 Billing Provider: MARLEN MCNALLY MD Common Visit Codes: [id number] INP/OBS CARE(HIGH) ELSI NORRIS RESIDENT Mar 24, 2025 12:16 MARLEN MCNALLY MD Mar 29, 2025 19:45
--- NOTE | 2025-03-24 12:26 | DVHPN2 ---
Progress Note Date Seen: Mar 24, 2025 Resident Creating Document: DONNY WARD RESIDENT Medical Necessity Reason Pt with a Central, PICC or Fol: No Subjective Review of Systems Patient seen and examined at bedside Denies any nausea, vomiting or diarrhea No signs of active GI bleeding Last bowel movement per patient was yesterday, brown and soft Stable H&H Objective vital signs Vital Sign Date Time Temp Pulse Resp B/P (MAP) Pulse Ox O2 Delivery O2 Flow Rate FiO2 03/24/25 10:00 96 Room Air 03/24/25 10:00 0 21 03/24/25 09:58 131/60 03/24/25 09:00 90 18 03/24/25 05:00 98.4 98.4 Total Intake and Output 03/23/25 03/23/25 03/24/25 15:00 23:00 07:00 Intake Total 300.8 ml 1150 ml 650 ml Output Total 1000 ml Balance 300.8 ml 150 ml 650 ml medications Current Medications Medications Dose Ordered Sig/Maryan Route Start Time Stop Time Status Last Admin Dose Admin Sodium Chloride 10 ml Q8HR IV 03/20/25 22:00 03/24/25 05:45 10 ML Ondansetron HCl 4 mg Q4HP PRN IV 03/20/25 17:30 Acetaminophen 650 mg Q6HP PRN PO 03/20/25 17:30 03/21/25 21:59 650 MG Morphine Sulfate 2 mg Q4HPRN PRN IV 03/20/25 17:30 03/23/25 22:34 2 MG Nitroglycerin 0.4 mg Q5MINP PRN SL 03/20/25 17:30 Levetiracetam 500 mg BID PO 03/20/25 22:00 03/24/25 09:58 500 MG Amiodarone HCl 200 mg Q12HR PO 03/20/25 22:00 03/24/25 09:57 200 MG Atorvastatin Calcium 20 mg HS PO 03/20/25 22:00 03/23/25 22:29 20 MG Dexamethasone Sodium Phosphate 6 mg DAILY IV 03/21/25 08:30 03/24/25 09:57 6 MG Magnesium Sulfate/ Dextrose 100 ml @ 100 mls/hr Q1HR IV 03/21/25 09:00 03/21/25 10:59 UNV Sucralfate 1 gm QIDACHS PO 03/21/25 17:00 03/24/25 09:58 1 GM Lactulose 30 ml BID PO 03/21/25 22:00 03/24/25 09:55 30 ML Meropenem 50 ml @ 17 mls/hr Q12HR IV 03/21/25 22:00 03/24/25 09:55 17 MLS/HR Magnesium Sulfate/ Dextrose 100 ml @ 100 mls/hr Q1HR IV 03/22/25 09:00 Hold Albuterol 90 mcg TID IN 03/22/25 14:00 03/24/25 07:10 90 MCG Acetaminophen/ Hydrocodone Bitart 1 tab Q4HPRN PRN PO 03/22/25 08:30 03/24/25 06:21 1 TAB Haloperidol Lactate 2.5 mg Q6HPRN PRN IM 03/22/25 09:00 03/22/25 09:48 2.5 MG Folic Acid 1 mg/ Dextrose 50.2 ml @ 200.8 mls/ hr DAILY INJ 03/22/25 17:15 03/24/25 09:55 200.8 MLS/HR Thiamine HCl 500 mg TID IV 03/22/25 17:15 03/24/25 05:43 500 MG Diagnostic Test (Pha) 1 strip ACHS 03/22/25 22:00 03/24/25 11:55 1 STRIP Insulin Human Regular ACHS SC 03/22/25 22:00 03/24/25 06:23 2 UNITS Dextrose 50 ml UD PRN IV 03/22/25 20:00 Pantoprazole Sodium 40 mg BID IV 03/23/25 22:00 03/24/25 09:56 40 MG Furosemide 20 mg DAILY IV 03/24/25 10:00 03/24/25 09:58 20 MG Examination General Appearance: Cooperative. In moderate distress Pulmonary/Respiratory: Chest non-tender. Coarse bilateral breath sounds Abdominal Exam: Normal bowel sounds. Soft. normal abdomen, no visible veins, Nontender. Neuro/Mental Status: A&O x4. Coherent. Thoughts/Psych: Normal thought pattern. Appropriate mood and affect. Good judgement and insight Skin Exam: Normal inspection. Normal color. Warm. Dry laboratory and microbiology Laboratory Tests 03/24/25 05:21 Test 03/24/25 05:21 Range/Units Serum Glucose 131 H 74-106 mg/dL Microbiology Date/Time Source Procedure Growth Status 03/22/25 00:12 Nose MRSA Screen - Final Complete 03/21/25 13:15 Blood Blood Culture - Preliminary NO GROWTH AFTER 48 HOURS OF INCUBATION. Resulted 03/21/25 12:50 Stool Stool Culture - Final Complete 03/21/25 12:50 Stool Shiga Toxin I & II - Final Complete Labs and/or images reviewed: Labs reviewed by me, Image(s) reviewed by me Problem List/Assessment/Plan Problem List/Assessment/Plan GI bleed Acute blood loss anemia due to above , now resolved Heart failure with reduced ejection fraction in exacerbation COVID 19 positive Viral pneumonia Sepsis due to above Mixed shock: Hypovolemic vs septic vs cardiogenic Possible liver cirrhosis History of CVA Type 2 diabetes Seizure disorder KEKE likely hemodynamically mediated/VMN on possible CKD Plan: No signs of active GI bleed dc'ed Protonix drip and Octreotide drip IV protonix 40bid advanced to mechanical soft We will continue to follow the patient closely Outpatient follow up with GI for EGD and colonoscopy recommended Thank you so much for the opportunity to consult on your patient. GI team will follow the patient. In case of any questions or concerns please feel free to reach out. Plan discussed with Dr. Wong Plan discussed with: Patient, Other (RN) My Orders My Orders Orders - DONNY WARD RESIDENT Procedure Category Date Status Time Full Liq Diet DIET 03/23/25 Transmitted Dinner Pantoprazole PHA 03/23/25 In Process (Protonix) 22:00 Dietary Evaluation Review Comments: 1. Tube feeding if EN/GI accessible. Glucerna @60ml/hr (1728kcal 86g Protein 1159ml free water) meeting 100% protein needs and 80% energy needs, 2. F/U with nephrology and GI consults and updated lab values 3. CCHO-60 Cardiac diet when medically feasible and passing CUSTOMER SERVICE DRIVER eval. Expected Outcomes/Goals: controlled DM, maintain wt, DONNY WARD RESIDENT Mar 24, 2025 12:26
--- NOTE | 2025-03-24 14:40 | DVHPN2 ---
Progress Note Date Seen: Mar 24, 2025 Medical Necessity Reason Pt with a Central, PICC or Fol: No Subjective Patient reports: No new complaints Other Systems: Patient seen and examined by myself today in follow-up Objective vital signs Vital Sign Date Time Temp Pulse Resp B/P (MAP) Pulse Ox O2 Delivery O2 Flow Rate FiO2 03/24/25 13:00 98.0 81 18 128/87 (101) 96 98.0 03/24/25 10:00 Room Air 03/24/25 10:00 0 21 Total Intake and Output 03/23/25 03/23/25 03/24/25 15:00 23:00 07:00 Intake Total 300.8 ml 1150 ml 650 ml Output Total 1000 ml Balance 300.8 ml 150 ml 650 ml medications Current Medications Medications Dose Ordered Sig/Maryan Route Start Time Stop Time Status Last Admin Dose Admin Sodium Chloride 10 ml Q8HR IV 03/20/25 22:00 03/24/25 05:45 10 ML Ondansetron HCl 4 mg Q4HP PRN IV 03/20/25 17:30 Acetaminophen 650 mg Q6HP PRN PO 03/20/25 17:30 03/21/25 21:59 650 MG Morphine Sulfate 2 mg Q4HPRN PRN IV 03/20/25 17:30 03/23/25 22:34 2 MG Nitroglycerin 0.4 mg Q5MINP PRN SL 03/20/25 17:30 Levetiracetam 500 mg BID PO 03/20/25 22:00 03/24/25 09:58 500 MG Amiodarone HCl 200 mg Q12HR PO 03/20/25 22:00 03/24/25 09:57 200 MG Atorvastatin Calcium 20 mg HS PO 03/20/25 22:00 03/23/25 22:29 20 MG Dexamethasone Sodium Phosphate 6 mg DAILY IV 03/21/25 08:30 03/24/25 09:57 6 MG Magnesium Sulfate/ Dextrose 100 ml @ 100 mls/hr Q1HR IV 03/21/25 09:00 03/21/25 10:59 UNV Sucralfate 1 gm QIDACHS PO 03/21/25 17:00 03/24/25 09:58 1 GM Lactulose 30 ml BID PO 03/21/25 22:00 03/24/25 09:55 30 ML Meropenem 50 ml @ 17 mls/hr Q12HR IV 03/21/25 22:00 03/24/25 09:55 17 MLS/HR Magnesium Sulfate/ Dextrose 100 ml @ 100 mls/hr Q1HR IV 03/22/25 09:00 Hold Albuterol 90 mcg TID IN 03/22/25 14:00 03/24/25 07:10 90 MCG Acetaminophen/ Hydrocodone Bitart 1 tab Q4HPRN PRN PO 03/22/25 08:30 03/24/25 06:21 1 TAB Haloperidol Lactate 2.5 mg Q6HPRN PRN IM 03/22/25 09:00 03/22/25 09:48 2.5 MG Folic Acid 1 mg/ Dextrose 50.2 ml @ 200.8 mls/ hr DAILY INJ 03/22/25 17:15 03/24/25 09:55 200.8 MLS/HR Thiamine HCl 500 mg TID IV 03/22/25 17:15 03/24/25 14:35 500 MG Diagnostic Test (Pha) 1 strip ACHS 03/22/25 22:00 03/24/25 11:55 1 STRIP Insulin Human Regular ACHS SC 03/22/25 22:00 03/24/25 06:23 2 UNITS Dextrose 50 ml UD PRN IV 03/22/25 20:00 Pantoprazole Sodium 40 mg BID IV 03/23/25 22:00 03/24/25 09:56 40 MG Furosemide 20 mg DAILY IV 03/24/25 10:00 03/24/25 09:58 20 MG Examination: LUNGS:Normal, CVS:Normal, MSK:Normal laboratory and microbiology Laboratory Tests 03/24/25 05:21 Test 03/24/25 05:21 Range/Units Serum Glucose 131 H 74-106 mg/dL Microbiology Date/Time Source Procedure Growth Status 03/22/25 00:12 Nose MRSA Screen - Final Complete 03/21/25 13:15 Blood Blood Culture - Preliminary NO GROWTH AFTER 72 HOURS OF INCUBATION. Resulted 03/21/25 12:50 Stool Stool Culture - Final Complete 03/21/25 12:50 Stool Shiga Toxin I & II - Final Complete Problem List/Assessment/Plan Problem List/Assessment/Plan Acute kidney injury superimposed Chronic Kidney Disease secondary hemodynamic mediated,, FeNa < 1% Liver cirrhosis Congestive heart failure, ejection fraction 35% Anemia due to blood loss GI bleeding History of Acute kidney injury needed dialysis stopped dialysis six months ago Recommendations Kidney function slightly worsened today Increased urine output Strict I&Os I agree with diuresis Packed red blood cell transfusion p.r.n. GI consult We will continue to follow up Plan discussed with: Patient Dietary Evaluation Review Comments: 1. Tube feeding if EN/GI accessible. Glucerna @60ml/hr (1728kcal 86g Protein 1159ml free water) meeting 100% protein needs and 80% energy needs, 2. F/U with nephrology and GI consults and updated lab values 3. [facility] Cardiac diet when medically feasible and passing NUTRITION INTERN eval. Expected Outcomes/Goals: controlled DM, maintain wt, LAURE DUFFY MD Mar 24, 2025 14:40
[2025-03-25] VITALS (11 sets, daily range): BP systolic 118–151; BP diastolic 73–91; PULSE 63–95; RESP 16–19; TEMP 96.8–98.2; O2SAT 92–100
[2025-03-25 06:23] LABS: Hematocrit 23.0 % (41.0-53.0); Hemoglobin 7.7 g/dL (13.5-17.5); Mean Corpuscular Hemoglobin 27.3 pg (28.0-32.0); Mean Corpuscular Volume 81.8 fL (80.0-100.0); Nucleated Red Blood Cells % 0.2 %
[2025-03-25 06:47] LABS: Alanine Aminotransferase 13 U/L (7-40); Anion Gap 8 (5-15); BUN/Creatinine Ratio 20.1 (10.0-20.0); Bilirubin, Total 1.2 mg/dL (0.2-1.0); Carbon Dioxide 21 mmol/L (20-31); Magnesium 2.0 mg/dL (1.6-2.6); Potassium 4.3 mmol/L (3.5-5.1); Sodium 138 mmol/L (136-145); Total Protein 6.2 g/dL (5.7-8.2)
[2025-03-25 06:49] LABS: Albumin 2.6 g/dL (3.2-4.8); Alkaline Phosphatase 216 U/L (46-116); Blood Urea Nitrogen 44 mg/dL (9-23); Calcium 8.4 mg/dL (8.7-10.4); Chloride 109 mmol/L (98-107); Glucose 136 mg/dL (74-106)
--- NOTE | 2025-03-25 09:49 | DVHPN2 ---
Progress Note Date Seen: Mar 25, 2025 Resident Creating Document: DONNY WARD RESIDENT Medical Necessity Reason Pt with a Central, PICC or Fol: No Subjective Review of Systems Patient seen and examined at bedside Denies any nausea or vomiting Last bowel movement this a.m., nonbloody Tolerating diet Stable H&H Objective vital signs Vital Sign Date Time Temp Pulse Resp B/P (MAP) Pulse Ox O2 Delivery O2 Flow Rate FiO2 03/25/25 09:05 110/77 03/25/25 08:00 90 18 100 Room Air* 0 21 03/25/25 04:49 97.8 97.8 Total Intake and Output 03/24/25 03/24/25 03/25/25 15:00 23:00 07:00 Intake Total 1115 ml 1575 ml 290 ml Output Total 1100 ml Balance 1115 ml 475 ml 290 ml medications Current Medications Medications Dose Ordered Sig/Maryan Route Start Time Stop Time Status Last Admin Dose Admin Sodium Chloride 10 ml Q8HR IV 03/20/25 22:00 03/25/25 05:58 10 ML Ondansetron HCl 4 mg Q4HP PRN IV 03/20/25 17:30 Acetaminophen 650 mg Q6HP PRN PO 03/20/25 17:30 03/21/25 21:59 650 MG Morphine Sulfate 2 mg Q4HPRN PRN IV 03/20/25 17:30 03/24/25 21:57 2 MG Nitroglycerin 0.4 mg Q5MINP PRN SL 03/20/25 17:30 Levetiracetam 500 mg BID PO 03/20/25 22:00 03/25/25 09:04 500 MG Amiodarone HCl 200 mg Q12HR PO 03/20/25 22:00 03/25/25 09:04 200 MG Atorvastatin Calcium 20 mg HS PO 03/20/25 22:00 03/24/25 21:56 20 MG Dexamethasone Sodium Phosphate 6 mg DAILY IV 03/21/25 08:30 03/25/25 09:05 6 MG Magnesium Sulfate/ Dextrose 100 ml @ 100 mls/hr Q1HR IV 03/21/25 09:00 03/21/25 10:59 UNV Sucralfate 1 gm QIDACHS PO 03/21/25 17:00 03/25/25 09:04 1 GM Lactulose 30 ml BID PO 03/21/25 22:00 03/25/25 09:04 30 ML Meropenem 50 ml @ 17 mls/hr Q12HR IV 03/21/25 22:00 03/25/25 09:03 17 MLS/HR Magnesium Sulfate/ Dextrose 100 ml @ 100 mls/hr Q1HR IV 03/22/25 09:00 Hold Albuterol 90 mcg TID IN 03/22/25 14:00 03/25/25 06:53 90 MCG Acetaminophen/ Hydrocodone Bitart 1 tab Q4HPRN PRN PO 03/22/25 08:30 03/24/25 17:01 1 TAB Haloperidol Lactate 2.5 mg Q6HPRN PRN IM 03/22/25 09:00 03/22/25 09:48 2.5 MG Folic Acid 1 mg/ Dextrose 50.2 ml @ 200.8 mls/ hr DAILY INJ 03/22/25 17:15 03/25/25 09:10 200.8 MLS/HR Thiamine HCl 500 mg TID IV 03/22/25 17:15 03/25/25 05:58 500 MG Diagnostic Test (Pha) 1 strip ACHS 03/22/25 22:00 03/25/25 05:58 1 STRIP Insulin Human Regular ACHS SC 03/22/25 22:00 03/24/25 22:19 2 UNITS Dextrose 50 ml UD PRN IV 03/22/25 20:00 Pantoprazole Sodium 40 mg BID IV 03/23/25 22:00 03/25/25 09:04 40 MG Furosemide 20 mg DAILY IV 03/24/25 10:00 03/25/25 09:05 20 MG Examination General Appearance: Cooperative. In moderate distress Pulmonary/Respiratory: Chest non-tender. Coarse bilateral breath sounds Abdominal Exam: Normal bowel sounds. Soft. normal abdomen, no visible veins, Nontender. Neuro/Mental Status: A&O x4. Coherent. Thoughts/Psych: Normal thought pattern. Appropriate mood and affect. Good judgement and insight Skin Exam: Normal inspection. Normal color. Warm. Dry laboratory and microbiology Laboratory Tests 03/25/25 05:30 Test 03/25/25 05:30 Range/Units Serum Glucose 136 H 74-106 mg/dL Microbiology Date/Time Source Procedure Growth Status 03/22/25 00:12 Nose MRSA Screen - Final Complete 03/21/25 13:15 Blood Blood Culture - Preliminary NO GROWTH AFTER 72 HOURS OF INCUBATION. Resulted 03/21/25 12:50 Stool Stool Culture - Final Complete 03/21/25 12:50 Stool Shiga Toxin I & II - Final Complete Labs and/or images reviewed: Labs reviewed by me, Image(s) reviewed by me Problem List/Assessment/Plan Problem List/Assessment/Plan GI bleed Acute blood loss anemia due to above , now resolved Heart failure with reduced ejection fraction in exacerbation COVID 19 positive Viral pneumonia Sepsis due to above Mixed shock: Hypovolemic vs septic vs cardiogenic Possible liver cirrhosis History of CVA Type 2 diabetes Seizure disorder KEKE likely hemodynamically mediated/VMN on possible CKD Plan: No signs of active GI bleed dc'ed Protonix drip and Octreotide drip IV protonix 40bid advanced to mechanical soft We will continue to follow the patient closely Outpatient follow up with GI for EGD and colonoscopy recommended Thank you so much for the opportunity to consult on your patient. GI team will follow the patient. In case of any questions or concerns please feel free to reach out. Plan discussed with Dr. Wong Plan discussed with: Patient, Other (RN) My Orders My Orders Orders - DONNY AWRD RESIDENT Procedure Category Date Status Time Mechanical Soft Diet DIET 03/24/25 Transmitted Lunch Dietary Evaluation Review Comments: 1. Tube feeding if EN/GI accessible. Glucerna @60ml/hr (1728kcal 86g Protein 1159ml free water) meeting 100% protein needs and 80% energy needs, 2. F/U with nephrology and GI consults and updated lab values 3. CCHO-60 Cardiac diet when medically feasible and passing AWNING SPREADER eval. Expected Outcomes/Goals: controlled DM, maintain wt, DONNY WARD RESIDENT Mar 25, 2025 09:49
--- NOTE | 2025-03-25 11:39 | DVHPN2 ---
Progress Note Date Seen: Mar 25, 2025 Medical Necessity Reason Pt with a Central, PICC or Fol: No Subjective Patient reports: No new complaints, Feels better Review of Systems: Deferred Objective vital signs Vital Sign Date Time Temp Pulse Resp B/P (MAP) Pulse Ox O2 Delivery O2 Flow Rate FiO2 03/25/25 10:00 97 Room Air 0.0 03/25/25 10:00 21 03/25/25 09:05 110/77 03/25/25 08:00 90 18 03/25/25 04:49 97.8 97.8 Total Intake and Output 03/24/25 03/24/25 03/25/25 15:00 23:00 07:00 Intake Total 1165 ml 1675 ml 290 ml Output Total 1100 ml Balance 1165 ml 575 ml 290 ml medications Current Medications Medications Dose Ordered Sig/Maryan Route Start Time Stop Time Status Last Admin Dose Admin Sodium Chloride 10 ml Q8HR IV 03/20/25 22:00 03/25/25 05:58 10 ML Ondansetron HCl 4 mg Q4HP PRN IV 03/20/25 17:30 Acetaminophen 650 mg Q6HP PRN PO 03/20/25 17:30 03/21/25 21:59 650 MG Morphine Sulfate 2 mg Q4HPRN PRN IV 03/20/25 17:30 03/24/25 21:57 2 MG Nitroglycerin 0.4 mg Q5MINP PRN SL 03/20/25 17:30 Levetiracetam 500 mg BID PO 03/20/25 22:00 03/25/25 09:04 500 MG Amiodarone HCl 200 mg Q12HR PO 03/20/25 22:00 03/25/25 09:04 200 MG Atorvastatin Calcium 20 mg HS PO 03/20/25 22:00 03/24/25 21:56 20 MG Dexamethasone Sodium Phosphate 6 mg DAILY IV 03/21/25 08:30 03/25/25 09:05 6 MG Magnesium Sulfate/ Dextrose 100 ml @ 100 mls/hr Q1HR IV 03/21/25 09:00 03/21/25 10:59 UNV Sucralfate 1 gm QIDACHS PO 03/21/25 17:00 03/25/25 09:04 1 GM Lactulose 30 ml BID PO 03/21/25 22:00 03/25/25 09:04 30 ML Meropenem 50 ml @ 17 mls/hr Q12HR IV 03/21/25 22:00 03/25/25 09:03 17 MLS/HR Albuterol 90 mcg TID IN 03/22/25 14:00 03/25/25 06:53 90 MCG Acetaminophen/ Hydrocodone Bitart 1 tab Q4HPRN PRN PO 03/22/25 08:30 03/24/25 17:01 1 TAB Haloperidol Lactate 2.5 mg Q6HPRN PRN IM 03/22/25 09:00 03/22/25 09:48 2.5 MG Folic Acid 1 mg/ Dextrose 50.2 ml @ 200.8 mls/ hr DAILY INJ 03/22/25 17:15 03/25/25 09:10 200.8 MLS/HR Diagnostic Test (Pha) 1 strip ACHS 03/22/25 22:00 03/25/25 05:58 1 STRIP Insulin Human Regular ACHS SC 03/22/25 22:00 03/24/25 22:19 2 UNITS Dextrose 50 ml UD PRN IV 03/22/25 20:00 Pantoprazole Sodium 40 mg BID IV 03/23/25 22:00 03/25/25 09:04 40 MG Furosemide 20 mg DAILY IV 03/24/25 10:00 03/25/25 09:05 20 MG Thiamine HCl 250 mg DAILY IV 03/26/25 10:00 UNV laboratory and microbiology Laboratory Tests 03/25/25 05:30 Test 03/25/25 05:30 Range/Units Serum Glucose 136 H 74-106 mg/dL Microbiology Date/Time Source Procedure Growth Status 03/22/25 00:12 Nose MRSA Screen - Final Complete 03/21/25 13:15 Blood Blood Culture - Preliminary NO GROWTH AFTER 72 HOURS OF INCUBATION. Resulted 03/21/25 12:50 Stool Stool Culture - Final Complete 03/21/25 12:50 Stool Shiga Toxin I & II - Final Complete Problem List/Assessment/Plan Problem List/Assessment/Plan Acute kidney injury likely hemodynamic mediated etiology in the setting of GI bleed Acute hypoxic respiratory failure COVID-19 pneumonia Acute blood loss anemia GI bleed History of Acute kidney injury needed dialysis stopped dialysis six months ago Recommendations IV Lasix dose to 20 mg IV once daily Status post multiple PRBC transfusion- Downgraded from ICU stable renal function Plan discussed with: Patient Dietary Evaluation Review Comments: 1. Tube feeding if EN/GI accessible. Glucerna @60ml/hr (1728kcal 86g Protein 1159ml free water) meeting 100% protein needs and 80% energy needs, 2. F/U with nephrology and GI consults and updated lab values 3. CCHO-60 Cardiac diet when medically feasible and passing REVENUE FIELD AUDITOR eval. Expected Outcomes/Goals: controlled DM, maintain wt, PAM FRY MD Mar 25, 2025 11:39
--- NOTE | 2025-03-25 12:08 | DVHPNRES ---
Progress Note Date Seen: Mar 25, 2025 Resident Creating Document: ELSI NORRIS RESIDENT Medical Necessity Reason Pt with a Central, PICC or Fol: No Subjective Review of Systems Patient is 60 years old male with past medical history of CHF, CKD, CVA, diabetes mellitus type 2, hypertension, seizure disorder came with a complaint of shortness of breaths. As per patient he has been having shortness of breaths for 3 days associated with the PND. Patient reported he came back [place] and started having runny nose and sneezing. Also started having shortness of breaths with the exertion and also with PND. Patient reported having sick contact with the other family members especially his aunt. Patient also endorsed left-sided chest pain for last 3 days, intermittent, sharp, could not give details. Patient denied any fever, dysuria, diarrhea. Patient reported he had hemodialysis before and also he had a defibrillator placed in chest but could not give me the exact reson. Patient reported he was [facility] for 1 and happened then followed by rehab at the same hospital for another 4 months. Patient reported he had some infection in his chest, so his defibrillator was taken off, he also had dialysis and catheter also removed due to infection. On further inquiry patient reported he was not able to walk so he was sent to rehab for almost for 4 month. Initial lab workup revealed positive for COVID-19, anemia with hemoglobin 7.7, thrombocytopenia with platelets 73, serum creatinine 2.05, BUN 23, GFR 36, D-dimer 7.38, INR 1.25, Total bilirubin 2.0, direct bilirubin 1.3, AST 110, ALT 22, alkaline phosphatase 385, troponin I 14, BNP 682, uterine creatinine 132, urine sodium 11, urine protein creatinine ratio 0.09, FENA .1%.. CXR- Increased interstital prominence. This may represent pulmonary vascular congestion and/or viral pneumonia. Doppler study negative for DVT. Echo 2D revealed LVEF 35%, moderate LV dysfunction, right ventricular enlargement moderate with a dysfunction. Biatrial enlargement. Moderate tricuspid regurgitation. PMH-CHF, CKD, CVA, diabetes mellitus type 2, hypertension, seizure disorder PSH- History of AICD implantation and explantation , Status post implantable loop recorder Allergy- aspirin, ibuprofen, lisinopril Personal History/ Social History- Smokes cigarettes less than a pack for 40 years, 1 glass per day alcohol use, marijuana abuse and methamphetamine abuse but denies other drug abuse Gastrointestinal- denies any rectal bleeding, nausea or vomiting Musculoskeletal-denies acute joint swelling or tenderness or redness Neurological- denies acute dysarthria, dysphagia, change in vision Psychiatry- denies depression or SI or HI Skin- denies acute rash or purpura Patient was seen today at bedside. Labs and chart reviewed. Serum creatinine trending down. Patient feeling tired. Physical therapy evaluation reviewed. Patient denied SNF for physical therapy. Objective vital signs Vital Sign Date Time Temp Pulse Resp B/P (MAP) Pulse Ox O2 Delivery O2 Flow Rate FiO2 03/25/25 10:00 97 Room Air 0.0 03/25/25 10:00 21 03/25/25 09:05 110/77 03/25/25 08:00 90 18 03/25/25 04:49 97.8 97.8 Total Intake and Output 03/24/25 03/24/25 03/25/25 15:00 23:00 07:00 Intake Total 1165 ml 1675 ml 290 ml Output Total 1100 ml Balance 1165 ml 575 ml 290 ml medications Current Medications Medications Dose Ordered Sig/Maryan Route Start Time Stop Time Status Last Admin Dose Admin Sodium Chloride 10 ml Q8HR IV 03/20/25 22:00 03/25/25 05:58 10 ML Ondansetron HCl 4 mg Q4HP PRN IV 03/20/25 17:30 Acetaminophen 650 mg Q6HP PRN PO 03/20/25 17:30 03/21/25 21:59 650 MG Morphine Sulfate 2 mg Q4HPRN PRN IV 03/20/25 17:30 03/24/25 21:57 2 MG Nitroglycerin 0.4 mg Q5MINP PRN SL 03/20/25 17:30 Levetiracetam 500 mg BID PO 03/20/25 22:00 03/25/25 09:04 500 MG Amiodarone HCl 200 mg Q12HR PO 03/20/25 22:00 03/25/25 09:04 200 MG Atorvastatin Calcium 20 mg HS PO 03/20/25 22:00 03/24/25 21:56 20 MG Dexamethasone Sodium Phosphate 6 mg DAILY IV 03/21/25 08:30 03/25/25 09:05 6 MG Magnesium Sulfate/ Dextrose 100 ml @ 100 mls/hr Q1HR IV 03/21/25 09:00 03/21/25 10:59 UNV Sucralfate 1 gm QIDACHS PO 03/21/25 17:00 03/25/25 09:04 1 GM Lactulose 30 ml BID PO 03/21/25 22:00 03/25/25 09:04 30 ML Meropenem 50 ml @ 17 mls/hr Q12HR IV 03/21/25 22:00 03/25/25 09:03 17 MLS/HR Albuterol 90 mcg TID IN 03/22/25 14:00 03/25/25 06:53 90 MCG Acetaminophen/ Hydrocodone Bitart 1 tab Q4HPRN PRN PO 03/22/25 08:30 03/24/25 17:01 1 TAB Haloperidol Lactate 2.5 mg Q6HPRN PRN IM 03/22/25 09:00 03/22/25 09:48 2.5 MG Folic Acid 1 mg/ Dextrose 50.2 ml @ 200.8 mls/ hr DAILY INJ 03/22/25 17:15 03/25/25 09:10 200.8 MLS/HR Diagnostic Test (Pha) 1 strip ACHS 03/22/25 22:00 03/25/25 05:58 1 STRIP Insulin Human Regular ACHS SC 03/22/25 22:00 03/24/25 22:19 2 UNITS Dextrose 50 ml UD PRN IV 03/22/25 20:00 Pantoprazole Sodium 40 mg BID IV 03/23/25 22:00 03/25/25 09:04 40 MG Furosemide 20 mg DAILY IV 03/24/25 10:00 03/25/25 09:05 20 MG Thiamine HCl 250 mg DAILY IV 03/26/25 10:00 UNV Examination General examination- awake, alert and oriented HEENT- PEERLA, no acute nasal discharge Cardiovascular- S1-S2 audible, rate and rhythm regular, no murmur Respiratory- CTAB, no wheezing Gastrointestinal-nontender, bowel sound+. Nondistended Musculoskeletal-no acute joint swelling or tenderness or redness Lower extremity- no leg edema Neurological- cranial nerves intact, no acute dysarthria or dysphagia Psychiatry- denies depression or SI or HI Skin- no acute rash or purpura laboratory and microbiology Laboratory Tests 03/25/25 05:30 Test 03/25/25 05:30 Range/Units Serum Glucose 136 H 74-106 mg/dL Microbiology Date/Time Source Procedure Growth Status 03/22/25 00:12 Nose MRSA Screen - Final Complete 03/21/25 13:15 Blood Blood Culture - Preliminary NO GROWTH AFTER 72 HOURS OF INCUBATION. Resulted 03/21/25 12:50 Stool Stool Culture - Final Complete 03/21/25 12:50 Stool Shiga Toxin I & II - Final Complete Problem List/Assessment/Plan Problem List/Assessment/Plan Assessment and plan- patient denied SNF for physical therapy # acute hypoxic respiratory failure likely due to COVID pneumonia/HFpEF # rule out pulmonary embolism # acute pneumonia Gram-positive versus Gram-negative -pending ventilation perfusion mismatch study -continue remdesivir as prescribed -continue Decadron as prescribed -continue ceftriaxone IV 1 g daily -continue doxycycline 100 mg IV b.i.d. -NC O2 as per titration -monitor vitals -as per Radiology as patient is COVID-19 positive V/Q scan can not be done at this time # acute metabolic encephalopathy likely due to acute hepatic failure/hypoxic encephalopathy/pneumonia # suspected Wernicke encephalopathy -ordered lactulose 30 mL p.o. b.i.d. -continue pantoprazole 40 mg IV b.i.d. -continue thiamine 250 mg IV daily -continue other conservative management # septic shock likely due to pneumonia -blood culture no growth so far. -continue meropenem and vancomycin as prescribed. -continue current management -monitor vitals # acute GI bleeding #Suspected acute hepatic failure likely due to acute hepatitis/cirrhosis of liver # transaminitis -continue lactulose 30 mL p.o. b.i.d. -pantoprazole IV 40 mg bid -GI consult reviewed and appreciate. discontinued Protonix and octreotide drip. Ordered IV Protonix 40 mg IV b.i.d.. Advanced to full liquid diet. Recommended for outpatient follow up with GI for endoscopy and colonoscopy. 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 Biatrial enlargement. Moderate tricuspid regurgitation. -continue Lasix 40 mg IV bid # KEKE on CKD likely due to VMN # history of CKD # severe anemia likely due to acute GI bleeding -avoid dehydration and nephrotoxic drugs -nephrology recommendation reviewed and appreciated # severe anemia # bicytopenia # thrombocytopenia under evaluation -s/p 4 units blood transfusion -monitor CBC, CMP # seizure disorder -resume home medication Keppra 500 mg p.o. b.i.d. # substance abuse- +UDS: PCP/cannabinoids #Tobacco/alcohol use -patient was counseled about the effect of substance abuse, smoking/alcoholism on health Goals of care, Code status ; discussed with >15 minutes PUD prophylaxis: SCD DVT prophylaxis: Pantoprazole Plan discussed with , nursing staff, Total time spent on patient evaluation, chart review, assessment and plan, discussion discussion >75 minutes Plan discussed with: Patient, Other (RN) My Orders My Orders Orders - ELSI NORRIS Procedure Category Date Status Time Pt Request For Service PT 03/24/25 Logged 12:23 Thiamine Inj PHA 03/26/25 Logged 10:00 * Circuit Designer CONS 03/25/25 Transmitted Consult Dietary Evaluation Review Comments: 1. Tube feeding if EN/GI accessible. Glucerna @60ml/hr (1728kcal 86g Protein 1159ml free water) meeting 100% protein needs and 80% energy needs, 2. F/U with nephrology and GI consults and updated lab values 3. CCHO-60 Cardiac diet when medically feasible and passing BOOKKEEPING MANAGER eval. Expected Outcomes/Goals: controlled DM, maintain wt, Date of Service: Mar 25, 2025 Billing Provider: MARLEN MCNALLY MD Common Visit Codes: [id number] INP/OBS CARE(HIGH) ELSI NORRIS Mar 25, 2025 12:08 MARLEN MCNALLY MD Mar 29, 2025 19:46
[2025-03-26 00:37] VITALS: BP 126/87; PULSE 72; RESP 18; TEMP 98; O2SAT 96
[2025-03-26 05:00] VITALS: BP 123/70; PULSE 91; RESP 18; TEMP 98.4; O2SAT 97
[2025-03-26 06:00] LABS: Hematocrit 23.3 % (41.0-53.0); Hemoglobin 7.9 g/dL (13.5-17.5); Mean Corpuscular Hemoglobin 27.6 pg (28.0-32.0); Mean Corpuscular Volume 81.9 fL (80.0-100.0); Nucleated Red Blood Cells % 0.2 %
[2025-03-26 06:13] LABS: Alanine Aminotransferase 18 U/L (7-40); Anion Gap 10 (5-15); BUN/Creatinine Ratio 18.6 (10.0-20.0); Magnesium 1.8 mg/dL (1.6-2.6); Potassium 3.9 mmol/L (3.5-5.1); Sodium 141 mmol/L (136-145); Total Protein 6.6 g/dL (5.7-8.2)
[2025-03-26 06:25] LABS: Albumin 2.7 g/dL (3.2-4.8); Alkaline Phosphatase 272 U/L (46-116); Bilirubin, Total 1.2 mg/dL (0.2-1.0); Blood Urea Nitrogen 35 mg/dL (9-23); Calcium 8.6 mg/dL (8.7-10.4); Carbon Dioxide 20 mmol/L (20-31); Chloride 111 mmol/L (98-107); Glucose 111 mg/dL (74-106)
[2025-03-26 07:08] VITALS: O2SAT 95
[2025-03-26 07:30] VITALS: PULSE 71; PULSE 77; RESP 18; O2SAT 99
[2025-03-26 09:29] VITALS: BP 134/74; PULSE 77; RESP 18; TEMP 98.3; O2SAT 97
[2025-03-26] MEDS: THIAMINE 100mg/ml INJ (200mg/2ml VIAL) IV SCH (10:55)
[2025-03-26] MEDS ORDERED: PANT40TA2 PO (13:42)
[2025-03-26] MEDS ORDERED: FOLI-119 PO (13:42)
[2025-03-26] MEDS ORDERED: SUCR1TAB PO (13:42)
[2025-03-26] MEDS ORDERED: AMIO200T13 PO (13:42)
[2025-03-26] MEDS ORDERED: LACT10SO3 PO (13:42)
[2025-03-26] MEDS ORDERED: THIA100T13 PO (13:42)
[2025-03-26] MEDS ORDERED: FURO1TAB31 PO (13:42)
--- NOTE | 2025-03-26 17:03 | DVHDSRES ---
Discharge Summary Date of Admission Resident Creating Document: SHELLY BHATTI RESIDENT Mar 20, 2025 at 17:17 Date of Discharge: Mar 26, 2025 Admitting Diagnosis Acute hypoxic respiratory failure Labs/Diagnostic Data: Laboratory Results Test 03/26/25 11:21 03/26/25 04:43 03/23/25 05:44 03/22/25 04:50 POC Glucose 120 mg/dl (70-106) White Blood Count 6.8 10^3/uL (4.4-10.8) Red Blood Count 2.85 10^6/uL (4.5-5.90) Hemoglobin 7.9 g/dL (13.5-17.5) Hematocrit 23.3 % (41.0-53.0) Mean Corpuscular Volume 81.9 fL (80.0-100.0) Mean Corpuscular Hemoglobin 27.6 pg (28.0-32.0) Mean Corpuscular Hemoglobin Concent 33.7 g/dL (32.0-36.0) Red Cell Distribution Width 19.6 % (11.8-14.3) Platelet Count 41 10^3/uL (140-450) Mean Platelet Volume 8.8 fL (6.9-10.8) Neutrophils (%) (Auto) 78.3 % (37.0-80.0) Lymphocytes (%) (Auto) 12.0 % (10.0-50.0) Monocytes (%) (Auto) 9.6 % (0.0-12.0) Eosinophils (%) (Auto) 0.1 % (0.0-7.0) Basophils (%) (Auto) 0.0 % (0.0-2.0) Neutrophils # (Auto) 5.3 10 ^3/uL (1.6-8.6) Lymphocytes # (Auto) 0.8 10 ^3/uL (0.4-5.4) Monocytes # (Auto) 0.7 10 ^3/uL (0-1.3) Eosinophils # (Auto) 0 10 ^3/uL (0-0.8) Basophils # (Auto) 0 10 ^3/uL (0-0.2) Nucleated Red Blood Cells 0.2 % Sodium Level 141 mmol/L (136-145) Potassium Level 3.9 mmol/L (3.5-5.1) Chloride Level 111 mmol/L (98-107) Carbon Dioxide Level 20 mmol/L (20-31) Anion Gap 10 (5-15) Blood Urea Nitrogen 35 mg/dL (9-23) Creatinine 1.88 mg/dL (0.700-1.30) Glomerular Filtration Rate Calc 40 mL/min (>90) BUN/Creatinine Ratio 18.6 (10.0-20.0) Serum Glucose 111 mg/dL (74-106) Calcium Level 8.6 mg/dL (8.7-10.4) Magnesium Level 1.8 mg/dL (1.6-2.6) Total Bilirubin 1.2 mg/dL (0.2-1.0) Aspartate Amino Transferase (AST) 46 U/L (13-40) Alanine Aminotransferase (ALT) 18 U/L (7-40) Alkaline Phosphatase 272 U/L (46-116) Total Protein 6.6 g/dL (5.7-8.2) Albumin 2.7 g/dL (3.2-4.8) Prothrombin Time 13.0 sec (9.3-11.8) Prothrombin Time INR 1.25 (0.9-1.15) Activated Partial Thromboplast Time 33.7 SEC (24.5-34.5) Ammonia 15 umol/L (11-32) B-Type Natriuretic Peptide 439.99 pg/mL (0-100) Test 03/21/25 20:10 03/21/25 12:50 03/21/25 10:59 03/21/25 05:15 Lactic Acid Level 0.9 mmol/L (0.4-2.0) Stool Occult Blood Positive (Negative) Stool Occult Blood Sample #3 (Negative) Ferritin 177.3 ng/mL (22-322) Hepatitis A IgM Antibody Negative Hepatitis B Surface Antigen Negative (Negative) Hepatitis B Core IgM Antibody Negative (Negative) Hepatitis C Antibody Negative (Negative) Platelet Estimate Decreased Large Platelets Few Poikilocytosis (manual) Slight Anisocytosis (manual) Slight Microcytosis Slight Target Cells Few Ovalocytes Few Schistocytes Few HIV-1 RNA (PCR) <20 copies/mL (.) HIV-1 RNA (PCR) log10 Value (.) Test 03/21/25 01:05 03/21/25 00:50 03/20/25 23:30 03/20/25 18:35 Iron Level 190 ug/dL (65-175) Total Iron Binding Capacity 234 ug/dL (250-425) Percent Iron Saturation 81.2 % (20-55) Urine Color Yellow (Yellow) Urine Clarity Clear (Clear) Urine pH 6.0 (5.0-9.0) Urine Specific [place] 1.015 (1.001-1.035) Urine Protein Negative (Negative) Urine Ketones 1+ (Negative) Urine Blood Negative /uL (Negative) Urine Nitrite Negative (Negative) Urine Bilirubin Negative (Negative) Urine Urobilinogen Normal mg/dL (Negative) Urine Leukocyte Esterase Negative /uL (Negative) Urine RBC None seen /hpf (0 - 3) Urine Microscopic WBC < 1 /HPF (0-3) Urine Squamous Epithelial Cells None seen /hpf (<5) Urine Uric Acid Crystals Many /hpf (None Seen) Urine Bacteria None seen /hpf (None Seen) Urine Creatinine 131.85 mg/dL (30.0-125.0) Urine Protein/Creatinine Ratio 0.09 Urine Sodium 11 mmol/L (40-220) Urine Glucose Normal mg/dL (Normal) Urine Total Protein 12.5 mg/dL (1-14) Urine Opiates Screen Neg (NEGATIVE) Urine Fentanyl Screen Neg (NEGATIVE) Urine Barbiturates Screen Neg (NEGATIVE) Urine Phencyclidine Screen Pos (NEGATIVE) Urine Amphetamines Screen Neg (NEGATIVE) Urine Benzodiazepines Screen Neg (NEGATIVE) Urine Cocaine Screen Neg (NEGATIVE) Urine Cannabinoids Screen Pos (NEGATIVE) Influenza Type A Antigen Negative (Negative) Influenza Type B Antigen Negative (Negative) SARS-CoV-2 Antigen (Rapid) Positive (NEGATIVE) Hemoglobin A1c 5.5 % A1C (<5.7) Direct Bilirubin 1.3 mg/dL (<0.3) Troponin I High Sensitivity 12 ng/L (</=54) Plasma/Serum Blood Alcohol < 3.0 mg/dL (<10) Test 03/20/25 15:19 Hypochromasia (manual) Slight D-Dimer, Quantitative 7.38 mg/L FEU (0.0-0.49) Triglycerides Level 59 mg/dL (< 150) Cholesterol Level 90 mg/dL (< 200) LDL Cholesterol 39 mg/dL (< 100) HDL Cholesterol 35 mg/dL (40-59) Thyroid Stimulating Hormone (TSH) 0.78 uIU/mL (0.55-4.78) Other Laboratory Tests 03/26/25 04:43 Brief Hx & Hospital Course: CHEST RADIOGRAPH IMPRESSION: Increased interstital prominence. This may represent pulmonary vascular congestion and/or viral pneumonia. Clinical correlation advised. ------- US BiLat Lower DVT IMPRESSION: No right or left lower extremity deep venous thrombosis. ------ CLINICAL HISTORY: Rule out cirrhosis of liver/acute hepatitis/choledocholithia TECHNIQUE: Transabdominal sonogram was performed of the right upper quadrant. IMPRESSION: Coarsened liver echotexture and nodular Nodular liver contour, suggesting cirrhosis. ---- CHEST RADIOGRAPH IMPRESSION: 1. Increased interstital prominence. This may represent pulmonary vascular congestion and/or viral pneumonia. Clinical correlation advised. Operations or Procedures The patient is a 60-year-old male with a significant past medical history including congestive heart failure (CHF), chronic kidney disease (CKD), cerebrovascular accident (CVA), type 2 diabetes mellitus, hypertension, and seizure disorder, who presented with shortness of breath for three days, associated with paroxysmal nocturnal dyspnea (PND), left-sided chest pain, and upper respiratory symptoms following travel to [place] and exposure to sick contacts. Initial evaluation revealed COVID-19 infection, acute hypoxic respiratory failure, acute pneumonia, and septic shock. Additional findings included acute metabolic encephalopathy, suspected Wernicke encephalopathy, acute GI bleeding, transaminitis, acute on chronic HFpEF (NYHA class IV), cardiogenic shock, KEKE on CKD, severe anemia, thrombocytopenia, and substance abuse. Imaging and labs showed moderate left ventricular dysfunction, right ventricular enlargement, biatrial enlargement, and moderate tricuspid regurgitation. The patient received comprehensive treatment including oxygen therapy, remdesivir, Decadron, IV antibiotics (ceftriaxone, doxycycline, meropenem, vancomycin), lactulose, thiamine, pantoprazole, and blood transfusions. Despite clinical improvement and plans for discharge, the patient chose to leave the hospital against medical advice (AMA). He was thoroughly counseled regarding his diagnoses, treatment plan, and the risks of leaving prematurely, but he left prior to formal discharge. General examination- awake, alert and oriented HEENT- PEERLA, no acute nasal discharge Cardiovascular- S1-S2 audible, rate and rhythm regular, no murmur Respiratory- CTAB, no wheezing Gastrointestinal-nontender, bowel sound+. Nondistended Musculoskeletal-no acute joint swelling or tenderness or redness Lower extremity- no leg edema Neurological- cranial nerves intact, no acute dysarthria or dysphagia Psychiatry- denies depression or SI or HI Skin- no acute rash or purpura Condition at Discharge: Undetermined Final Diagnosis/Problems List # acute hypoxic respiratory failure likely due to COVID pneumonia/HFpEF # rule out pulmonary embolism # acute pneumonia Gram-positive versus Gram-negative # acute metabolic encephalopathy likely due to acute hepatic failure/hypoxic encephalopathy/pneumonia # suspected Wernicke encephalopathy # septic shock likely due to pneumonia # acute GI bleeding #Suspected acute hepatic failure likely due to acute hepatitis/cirrhosis of liver # transaminitis # acute on chronic HFpEF, NYHA class 4 # cardiogenic shock, discontinued Levophed #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 #Presence of loop recorder # bilateral leg edema, rule out DVT/CHF # KEKE on CKD likely due to VMN # history of CKD # severe anemia likely due to acute GI bleeding # severe anemia # bicytopenia # thrombocytopenia under evaluation # seizure disorder # substance abuse- +UDS: PCP/cannabinoids # Tobacco/alcohol use Discharge Disposition: AMA Discharge Instruct/Medications Diet: Consistent carbohydrate, Cardiac 2g Na,low cholest Activity: No Restrictions, As Tolerated Follow Up/Referral: PCP [facility] Medications: per emr Scheduled Amiodarone HCl (Amiodarone HCl), 200 MG PO Q12HR Atorvastatin Calcium (Atorvastatin Calcium), 1 TAB PO DAILY, (Reported) Bumetanide (Bumetanide), 1 TAB PO BID, (Reported) Cephalexin Monohydrate (Cephalexin), 1 CAP PO TID, (Reported) Folic Acid (Folic Acid), 1 MG PO DAILY Furosemide (Lasix), 40 MG PO DAILY Gabapentin (Gabapentin), 1 CAP PO DAILY, (Reported) Hydrocodone-Acetaminophen (Hydrocodone Bitartrate/AC 10-325 mg), 1 TAB PO QID, (Reported) Lactulose (Lactulose), 30 ML PO BID Levetiracetam (Levetiracetam), 1 TAB PO BID, (Reported) Losartan Potassium (Losartan Potassium), 1 TAB PO DAILY, (Reported) Pantoprazole Sodium Sesquihydr (Protonix), 40 MG PO BID Sodium Bicarbonate (Sodium Bicarbonate), 1 TAB PO BID, (Reported) Sucralfate (Sucralfate), 1 GM PO QIDACHS Thiamine HCl (Thiamine Hydrochloride), 100 MG PO DAILY Tizanidine Hydrochloride (Tizanidine Hydrochloride), 1 TAB PO DAILY, (Reported) Discharge Statement: "Patient was advised to return to the ER or call 911 if any headaches, dizziness, shortness of breath, chest pain, abdominal pain, bleeding, fevers, or worsening of medical condition. Patient was counseled about treatment plan, medications, possible side effects, patientverbalized understanding. All questions were answered to the best of my ability. This discharge took greater then 30 minutes in planning, reviewing documentation, counseling the patient, and discussing with other team members." ASSESSMENT ASSESSMENT Assessment # acute hypoxic respiratory failure likely due to COVID pneumonia/HFpEF # rule out pulmonary embolism # acute pneumonia Gram-positive versus Gram-negative # acute metabolic encephalopathy likely due to acute hepatic failure/hypoxic encephalopathy/pneumonia # suspected Wernicke encephalopathy # septic shock likely due to pneumonia # acute GI bleeding #Suspected acute hepatic failure likely due to acute hepatitis/cirrhosis of liver # transaminitis # acute on chronic HFpEF, NYHA class 4 # cardiogenic shock, discontinued Levophed #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
--- NOTE | 2025-03-27 10:54 | DVHPN2 ---
Progress Note Date Seen: Mar 24, 2025 Medical Necessity Reason Pt with a Central, PICC or Fol: No Subjective Patient reports: No new complaints Review of Systems: Deferred Objective vital signs Vital Sign Date Time Temp Pulse Resp B/P (MAP) Pulse Ox O2 Delivery O2 Flow Rate FiO2 03/26/25 10:43 134/75 03/26/25 09:29 98.3 77 18 97 98.3 03/26/25 07:30 Room Air* 0 21 Total Intake and Output 03/26/25 03/26/25 03/27/25 15:00 23:00 07:00 Intake Total 100.2 ml Balance 100.2 ml medications Current Medications Medications Dose Ordered Sig/Maryan Route Start Time Stop Time Status Last Admin Dose Admin Magnesium Sulfate/ Dextrose 100 ml @ 100 mls/hr Q1HR IV 03/21/25 09:00 03/21/25 10:59 UNV laboratory and microbiology Laboratory Tests 03/26/25 04:43 Test 03/26/25 04:43 Range/Units Serum Glucose 111 H 74-106 mg/dL Microbiology Date/Time Source Procedure Growth Status 03/22/25 00:12 Nose MRSA Screen - Final Complete 03/21/25 13:15 Blood Blood Culture - Final NO GROWTH AFTER 5 DAYS OF INCUBATION. Complete 03/21/25 12:50 Stool Stool Culture - Final Complete 03/21/25 12:50 Stool Shiga Toxin I & II - Final Complete Problem List/Assessment/Plan Problem List/Assessment/Plan Acute kidney injury likely hemodynamic mediated etiology in the setting of GI bleed Acute hypoxic respiratory failure COVID-19 pneumonia Acute blood loss anemia GI bleed History of Acute kidney injury needed dialysis stopped dialysis six months ago Recommendations IV Lasix dose to 20 mg IV once daily Status post multiple PRBC transfusion- Downgraded from ICU stable renal function Plan discussed with: Patient Dietary Evaluation Review Comments: 1. Tube feeding if EN/GI accessible. Glucerna @60ml/hr (1728kcal 86g Protein 1159ml free water) meeting 100% protein needs and 80% energy needs, 2. F/U with nephrology and GI consults and updated lab values 3. CCHO-60 Cardiac diet when medically feasible and passing DIRECTOR OF HEAD START eval. Expected Outcomes/Goals: controlled DM, maintain wt, PAM FRY MD Mar 27, 2025 10:54
--- NOTE | 2025-03-27 10:55 | DVHPN2 ---
Progress Note Date Seen: Mar 26, 2025 Medical Necessity Reason Pt with a Central, PICC or Fol: No Subjective Patient reports: No new complaints Review of Systems: Deferred Objective vital signs Vital Sign Date Time Temp Pulse Resp B/P (MAP) Pulse Ox O2 Delivery O2 Flow Rate FiO2 03/26/25 10:43 134/75 03/26/25 09:29 98.3 77 18 97 98.3 03/26/25 07:30 Room Air* 0 21 Total Intake and Output 03/26/25 03/26/25 03/27/25 15:00 23:00 07:00 Intake Total 100.2 ml Balance 100.2 ml medications Current Medications Medications Dose Ordered Sig/Maryan Route Start Time Stop Time Status Last Admin Dose Admin Magnesium Sulfate/ Dextrose 100 ml @ 100 mls/hr Q1HR IV 03/21/25 09:00 03/21/25 10:59 UNV laboratory and microbiology Laboratory Tests 03/26/25 04:43 Test 03/26/25 04:43 Range/Units Serum Glucose 111 H 74-106 mg/dL Microbiology Date/Time Source Procedure Growth Status 03/22/25 00:12 Nose MRSA Screen - Final Complete 03/21/25 13:15 Blood Blood Culture - Final NO GROWTH AFTER 5 DAYS OF INCUBATION. Complete 03/21/25 12:50 Stool Stool Culture - Final Complete 03/21/25 12:50 Stool Shiga Toxin I & II - Final Complete Problem List/Assessment/Plan Problem List/Assessment/Plan Acute kidney injury likely hemodynamic mediated etiology in the setting of GI bleed Acute hypoxic respiratory failure COVID-19 pneumonia Acute blood loss anemia GI bleed History of Acute kidney injury needed dialysis stopped dialysis six months ago Recommendations IV Lasix dose to 20 mg IV once daily Status post multiple PRBC transfusion- Downgraded from ICU stable renal function late entry given computer issues/network issues Plan discussed with: Patient Dietary Evaluation Review Comments: 1. Tube feeding if EN/GI accessible. Glucerna @60ml/hr (1728kcal 86g Protein 1159ml free water) meeting 100% protein needs and 80% energy needs, 2. F/U with nephrology and GI consults and updated lab values 3. CCHO-60 Cardiac diet when medically feasible and passing NEWS CLERK eval. Expected Outcomes/Goals: controlled DM, maintain wt, PAM FRY MD Mar 27, 2025 10:55
== END 2025-03-26 13:00 | disposition left against medical advice (07) | DRG 720 ==
LOC: ER 13:27 → EDBD 13:27 → OVERFLOW 17:17 → TELE-WESTW 23:06 → TELE-CENTR 03-21 02:43 → ICU CENTRL 03-21 23:48 → TELE-EAST 03-22 22:36
PROVIDERS: ADMIT Internal Medicine Geriatric Medicine; ATTEND Internal Medicine Geriatric Medicine
PROC: 30233N1 Transfusion of Nonautologous Red Blood Cells into Peripheral Vein, Percutaneous Approach (ICD-10-PCS; principal; 2025-03-21)
PROC: 05H933Z Insertion of Infusion Device into Right Brachial Vein, Percutaneous Approach (ICD-10-PCS; 2025-03-21)
PROC: B54MZZA Ultrasonography of Right Upper Extremity Veins, Guidance (ICD-10-PCS; 2025-03-21)
DX: A41.89 Other specified sepsis (principal); R57.0 Cardiogenic shock; K72.00 Acute and subacute hepatic failure without coma; N17.0 Acute kidney failure with tubular necrosis; R65.21 Severe sepsis with septic shock; G92.8 Other toxic encephalopathy; G93.1 Anoxic brain damage, not elsewhere classified; J12.82 Pneumonia due to coronavirus disease 2019; J96.01 Acute respiratory failure with hypoxia; K92.2 Gastrointestinal hemorrhage, unspecified; R57.1 Hypovolemic shock; D69.6 Thrombocytopenia, unspecified; D50.9 Iron deficiency anemia, unspecified; F15.90 Other stimulant use, unspecified, uncomplicated; U07.1 COVID-19; D62 Acute posthemorrhagic anemia; K74.60 Unspecified cirrhosis of liver; G40.909 Epilepsy, unspecified, not intractable, without status epilepticus; E51.2 Wernicke's encephalopathy; J15.69 Pneumonia due to other Gram-negative bacteria; F10.10 Alcohol abuse, uncomplicated; Z53.29 Procedure and treatment not carried out because of patient's decision for other reasons; F12.10 Cannabis abuse, uncomplicated; I50.33 Acute on chronic diastolic (congestive) heart failure; I07.1 Rheumatic tricuspid insufficiency; N18.32 Chronic kidney disease, stage 3b; J15.9 Unspecified bacterial pneumonia; R74.01 Elevation of levels of liver transaminase levels; I13.0 Hypertensive heart and chronic kidney disease with heart failure and stage 1 through stage 4 chronic kidney disease, or unspecified chronic kidney disease; E11.22 Type 2 diabetes mellitus with diabetic chronic kidney disease; M10.9 Gout, unspecified; Z86.73 Personal history of transient ischemic attack (TIA), and cerebral infarction without residual deficits; Z88.6 Allergy status to analgesic agent; Z88.3 Allergy status to other anti-infective agents; Z88.8 Allergy status to other drugs, medicaments and biological substances; Z79.899 Other long term (current) drug therapy; Y90.9 Presence of alcohol in blood, level not specified; Z91.199 Patient's noncompliance with other medical treatment and regimen due to unspecified reason
CPT/HCPCS: 36415; 71045; 76705; 80048; 80053; 80061; 80074; 80076; 80307; 80320; 81001; 82140; 82270; 82570; 82728; 82962; 83036; 83540; 83550; 83605; 83735; 83880; 84156; 84300; 84443; 84484; 85014; 85018; 85025; 85379; 85610; 85730; 86850; 86900; 86901; 86920; 87040; 87045; 87081; 87426; 87427; 87536; 87804; 93005; 93306; 93970; 94640; 97110; 97116; 97163; 97530; 99291; 99292; G0378; J1100; J1815; J2185; J2405; J2470; J7060; P9047